=== PATIENT | female | born 1940 | race Caucasian/White ===

== ENCOUNTER 2018-10-31 12:56 | Day surgery (SDC) | payer OTHER ==
[2018-10-31] MEDS ORDERED: NA CHLORIDE 0.9% 500 ML ONE (13:18)
[2018-10-31] MEDS ORDERED: CYCLOPENTOLATE 1% OPTH 2 ML ONE (13:18)
[2018-10-31] MEDS ORDERED: LIDOCAINE 2% MPF 5 ML VIAL ONE ×2 (13:18→13:50)
[2018-10-31] MEDS ORDERED: BUPIVACAINE 0.25% PF 30 ML VIAL ONE (13:18)
[2018-10-31] MEDS ORDERED: PHENYLEPHRINE 10% OPTH 5ML ONE (13:18)
[2018-10-31 13:24] VITALS: O2SAT 97
[2018-10-31] MEDS ORDERED: CYCLOPENTOLATE 1% OPTH 2 ML OPTH ONE ×2 (13:25→13:30)
[2018-10-31] MEDS ORDERED: PHENYLEPHRINE 10% OPTH 5ML OPTH ONE ×2 (13:25→13:30)
[2018-10-31] MEDS ORDERED: NS 0.9% VIAL 10 ML ONE (13:34)
[2018-10-31] MEDS ORDERED: PROPOFOL 200 MG/20 ML VIAL IV ONE (13:49)
[2018-10-31] MEDS: BALANCED SALT IRRIG PLAIN 500 ML BTL IRR ONE ×2 (13:49→14:20)
[2018-10-31] MEDS: MOXIFLOXACIN HCL 10 DROPS/ML **OR USE OPTH ONE ×2 (13:50→14:20)
[2018-10-31] MEDS: DUOVISC 1 KIT OPTH ONE ×2 (13:50→14:20)
[2018-10-31] MEDS: EPINEPHRINE/PF 1 MG/ML AMP ONE ×4 (13:50→14:20)
[2018-10-31] MEDS: TETRACAINE HCL 0.5% 2ML OPTH ONE ×2 (13:53→14:13)
[2018-10-31] MEDS ORDERED: EPINEPHRINE/PF 1 MG/ML AMP ONE (14:23)
[2018-10-31] MEDS ORDERED: BSS OPTHALMIC SOL 15 ML BOT OPTH ONE (14:33)
--- NOTE | 2018-10-31 15:04 | P.BOP ---
Preoperative diagnosis: Nuclear sclerotic cataract OD Postoperative diagnosis: Same Primary procedure: Phacoemulsification with IOL OD Estimated blood loss: None Anesthesia: Local (Subtenon's infusion with anesthesia for cataract surgery) Complications: None Implants: SN60WF +20.0 Transferred to: Other (Day surgery) Condition: Good
[2018-10-31 15:12] VITALS: BP 166/41; TEMP 98.3
--- NOTE | 2018-11-01 02:38 | OP ---
Date of Procedure: 10/31/2018 Surgeon: Aletha Shaw MD Anesthesiologist: Kimmie Flores C.R.N.A. and Edward Rivera M.D. Preoperative Diagnosis: Nuclear slerotic cataract and Miosis, right eye. Operation Performed: Phacoemulsification with intraocular lens implant right eye complex with the use of iris retractors. Anesthesia: Per cataract surgery. Complications: None. Description Of The Procedure: In day surgery, the patient was prepped with Betadine and draped. A lid speculum was placed in the right eye. A conjunctival incision was made in the inferior nasal quadrant with Jose scissors. A 1:1 mixture of 2% Xylocaine and 0.25% bupivacaine was placed around the globe. Approximately 5 mL were used. A [place] balloon was placed on the eye for approximately 5 minutes. The patient was brought into the operative room. The patient was prepped and draped in the usual sterile fashion for ophthalmic surgery. A lid speculum was placed in the eye. Paracenteses were made superiorly and inferiorly in the limbal cornea. Viscoat was placed in the anterior chamber. A crescent blade was used to create a tunnel incision in the temporal cornea and a keratome was used to enter the anterior chamber. Five additional paracentesis sites were created with one at the wound, one 180 degrees from the wound, and three in the superior and inferior quadrants; through these, 5 iris retractors were placed. Provisc was placed in the eye and 360 degree capsulotomy was performed. The lens was hydrodissected with balanced salt solution and moved freely. The lens was removed in a stop and chop fashion. 29.05 CDE was required. Irrigation and aspiration were used to remove residual cortex. Provisc was placed in the eye. A SN60WF +20.0 diopter lens was placed in the capsular bag without complications. The iris retractors were removed. Irrigation and aspiration were used to remove residual viscoelastic. The paracentesis sites were hydrated with balanced salt solution and the wound and paracentesis sites were inspected and found to be watertight. Intracameral Vigamox 0.07 cc was injected at the end of the procedure. The eye was irrigated with balanced salt solution. The eye was patched with a soft cotton patch and Mims metal shield. The patient was returned to day surgery in good condition. Comments: A 1:5000 epinephrine was placed in the eye prior to Viscoat. The iris did not dilate adequately for capsulotomy and iris retractors were used. Discharge Instructions: Ms. Martin is discharged to home in good condition and is to follow up with Dr. Shaw in the morning. STEFAN/YUMIKO Voice ID: [id number] Report ID: [id number] MTDD
== END 2018-10-31 15:32 | disposition home or self-care (01) ==
LOC: OR 12:56
PROVIDERS: ATTEND Ophthalmology Retina Specialist
PROC: 08RJ3JZ Replacement of Right Lens with Synthetic Substitute, Percutaneous Approach (ICD-10-PCS; principal; 2018-10-31 12:15)
DX: H25.11 Age-related nuclear cataract, right eye (principal); H57.03 Miosis; I10 Essential (primary) hypertension; E78.5 Hyperlipidemia, unspecified; Z79.82 Long term (current) use of aspirin; Z79.899 Other long term (current) drug therapy; Z87.891 Personal history of nicotine dependence; Z87.09 Personal history of other diseases of the respiratory system
CPT/HCPCS: 66982; J0171 ×2; J2704; V2630

== ENCOUNTER 2019-04-13 21:16 | Observation (INO) | payer OTHER ==
[2019-04-14 00:21] LABS: Absolute Lymphocytes (CBC) 1.2 K/uL (0.7-4.9); Absolute Monocytes 0.7 K/uL (0.1-1.3); Absolute Neutrophil 10.3 K/uL (1.8-8.0); Basophils % 0.6 % (0-1.3); Eosinophils % 0.1 % (0-4.4); Lymphocytes % 9.9 % (15.3-44.8); MPV 10.4 fL (7.6-11.3); Monocytes % 5.4 % (3.3-12.3); RBC Red Blood Cell Count 4.28 M/uL (3.86-4.86)
[2019-04-14 00:27] LABS: Magnesium 2.5 mg/dL (1.8-2.4); Potassium 3.5 mmol/L (3.5-5.1)
--- NOTE | 2019-04-14 01:21 | EDPHYS ---
Physician Documentation [facility] Name: Lila Martin Age: 79 yrs Sex: Female : 1940 Arrival Date: 04/13/2019 Time: 21:23 Bed 4 Private MD: ED Physician Ar Valle HPI: 04/14 01:20 This 79 yrs old Female presents to ER via EMS with complaints of Fall Injury. gs 01:20 Details of fall: The patient fell from an upright position, while standing. Onset: The gs symptoms/episode began/occurred acutely. Associated injuries: The patient sustained injury to the head, contusion, left elbow, decreased range of motion, deformity, obvious fracture. Severity of symptoms: At their worst the symptoms were severe, in the emergency department the symptoms are unchanged. The patient has not experienced similar symptoms in the past. Historical: - Allergies: 04/13 21:41 Codeine; fc 21:41 Guaifenesin; fc - Home Meds: 21:41 Aspir-81 81 mg Oral TbEC 1 tab once daily [Active]; Zantac 150 mg Oral tab 1 tab once fc daily [Active]; lisinopril 5 mg Oral tab 1 tab twice a day [Active]; pravastatin 40 mg Oral tab 1 tab nightly [Active]; Singulair 10 mg Oral tab 1 tab once daily [Active]; citalopram 20 mg tab 1 tab once daily [Active]; - PMHx: 21:41 Depression; Hypertension; Hyperlipidemia; Anemia; GI Bleed; GERD; osteoarthritis; High fc Cholesterol; COPD; Sleep Apnea; - PSHx: 21:41 L hip surgery; fc - Immunization history: Last tetanus immunization: - up to date. - Social history:: Smoking status: Patient uses tobacco products, smokes one pack cigarettes per day. Patient/guardian denies using alcohol, street drugs. - Ebola Screening: : Patient negative for fever greater than or equal to 101.5 degrees Fahrenheit, and additional compatible Ebola Virus Disease symptoms Patient denies exposure to infectious person Patient denies travel to an Ebola-affected area in the 21 days before illness onset. ROS: 04/14 01:20 All other systems are negative. gs Exam: 01:20 Head/Face: Normocephalic, atraumatic. Eyes: Pupils equal round and reactive to light, gs extra-ocular motions intact. Lids and lashes normal. Conjunctiva and sclera are non-icteric and not injected. Cornea within normal limits. Periorbital areas with no swelling, redness, or edema. ENT: Nares patent. No nasal discharge, no septal abnormalities noted. Tympanic membranes are normal and external auditory canals are clear. Oropharynx with no redness, swelling, or masses, exudates, or evidence of obstruction, uvula midline. Mucous membranes moist. Chest/axilla: Normal chest wall appearance and motion. Nontender with no deformity. No lesions are appreciated. Cardiovascular: Regular rate and rhythm with a normal S1 and S2. No gallops, murmurs, or rubs. Normal PMI, no JVD. No pulse deficits. Respiratory: Lungs have equal breath sounds bilaterally, clear to auscultation and percussion. No rales, rhonchi or wheezes noted. No increased work of breathing, no retractions or nasal flaring. Abdomen/GI: Soft, non-tender, with normal bowel sounds. No distension or tympany. No guarding or rebound. No evidence of tenderness throughout. Skin: Warm, dry with normal turgor. Normal color with no rashes, no lesions, and no evidence of cellulitis. Neuro: Awake and alert, GCS 15, oriented to person, place, time, and situation. Cranial nerves II-XII grossly intact. Motor strength 5/5 in all extremities. Sensory grossly intact. Cerebellar exam normal. Normal gait. 01:20 Constitutional: The patient appears alert, awake. 01:20 Neck: C-spine: vertebral tenderness, that is mild. 01:20 Back: vertebral tenderness, is appreciated at T1, T5, T6 and T7. 01:20 Musculoskeletal/extremity: Pulses: are normal with no appreciated deficits, Sensation intact. Joints: the left elbow displays deformity, effusion, limited range of motion, painful range of motion, swelling, tenderness. Vital Signs: 04/13 21:15 BP 156 / 109; Pulse 78; Resp 20; Temp 98.0(O); Pulse Ox 94% on R/A; Weight 52.16 kg fc (R); Height 5 ft. 3 in. (160.02 cm) (R); Pain 1/10; 22:45 BP 163 / 92; Pulse 85; Resp 20; Pulse Ox 100% on 2 lpm NC; Pain 0/10; ao 04/14 00:00 BP 119 / 72; Pulse 89; Resp 20; Pulse Ox 96% ; ao 04/13 21:15 Body Mass Index 20.37 (52.16 kg, 160.02 cm) fc Kyle Coma Score: 04/13 21:15 Eye Response: spontaneous(4). Verbal Response: oriented(5). Motor Response: obeys fc commands(6). Total: 15. Trauma Score (Adult): 21:15 Eye Response: spontaneous(1); Verbal Response: oriented(1); Motor Response: obeys fc commands(2); Systolic BP: > 89 mm Hg(4); Respiratory Rate: 10 to 29 per min(4); [place] Score: 15; Trauma Score: 12 MDM: 21:31 Patient medically screened. 04/14 01:20 Differential diagnosis: closed head injury, contusion, fracture. Data reviewed: vital gs signs, nurses notes, lab test result(s), EKG, radiologic studies. Counseling: I had a detailed discussion with the patient and/or guardian regarding: the historical points, exam findings, and any diagnostic results supporting the discharge/admit diagnosis. Response to treatment: the patient's symptoms have markedly improved after treatment. ED course: intermittent lbbb no chest pain. 04/13 23:25 Order name: CBC with Automated Diff; Complete Time: 01:03 [facility] 04/13 23:25 Order name: CBC with Diff 04/13 23:25 Order name: Basic Metabolic Panel 04/13 23:25 Order name: Magnesium 04/14 00:26 Order name: Troponin (emerg Dept Use Only) 04/14 01:31 Order name: Troponin I [facility] 04/13 21:31 Order name: CT Head C Spine 04/13 21:31 Order name: CT Chest Wo Con 04/13 21:34 Order name: Elbow Left 2 View [facility]IL 04/13 21:36 Order name: Pelvis XRAY 04/14 01:31 Order name: Troponin I [facility] 04/14 01:32 Order name: Echo with Doppler [facility] 04/13 23:13 Order name: Splint - Elbow - Posterior; Complete Time: 01:50 04/14 01:32 Order name: Social Service Consult [facility] 05/24 01:32 Order name: Heart Healthy [facility] 04/14 01:32 Order name: EKG Electrocardiogram EDMS Administered Medications: No medications were administered Disposition: 04/14/19 01:20 Hospitalization ordered by Austin Finley for Observation. Preliminary diagnosis are Displaced fracture of olecranon process with intraarticular extension of left ulna, Atrioventricular and left bundle-branch block - new intermittent. - Bed requested for Telemetry/MedSurg (observation). - Status is Observation. ao - Condition is Stable. - Problem is new. - Symptoms have improved. UTI on Admission? No Signatures: Dispatcher [employer] EDIL Kimberli Rivera, RN RN Tigist Torres RN RN ed1 Wander Mcbride RN RN Ar Escobar MD MD gs Corrections: (The following items were deleted from the chart) 04/13 21:34 21:32 Elbow Left 3 View+RAD.RAD.BRZ ordered. EDIL EDIL 21:42 21:32 Pelvis Wo Cont+CT.RAD.BRZ ordered. EDIL EDIL 04/14 01:40 01:20 Hospitalization Ordered by Austin Finley MD for Observation. Preliminary ed1 diagnosis is Displaced fracture of olecranon process with intraarticular extension of left ulna; Atrioventricular and left bundle-branch block - new intermittent. Bed requested for Telemetry/MedSurg (observation). Status is Observation. Condition is Stable. Problem is new. Symptoms have improved. UTI on Admission? No. gs 02:25 01:40 04/14/2019 01:20 Hospitalization Ordered by Austin Finley MD for Observation. ao Preliminary diagnosis is Displaced fracture of olecranon process with intraarticular extension of left ulna; Atrioventricular and left bundle-branch block - new intermittent. Bed requested for Telemetry/MedSurg (observation). Status is Observation. Condition is Stable. Problem is new. Symptoms have improved. UTI on Admission? No. ed1
--- NOTE | 2019-04-14 01:21 | ER ---
Nurse's Notes [facility] Name: Lila Martin Age: 79 yrs Sex: Female : 1940 Arrival Date: 04/13/2019 Time: 21:23 Bed 4 Private MD: Diagnosis: Displaced fracture of olecranon process with intraarticular extension of left ulna;Atrioventricular and left bundle-branch block-new intermittent Presentation: 04/13 21:15 Presenting complaint: EMS states: that pt was standing in bathroom with one foot in the fc sink cleaning it and fell backwards. Positive LOC. Pt having swelling and pain to left elbow, knot to back of head and has vomited x5 since EMS sweet pickle maker. Care prior to arrival: Medication(s) given: Phenergan, 12.5 mg, zofran 4 mg, IV initiated. 20 GA, in the right wrist. Mechanism of Injury: Fall from standing position. Trauma event details: Injury occurred in the [facility], Injury occurred: at home. Injury occurred: April 13, 2019. 21:15 Acuity: BRIDGETT 2 fc 21:15 Method Of Arrival: EMS: [facility] 21:15 Transition of care: patient was not received from another setting of care. Onset of symptoms was April 13, 2019. Risk Assessment: Do you want to hurt yourself or someone else? Patient reports no desire to harm self or others. Initial Sepsis Screen: Does the patient meet any 2 criteria? No. Patient's initial sepsis screen is negative. Does the patient have a suspected source of infection? No. Patient's initial sepsis screen is negative. Trauma Activation: Alert Physician: ED Physician; Name: Tori; Notified At: 21:14; Arrived At: 21:14 Physician: General Surgeon; Name: ; Notified At: 21:14; Arrived At: Physician: Radiology; Name: Eileen Sullivan Dillion, victoria; Notified At: 21:14; Arrived At: 21:15 Physician: Respiratory; Name: ; Notified At: 21:14; Arrived At: Physician: Lab; Name: ; Notified At: 21:14; Arrived At: Historical: - Allergies: 21:41 Codeine; fc 21:41 Guaifenesin; fc - Home Meds: 21:41 Aspir-81 81 mg Oral TbEC 1 tab once daily [Active]; Zantac 150 mg Oral tab 1 tab once fc daily [Active]; lisinopril 5 mg Oral tab 1 tab twice a day [Active]; pravastatin 40 mg Oral tab 1 tab nightly [Active]; Singulair 10 mg Oral tab 1 tab once daily [Active]; citalopram 20 mg tab 1 tab once daily [Active]; - PMHx: 21:41 Depression; Hypertension; Hyperlipidemia; Anemia; GI Bleed; GERD; osteoarthritis; High fc Cholesterol; COPD; Sleep Apnea; - PSHx: 21:41 L hip surgery; fc - Immunization history: Last tetanus immunization: - up to date. - Social history:: Smoking status: Patient uses tobacco products, smokes one pack cigarettes per day. Patient/guardian denies using alcohol, street drugs. - Ebola Screening: : Patient negative for fever greater than or equal to 101.5 degrees Fahrenheit, and additional compatible Ebola Virus Disease symptoms Patient denies exposure to infectious person Patient denies travel to an Ebola-affected area in the 21 days before illness onset. Screenin:15 Abuse screen: Denies threats or abuse. Tuberculosis screening: No symptoms or risk fc factors identified. 21:15 Nutritional screening: No deficits noted. Fall Risk Fall in past 12 months (25 points). fc Secondary diagnosis (15 points) impaired mobility, IV access (20 points). Ambulatory Aid- None/Bed Rest/Nurse Assist (0 pts). Gait- Weak (10 pts.). Mental Status- Overestimates/Forgets Limitations (15 pts.). Total Guzmán Fall Scale indicates High Risk Score (45 or more points). Fall prevention measures have been instituted. Side Rails Up X 2 Placed Close to Nursing Station Frequent Obs/Assessments Occuring Family Present and informed to notify staff if the need to leave the bedside As available patient and family educated on Fall Prevention Program and Strategies. Primary Survey: 21:15 NO uncontrolled hemorrhage observed. A: The patient is alert. Airway: patent, Oral ao cavity: clear. Breathing/Chest: Respiratory pattern: regular, Respiratory effort: spontaneous, unlabored, Breath sounds: clear, Chest inspection: symmetrical rise and fall of the chest. Circulation: Cardiac rhythm: sinus rhythm Pulses: palpable right radial artery, right posterior tibial artery, right dorsalis pedis artery, left radial artery, left posterior tibial artery and left dorsalis pedis artery. Skin color: pink, Skin temperature: cold. Disability Alert. Exposure/Environment: All clothing and personal items were removed. Clothing may be used as evidence. Items were removed and preserved. There is no evidence of uncontrolled external bleeding. Obvious injury(ies) are noted at this time: left arm reports pain. 21:45 Reassessment Breathing/Chest Respiratory pattern Regular Respiratory effort Spontaneous ao Unlabored Breath sounds Clear Diminished Chest inspection Symmetrical Circulation Heart rhythm Sinus rhythm Heart tones Present Pulses Palpable Color Marceline Temperature Warm Disability Alert. Assessment: 21:15 General: Appears in no apparent distress. uncomfortable, well groomed, well developed, ao well nourished, Behavior is flat, listless. Pain: Complains of pain in left arm Pain currently is 1 out of 10 on a pain scale. Neuro: Level of Consciousness is awake, alert, obeys commands, Oriented to person, place, time, Moves all extremities. Full function Speech is normal, Facial symmetry appears normal. Cardiovascular: Capillary refill < 3 seconds Patient's skin is warm and dry. Respiratory: Airway is patent Respiratory effort is even, unlabored, Respiratory pattern is regular, symmetrical. GI: Abdomen is round obese, Bowel sounds present X 4 quads. : No signs and/or symptoms were reported regarding the genitourinary system. EENT: No signs and/or symptoms were reported regarding the EENT system. Derm: Skin is intact, Skin is pink, warm \T\ dry. normal, Skin temperature is warm. Musculoskeletal: Circulation, motion, and sensation intact. Range of motion: intact in all extremities. Injury Description: Fall from standing position. Family report LOC. Received patient with on boar and with a neck collar. 22:44 Reassessment: Patient appears in no apparent distress at this time. No changes from ao previously documented assessment. Patient and/or family updated on plan of care and expected duration. Pain level reassessed. Per Dr Valle patient is clear to get her c-collar off. C-Collar was removed.. 04/14 00:01 Reassessment: Patient appears in no apparent distress at this time. Patient and/or ao family updated on plan of care and expected duration. Pain level reassessed. Monitoring hearth rhythm. Dr Valle notified of unknown hearth rhythm. 02:18 Reassessment: Patient appears in no apparent distress at this time. Patient and/or ao family updated on plan of care and expected duration. Pain level reassessed. Report called. patient to be taking to room 412. Vital Signs: 04/13 21:15 BP 156 / 109; Pulse 78; Resp 20; Temp 98.0(O); Pulse Ox 94% on R/A; Weight 52.16 kg fc (R); Height 5 ft. 3 in. (160.02 cm) (R); Pain 1/10; 22:45 BP 163 / 92; Pulse 85; Resp 20; Pulse Ox 100% on 2 lpm NC; Pain 0/10; ao 04/14 00:00 BP 119 / 72; Pulse 89; Resp 20; Pulse Ox 96% ; ao 04/13 21:15 Body Mass Index 20.37 (52.16 kg, 160.02 cm) fc Kyle Coma Score: 04/13 21:15 Eye Response: spontaneous(4). Verbal Response: oriented(5). Motor Response: obeys fc commands(6). Total: 15. Trauma Score (Adult): 21:15 Eye Response: spontaneous(1); Verbal Response: oriented(1); Motor Response: obeys fc commands(2); Systolic BP: > 89 mm Hg(4); Respiratory Rate: 10 to 29 per min(4); [place] Score: 15; Trauma Score: 12 ED Course: 21:15 Patient has correct armband on for positive identification. Placed in gown. Bed in low fc position. Call light in reach. Side rails up X2. 21:15 Arm band placed on Patient placed in an exam room, on a stretcher. fc 21:15 Warm blanket given. mw2 21:15 Thermoregulation: warm blanket given to patient. fc 21:15 No provider procedures requiring assistance completed. Maintain EMS IV. Dressing fc intact. Good blood return noted. Site clean \T\ dry. Gauge \T\ site: 20 gauge to right wrist. 21:23 Patient arrived in ED. fc 21:24 Ar Valle MD is Attending Physician. gs 21:28 Wander Mcbride RN is Primary Nurse. ao 21:29 Triage completed. fc 21:37 Elbow Left 2 View In Process Unspecified. EDMS 21:37 Pelvis XRAY In Process Unspecified. EDMS 21:45 Patient maintains SpO2 saturation greater than 95% on room air. ao 22:20 CT Head C Spine In Process Unspecified. EDMS 22:20 CT Chest Wo Con In Process Unspecified. EDMS 04/14 00:37 Orthoglass splint: posterior long arm splint applied to the left arm. Sling applied to oe left arm. 01:17 Austin Finley MD is Hospitalizing Provider. gs 02:22 IV discontinued, intact, bleeding controlled, No redness/swelling at site. Pressure ao dressing applied. Administered Medications: No medications were administered Intake: 02:23 PO: 40ml (Water); Total: 40ml. ao Outcome: 01:20 Decision to Hospitalize by Provider. gs 02:21 Admitted to Tele accompanied by [facility], room 412, with chart. ao 02:21 Condition: stable 02:21 Instructed on the need for admit. 02:23 Medical clearPatient's length of stay extended due to ao 02:25 Patient left the ED. ao Signatures: Dispatcher [employer] EDWY Kimberli Rivera, RN RN Wander Mcbride RN RN ao Bryant Mazariegos Gregory, MD MD Rohini Curtis mw2
[2019-04-14] MEDS ORDERED: ONDANSETRON 4 MG/2 ML VIAL IV PRN (01:24)
[2019-04-14] MEDS ORDERED: ACETAMINOPHEN 500 MG TAB PO PRN (01:24)
[2019-04-14 02:32] VITALS: O2SAT 96
[2019-04-14 02:40] LABS: Troponin (Emerg Dept Use Only) 0.02 ng/mL (0.0-0.045)
[2019-04-14 04:14] VITALS: BMI 19.8
[2019-04-14 04:36] LABS: Urine Appearance CLEAR; Urine Bilirubin NEGATIVE (NEG); Urine Blood TRACE (NEG); Urine Color YELLOW; Urine Glucose NEGATIVE (NEG); Urine Protein TRACE (NEG)
[2019-04-14 04:44] LABS: Urine Microscopic Reflex ORDER UMIC
[2019-04-14 04:48] LABS: Urine Bacteria <20 /HPF (<20); Urine Culture Reflex Order REFLEXED
--- NOTE | 2019-04-14 07:25 | EKG ---
Test Date: 2019-04-13 Test Time: 22:22:33 Life Enrichment Specialist: MIA MEASUREMENT RESULTS: Intervals: Rate: 77 GA: 170 QRSD: 152 QT: 448 QTc: 506 [place]: P: 77 GA: 170 QRS: 50 T: 211 INTERPRETIVE STATEMENTS: Normal sinus rhythm Left bundle branch block Abnormal ECG Compared to ECG 04/13/2019 21:32:17 Left bundle-branch block now present Atrial premature complex(es) no longer present Myocardial infarct finding no longer present Electronically Signed On 04-14-19 07:25:13 CDT by Patel Woodard
--- NOTE | 2019-04-14 07:25 | EKG ---
Test Date: 2019-04-13 Test Time: 21:32:17 Sash Repairer: BRENNA MEASUREMENT RESULTS: Intervals: Rate: 70 [place]: 172 QRSD: 82 QT: 462 QTc: 498 [place]: P: 78 [place]: 172 QRS: 17 T: 63 INTERPRETIVE STATEMENTS: Sinus rhythm with premature atrial complexes Septal infarct, age undetermined Abnormal ECG Compared to ECG 12/30/2016 13:04:19 Atrial premature complex(es) now present Myocardial infarct finding now present Left ventricular hypertrophy no longer present Electronically Signed On 04-14-19 07:25:15 CDT by Patel Woodard
--- NOTE | 2019-04-14 07:54 | RAD REPORT ---
EXAM DESCRIPTION: RAD - Elbow Left 2 View - 04/13/2019 9:36 pm CLINICAL HISTORY: Fall, elbow pain COMPARISON: None. FINDINGS: Underlying osteopenic changes are present. Transverse fracture is present through the olec ranon of the ulna. There is approximately 2 cm distraction and several small fracture fragments along the main fracture plane. No pathologic component. Distal humerus and proximal radius appear intact. Prominent contusion or edema changes in the posterior soft tissues. IMPRESSION: Proximal left ulna fracture as detailed.
--- NOTE | 2019-04-14 07:55 | RAD REPORT ---
EXAM DESCRIPTION: RAD - Pelvis - 04/13/2019 9:37 pm CLINICAL HISTORY: Fall, pelvic pain COMPARISON: None. TECHNIQUE: AP imaging of the pelvis was obtained. FINDINGS: Bones are osteopenic. Hardware is in place from prior left hip fracture repair. Lower lumbar degenerative change and scoliotic curvature noted only partially visualized. Dense arter ial tree calcifications are present. No fracture of the bony pelvis seen. Motion and overlying bowel gas limits sacral ala assessment. No fracture or acute finding at either hip joint. IMPRESSION: Osteopenic and degenerative changes are present. Osteopenia limits detail particularly o f the sacral ala. No fracture or acute bone process identifiable.
[2019-04-14 08:17] VITALS: BP 126/87; TEMP 97
--- NOTE | 2019-04-14 08:27 | P.HP ---
Certification for Inpatient Patient admitted to: Inpatient With expected LOS: >2 Midnights Patient will require the following post-hospital care: None Practitioner: I am a practitioner with admitting privileges, knowledge of patient current condition, hospital course, and medical plan of care. Services: Services provided to patient in accordance with Admission requirements found in Title 42 Section 412.3 of the Code of Federal Regulations Patient History Date of Service: 04/13/19 Reason for admission: Shortness of breath and chest pain/ status post fall with elbow fracture History of Present Illness: Patient is an 79-year-old female who presents to the hospital after falling. She apparently was washing her feet and the sink and fell backwards. She landed on her left elbow and suffered a displaced fracture. It is planned in the emergency room. Incidentally she was having abnormal rhythms. She would go from a normal sinus rhythm to a left bundle-branch block per ER physician. Patient felt a little lightheaded and short of breath as well. She smokes a pack a day and and has been doing it for almost 60 years. She has a history of COPD; however, she does not use any long-acting beta agonist or steroid inhalers. She does get around with a cane fairly well. Her and her live together by themselves. Patient's daughter was a nurse here at our hospital for quite a while. Patient's daughter and their son-in-law, who is a local insurance defense attorney, help with her day-to-day care as well. Patient may need home health arrangements at the time of discharge but will get Orthopedic and cardiology evaluation for further workup at this time. CT of the head, neck, and chest did not reveal any significant abnormalities. Allergies codeine Allergy (Verified 04/14/19 02:56) Rash guaifenesin [From Robitussin] Allergy (Verified 04/14/19 02:56) Itching/Hives/Rash Cough Syrup Allergy (Uncoded 10/26/18 10:13) Unknown Home Medications: Aspirin [Aspirin EC 81 MG] 81 mg PO DAILY 04/14/19 Citalopram [Celexa] 20 mg PO DAILY 04/14/19 Montelukast [Singulair] 10 mg PO DAILY 04/14/19 Pravastatin Sodium 40 mg PO BEDTIME 04/14/19 Ranitidine [Zantac] 150 mg PO DAILY 04/14/19 - Past Medical/Surgical History Has patient received pneumonia vaccine in the past: Yes Diabetic: No -: htn -: acid reflux -: copd -: scoliosis -: depression -: dementia -: hysterectomy -: cholecystectomy -: cataract sx- 1 year ago left eye -: -: left hip surgery - Family History Father Medical History: Hypertension, Lung disease, Cancer Notes: high cholesterol Mother Medical History: Hypertension, Lung disease, Cancer, Other (see notes) Notes: stomach/lung cancer; high cholesterol - Social History Smoking Status: Current every day smoker Alcohol use: No CD- Drugs: No Caffeine use: Yes Place of Residence: Home Review of Systems 10-point ROS is otherwise unremarkable Physical Examination - Vital Signs Temperature: 97.0 F Blood Pressure: 126/87 Pulse: 80 Respirations: 18 Pulse Ox (%): 100 - Studies Laboratory Data (last 24 hrs) 04/13/19 23:45: Sodium 141, Potassium 3.5, BUN 19 H, Creatinine 0.73, Glucose 114 H, Magnesium 2.5 H 04/13/19 23:45: WBC 12.3 H, Hgb 14.0, Hct 42.0, Plt Count 224 Assessment & Plan - Advance Directives Does patient have a Living Will: No Does patient have a Durable POA for Healthcare: No
--- NOTE | 2019-04-14 08:41 | P.HP ---
Patient History Reason for admission: Shortness of breath and chest pain/ status post fall with elbow fracture History of Present Illness: Patient is an 79-year-old female who presents to the hospital after falling. She apparently was washing her feet and the sink and fell backwards. She landed on her left elbow and suffered a displaced fracture. It is planned in the emergency room. Incidentally she was having abnormal rhythms. She would go from a normal sinus rhythm to a left bundle-branch block per ER physician. Patient felt a little lightheaded and short of breath as well. She smokes a pack a day and and has been doing it for almost 60 years. She has a history of COPD; however, she does not use any long-acting beta agonist or steroid inhalers. She does get around with a cane fairly well. Her and her live together by themselves. Patient's daughter was a nurse here at our hospital for quite a while. Patient's daughter and their son-in-law, who is a local university archivist, help with her day-to-day care as well. Patient may need home health arrangements at the time of discharge but will get Orthopedic and cardiology evaluation for further workup at this time. CT of the head, neck, and chest did not reveal any significant abnormalities. Allergies codeine Allergy (Verified 04/14/19 02:56) Rash guaifenesin [From Robitussin] Allergy (Verified 04/14/19 02:56) Itching/Hives/Rash Cough Syrup Allergy (Uncoded 10/26/18 10:13) Unknown Home Medications: Aspirin [Aspirin EC 81 MG] 81 mg PO DAILY 04/14/19 Citalopram [Celexa] 20 mg PO DAILY 04/14/19 Montelukast [Singulair] 10 mg PO DAILY 04/14/19 Pravastatin Sodium 40 mg PO BEDTIME 04/14/19 Ranitidine [Zantac] 150 mg PO DAILY 04/14/19 - Past Medical/Surgical History Has patient received pneumonia vaccine in the past: Yes Diabetic: No -: htn -: acid reflux -: copd -: scoliosis -: depression -: dementia -: hysterectomy -: cholecystectomy -: cataract sx- 1 year ago left eye -: -: left hip surgery - Family History Father Medical History: Hypertension, Lung disease, Cancer Notes: high cholesterol Mother Medical History: Hypertension, Lung disease, Cancer, Other (see notes) Notes: stomach/lung cancer; high cholesterol - Social History Smoking Status: Current every day smoker Alcohol use: No CD- Drugs: No Caffeine use: Yes Place of Residence: Home Physical Examination - Vital Signs Temperature: 97.0 F Blood Pressure: 126/87 Pulse: 80 Respirations: 18 Pulse Ox (%): 100 - Physical Exam General: Alert, In no apparent distress, Oriented x3 HEENT: Atraumatic, Normocephalic, PERRLA Neck: Supple, 2+ carotid pulse no bruit, JVD not distended, No Thyromegaly Respiratory: Diminished, Expiratory wheezes Cardiovascular: Regular rate/rhythm, Normal S1 S2, Systolic murmur Gastrointestinal: Soft and benign, Non-distended, No tenderness, No masses, No rebound, No guarding Musculoskeletal: No clubbing, No swelling Integumentary: No rashes, No breakdown, No tenderness/swelling Neurological: Normal speech, Normal tone, Sensation intact, Cranial nerves 3-12 intact, Abnormal gait, Abnormal strength Lymphatics: No axilla or inguinal lymphadenopathy - Studies Laboratory Data (last 24 hrs) 04/13/19 23:45: Sodium 141, Potassium 3.5, BUN 19 H, Creatinine 0.73, Glucose 114 H, Magnesium 2.5 H 04/13/19 23:45: WBC 12.3 H, Hgb 14.0, Hct 42.0, Plt Count 224 Assessment & Plan - Problems (Diagnosis) (1) Left elbow fracture Current Visit: Yes Status: Acute (2) Arrhythmia Onset Date: 10/02/15 Current Visit: No Status: Acute (3) COPD (chronic obstructive pulmonary disease) Onset Date: 10/15/15 Current Visit: No Status: Acute (4) Depressive disorder Onset Date: 09/29/16 Current Visit: No Status: Acute (5) Hyperlipidemia Onset Date: 09/29/16 Current Visit: No Status: Acute (6) Hypertension Onset Date: 10/15/15 Current Visit: No Status: Acute (7) Weakness generalized Onset Date: 10/02/15 Current Visit: No Status: Acute (8) Tobacco abuse Current Visit: No Status: Chronic - Plan Plan: 1. Orthopedic consultation 2. Cardiology consultation 3. Monitor on telemetry 4. Echocardiogram 5. Serial troponin and EKG in a.m. 6. Monitor electrolytes 7. Patient has been smoking for quite a while and may need to refrain going forward 8. patient will need inpatient admission because of recent elbow fracture which may need to be repaired. It is displaced and without repairing get this may lead to her becoming more inactive and at her age may increase her risk of morbidity and mortality. We will await orthopedic evaluation. Patient is still having quite a bit of pain at this time as well. Patient is also having arrhythmias. She has been smoking for quite a while and her risk of cardiac disease is significant. She is more short of breath at baseline than normal. She could be having atypical symptoms. Will get repeat echo and troponins as well as echocardiogram. Patient requires numerous consultations and may need additional interventions prior to discharging so will keep her inpatient at this time. Discharge Plan: Home Plan to discharge in: Greater than 2 days - Advance Directives Does patient have a Living Will: No Does patient have a Durable POA for Healthcare: No - Code Status/Comfort Care Code Status Assessed: Yes Code Status: Full Code Critical Care: No Time Spent Managing PTS Care (In Minutes): 50
[2019-04-14] MEDS ORDERED: CITALOPRAM 10 MG TABLET PO SCH (09:00)
[2019-04-14] MEDS ORDERED: MONTELUKAST 10 MG TAB PO SCH (09:00)
[2019-04-14] MEDS ORDERED: ENOXAPARIN 40 MG/0.4 ML SQ SCH (09:00)
--- NOTE | 2019-04-14 10:15 | P.SSS ---
Patient History Date of Service: 04/14/19 Reason for admission: Shortness of breath and chest pain/ status post fall with elbow fracture History of Present Illness: Patient is an 79-year-old female who presents to the hospital after falling. She apparently was washing her feet and the sink and fell backwards. She landed on her left elbow and suffered a displaced fracture. It is planned in the emergency room. Incidentally she was having abnormal rhythms. She would go from a normal sinus rhythm to a left bundle-branch block per ER physician. Patient felt a little lightheaded and short of breath as well. She smokes a pack a day and and has been doing it for almost 60 years. She has a history of COPD; however, she does not use any long-acting beta agonist or steroid inhalers. She does get around with a cane fairly well. Her and her live together by themselves. Patient's daughter was a nurse here at our hospital for quite a while. Patient's daughter and their son-in-law, who is a local trust and estates attorney, help with her day-to-day care as well. Patient may need home health arrangements at the time of discharge but will get Orthopedic and cardiology evaluation for further workup at this time. CT of the head, neck, and chest did not reveal any significant abnormalities. Allergies codeine Allergy (Verified 04/14/19 02:56) Rash guaifenesin [From Robitussin] Allergy (Verified 04/14/19 02:56) Itching/Hives/Rash Cough Syrup Allergy (Uncoded 10/26/18 10:13) Unknown Home Medications: Aspirin [Aspirin EC 81 MG] 81 mg PO DAILY 04/14/19 Citalopram [Celexa*] 20 mg PO DAILY 04/14/19 Montelukast [Singulair*] 10 mg PO DAILY 04/14/19 Pravastatin Sodium 40 mg PO BEDTIME 04/14/19 Ranitidine [Zantac*] 150 mg PO DAILY 04/14/19 traMADol HCL [Ultram*] 50 mg PO Q6H PRN #20 tab 04/14/19 - Past Medical/Surgical History Has patient received pneumonia vaccine in the past: Yes Diabetic: No -: htn -: acid reflux -: copd -: scoliosis -: depression -: dementia -: hysterectomy -: cholecystectomy -: cataract sx- 1 year ago left eye -: -: left hip surgery - Family History Father -: Hypertension, Lung disease, Cancer Notes: high cholesterol Mother -: Hypertension, Lung disease, Cancer, Other (see notes) Notes: stomach/lung cancer; high cholesterol - Social History Smoking Status: Current every day smoker Alcohol use: No CD- Drugs: No Caffeine use: Yes Place of Residence: Home Review of Systems 10-point ROS is otherwise unremarkable Physical Examination - Vital Signs Temperature: 97.0 F Blood Pressure: 126/87 Pulse: 80 Respirations: 18 Pulse Ox (%): 100 - Physical Exam General: Alert, In no apparent distress HEENT: Atraumatic, PERRLA, Mucous membr. moist/pink, EOMI, Sclerae nonicteric Neck: Supple, 2+ carotid pulse no bruit, No LAD, Without JVD or thyroid abnormality Respiratory: Clear to auscultation bilaterally, Normal air movement Cardiovascular: Regular rate/rhythm, Normal S1 S2 Gastrointestinal: Normal bowel sounds, No tenderness Musculoskeletal: Other (Left Elbow in Sling now ) Integumentary: No rashes Neurological: Normal speech, Normal tone Lymphatics: No axilla or inguinal lymphadenopathy - Studies Laboratory Data (last 24 hrs) 04/13/19 23:45: Sodium 141, Potassium 3.5, BUN 19 H, Creatinine 0.73, Glucose 114 H, Magnesium 2.5 H 04/13/19 23:45: WBC 12.3 H, Hgb 14.0, Hct 42.0, Plt Count 224 - Diagnosis (Problem(s)) (1) Left elbow fracture Current Visit: Yes Status: Acute Qualifiers: Encounter type: initial encounter Fracture type: closed Qualified Code(s) : S42.402A - Unspecified fracture of lower end of left humerus, initial encounter for closed fracture (2) Arrhythmia Onset Date: 10/02/15 Current Visit: No Status: Acute Qualifiers: Arrhythmia type: other cardiac arrhythmia Qualified Code(s): I49.8 - Other specified cardiac arrhythmias (3) COPD (chronic obstructive pulmonary disease) Onset Date: 10/15/15 Current Visit: No Status: Chronic Qualifiers: COPD type: chronic bronchitis Chronic bronchitis type: simple Qualified Code(s): J41.0 - Simple chronic bronchitis (4) Dyslipidemia Onset Date: 10/15/15 Current Visit: No Status: Chronic (5) GERD (gastroesophageal reflux disease) Onset Date: 09/29/16 Current Visit: No Status: Chronic Qualifiers: Esophagitis presence: without esophagitis Qualified Code(s): K21.9 - Gastro -esophageal reflux disease without esophagitis (6) Hyperlipidemia Onset Date: 09/29/16 Current Visit: No Status: Chronic Qualifiers: Hyperlipidemia type: mixed hyperlipidemia Qualified Code(s): E78.2 - Mixed hyperlipidemia (7) Hypertension Onset Date: 10/15/15 Current Visit: No Status: Chronic Qualifiers: Hypertension type: essential hypertension Qualified Code(s): I10 - Essential (primary) hypertension Treatment Summary: Pt remained stable while in the hospital Pt was seen by Orthopedics who reccs Surgery in 1 week. Pt cleared for surgery by Cards here. ECHO done and pt DC home today to f.u with Ortho for outpt surgery. - Disposition Disposition: ROUTINE DISCHARGE Condition: FAIR Patient Discharge Instructions: Please f.u with PCP and Ortho in 1 week post discharge. Please f.u with Cardiology in 1 to 2 days post discharge. New medication. Tramadol 50mg q6h PRN for pain. Your ECHO and EKG are WNL. Diet: Regular Activity: Ad meliton
--- NOTE | 2019-04-14 10:40 | RAD REPORT ---
EXAM DESCRIPTION: CT - Head C Spine Mpr Wo Con - 04/13/2019 10:19 pm CLINICAL HISTORY: 79 years Female SMASH INJURY COMPARISON: None TECHNIQUE: Images were obtained in axial, sagittal, and coronal planes. This exam was performed according to our departmental dose-optimization program which includes use of Automated Exposure Control, adjustment of the mA and/or kV according to patient size and/or use of i terative reconstruction technique. FINDINGS: CT brain: Ventricular system is moderately enlarged. Mild prominence of the cortical sulci . Mild cerebral volume loss. No abnormal areas of increased or decreased attenuation are seen involvi ng the brain parenchyma. No extra-axial fluid collections. No evidence for skull fracture. Symmetric aeration mastoid air cells bilaterally. Unremarkable paranasal sinuses. CT cervical spine: Height of the vertebral bodies is intact. Satisfactory alignment articular facets. Intact odontoid and predental space. Prevertebral soft tissues appear normal. Intact ring C1. Posteri or elements intact all levels. Intact occipital condyles. No abnormality lung apices bilaterally. No focal disc protrusion seen. Mild anterior osteophyte formation. IMPRESSION: No acute intracranial abnormality. No evidence for hemorrhage, mass lesion, or large acu te infarction. No acute fracture or subluxation involving the cervical spine line. Electronically signed by: Kamla Baeza MD 04/13/2019 10:29 PM CDT Due to temporary technical issues with the PACS/Fluency reporting system, reports are being signed by the in house radiologist as a courtesy to ensure prompt reporting. The interpreting radiologist is f ully responsible for the content of the report.
--- NOTE | 2019-04-14 10:41 | RAD REPORT ---
EXAM DESCRIPTION: CT - Thorax Wo Dave - 04/13/2019 10:19 pm CLINICAL HISTORY: PAIN COMPARISON: None. TECHNIQUE: CT CHEST WITHOUT IV CONTRAST on 04/13/2019 9:31 PM CDT This exam was performed according to our departmental dose-optimization program, which includes autom ated exposure control, adjustment of the mA and/or kV according to patient size and/or use of iterati ve reconstruction technique. FINDINGS: The heart is mildly enlarged. There is no pericardial effusion. Intrathoracic lymph nodes are not enlarged. Thoracic aorta is moderately calcified without aneurysm. The midascending thoracic aorta is borderline in size at 4 cm. There is no pleural effusion, pleural thickening or pneumothorax. Central airways are patent. Lungs a re clear with no consolidation, mass or interstitial lung disease. There is a moderate hiatal hernia. There is levoscoliosis of the lower thoracic spine. There is an old, impacted fracture of the right humeral neck. IMPRESSION: Hiatal hernia. No definite pneumonia. Electronically signed by: Marc Johnson MD 04/13/2019 10:29 PM CDT Due to temporary technical issues with the PACS/Fluency reporting system, reports are being signed by the in house radiologist as a courtesy to ensure prompt reporting. The interpreting radiologist is f ully responsible for the content of the report.
--- NOTE | 2019-04-14 17:18 | ECHO ---
HEIGHT: 5 ft 3 in WEIGHT: 112 lb 2 oz DATE OF STUDY: 04/14/[address]: Austin Finley MD 2-DIMENSIONAL: YES M.MODE: YES DOPPLER: YES COLOR FLOW: YES TDS: YES PORTABLE: DEFINITY: BUBBLE STUDY: DIAGNOSIS: ARRHYTHMIA CARDIAC HISTORY: CATHERIZATION: NO SURGERY: NO PROSTHETIC VALVE: NO PACEMAKER: NO MEASUREMENTS (cm) DIASTOLIC (NORMALS) SYSTOLIC (NORMALS) IVSd 1.3 (0.6-1.2) LA Diam 3.8 (1.9-4.0) LVEF 58% LVIDd 4.0 (3.5-5.7) LVIDs 2.8 (2.0-3.5) %FS 30% LVPWd 1.5 (0.6-1.2) Ao Diam 3.3 (2.0-3.7) 2 DIMENSIONAL ASSESSMENT: RIGHT ATRIUM: NORMAL LEFT ATRIUM: NORMAL RIGHT VENTRICLE: NORMAL LEFT VENTRICLE: NORMAL TRICUSPID VALVE: NORMAL MITRAL VALVE: NORMAL PULMONIC VALVE: NORMAL AORTIC VALVE: SCLEROSIS PERICARDIAL EFFUSION: NONE AORTIC ROOT: NORMAL LEFT VENTRICULAR WALL MOTION: NORMAL DOPPLER/COLOR FLOW: MILD TRICUSPID REGURGITATION. COMMENTS: TECHNICALLY DIFFICULT STUDY. NORMAL LEFT VENTRICULAR EJECTION FRACTION AND SIZE. AORTIC SCLEROSIS. MILD PULMONARY HYPERTENSION. RIGHT VENTRICULAR SYSTOLIC PRESSURE 43 mmHg. TECHNOLOGIST: ROSAMARIA VELÁSQUEZ
--- NOTE | 2019-04-14 18:35 | CON ---
Date of Consultation: 04/14/2019 History Of Present Illness: This is my first time seeing this patient to my knowledge. She is an 79 -year-old female, who apparently was admitted about 1:30 in the morning, this morning, after a fall. Diagnosis included arrhythmia as well as an ulna fracture. I am consulted to see her. On further r eview of her history, she does have a history of low bone density. She ambulates with a cane. She w as apparently trying to wash her foot and fell over backwards in the bathroom injuring her left upper extremity. Physical Examination: She denies any other pain other than the pain in her elbow. She is neurovascularly intact to her katz d. Diagnostic Data: Review of the x-rays demonstrated a comminuted intra-articular fracture of the olec ranon. She is currently in a well-padded posterior splint. Assessment: This is an 79-year-old female with apparently isolated left olecranon fracture. I think that she could be discharged with regard to Orthopedics, and we will have her follow up in my office probably early Wednesday for possible operative intervention. Her diagnosis and treatment plan were d iscussed with her and her family. They state they understand things as presented. /YUMIKO Voice ID: [id number] Report ID: [id number]
[2019-04-14] MEDS ORDERED: ATORVASTATIN 10 MG TAB PO SCH (21:00)
== END 2019-04-14 12:18 | disposition home or self-care (01) ==
LOC: ER 21:16 → INTOOBSV 04-14 01:25 → ERHOLD 04-14 01:25 → 4TH 04-14 02:16
PROVIDERS: ADMIT Hospitalist; ATTEND Family Medicine
DX: I49.8 Other specified cardiac arrhythmias (principal); I44.7 Left bundle-branch block, unspecified; I07.1 Rheumatic tricuspid insufficiency; I27.20 Pulmonary hypertension, unspecified; I70.0 Atherosclerosis of aorta; S52.032A Displaced fracture of olecranon process with intraarticular extension of left ulna, initial encounter for closed fracture; W19.XXXA Unspecified fall, initial encounter; Y92.009 Unspecified place in unspecified non-institutional (private) residence as the place of occurrence of the external cause; I10 Essential (primary) hypertension; J44.9 Chronic obstructive pulmonary disease, unspecified; E78.5 Hyperlipidemia, unspecified; D64.9 Anemia, unspecified; M19.90 Unspecified osteoarthritis, unspecified site; M85.9 Disorder of bone density and structure, unspecified; K44.9 Diaphragmatic hernia without obstruction or gangrene; K21.9 Gastro-esophageal reflux disease without esophagitis; G47.30 Sleep apnea, unspecified; F03.90 Unspecified dementia, unspecified severity, without behavioral disturbance, psychotic disturbance, mood disturbance, and anxiety; F32.9 Major depressive disorder, single episode, unspecified; F17.210 Nicotine dependence, cigarettes, uncomplicated; Z79.82 Long term (current) use of aspirin; Z79.899 Other long term (current) drug therapy
CPT/HCPCS: 93005 ×2; 93306; 87088; 85025; 87086; 80048; 36415; 83735; 84484 ×2; 70450; 71250; 72125; 72170; 73070; 97163; 99285; J1650; 81003; 81015; G0378

== ENCOUNTER 2020-01-06 12:00 | Emergency (ER) | payer OTHER ==
--- OUTSIDE RECORDS SUMMARY | 2020-01-06 12:02 | XMS REPORT ---
:1940 [facility] Address [address] [place] [address] Dr. Fiore [address] [place] [id number] Care Team Providers Name Role Phone Unavailable Unavailable Unavailable Problems This patient has no known problems. Allergies, Adverse Reactions, Alerts This patient has no known allergies or adverse reactions. Medications This patient has no known medications.
[2020-01-06] MEDS ORDERED: HYDROCODONE/APAP 7.5/325 MG TAB ONE (12:57)
--- NOTE | 2020-01-06 13:15 | ER ---
Nurse's Notes [facility] Name: Lila Martin Age: 79 yrs Sex: Female : 1940 Arrival Date: 01/06/2020 Time: 12:02 Bed 4 Private MD: Rolando Calvo T Diagnosis: Displaced fracture of coronoid process of left ulna Presentation: 01/06 12:15 Presenting complaint: Patient states: tripped on walker 2 hours ago. C/o L forearm ss pain. Care prior to arrival: None. Mechanism of Injury: Fall from standing position. Trauma event details: Injury occurred in the [facility], Injury occurred: at home. Injury occurred: January 06, 2020. 12:15 Acuity: BRIDGETT 4 ss 12:15 Method Of Arrival: Ambulatory ss 12:17 Transition of care: patient was not received from another setting of care. Onset of ss symptoms was January 06, 2020. Risk Assessment: Do you want to hurt yourself or someone else? Patient reports no desire to harm self or others. Initial Sepsis Screen: Does the patient meet any 2 criteria? No. Patient's initial sepsis screen is negative. Does the patient have a suspected source of infection? No. Patient's initial sepsis screen is negative. Historical: - Allergies: 12:18 Codeine; ss 12:18 GUAIFENESIN; ss - PMHx: 12:18 Anemia; COPD; Depression; GERD; GI Bleed; High Cholesterol; Hyperlipidemia; ss Hypertension; osteoarthritis; Sleep Apnea; - PSHx: 12:18 L hip surgery; L forearm; ss - Immunization history:: Adult Immunizations up to date. - Coronavirus screen:: The patient has NOT traveled to [place] in the past 14 days. Proceed with normal triage process as indicated. - Social history:: Smoking status: Patient denies any tobacco usage or history of. - Family history:: not pertinent. - Ebola Screening: : Patient denies exposure to infectious person Patient denies travel to an Ebola-affected area in the 21 days before illness onset. Screenin:15 Abuse screen: Denies threats or abuse. Denies injuries from another. Tuberculosis ss screening: Never had TB. 12:50 Nutritional screening: No deficits noted. Fall Risk None identified. jl7 Assessment: 12:50 General: Appears in no apparent distress. uncomfortable, Behavior is calm, cooperative, jl7 appropriate for age. Pain: Complains of pain in left arm. Neuro: Level of Consciousness is awake, alert, obeys commands, Oriented to person, place, time, situation. Cardiovascular: Patient's skin is warm and dry. Respiratory: Airway is patent Respiratory effort is even, unlabored, Respiratory pattern is regular, symmetrical. Derm: Skin is pink, warm \T\ dry. Musculoskeletal: Swelling present in left arm. Vital Signs: 12:15 BP 203 / 113; Pulse 82; Resp 17; Temp 97.2(TE); Pulse Ox 95% on R/A; Weight 53.07 kg; ss Height 5 ft. 5 in. (165.10 cm); Pain 9/10; 12:58 BP 176 / 98; Pulse 68; Resp 18; Pulse Ox 95% on R/A; Pain 9/10; em 12:15 Body Mass Index 19.47 (53.07 kg, 165.10 cm) ss Kyle Coma Score: 12:15 Eye Response: spontaneous(4). Verbal Response: oriented(5). Motor Response: obeys ss commands(6). Total: 15. Trauma Score (Adult): 12:15 Eye Response: spontaneous(1); Verbal Response: oriented(1); Motor Response: obeys ss commands(2); Systolic BP: > 89 mm Hg(4); Respiratory Rate: 10 to 29 per min(4); [place] Score: 15; Trauma Score: 12 ED Course: 12:02 Patient arrived in ED. mr 12:02 Rolando Calvo MD is Private Physician. mr 12:07 Robert Iniguez MD is Attending Physician. gilma 12:15 Patient has correct armband on for positive identification. Bed in low position. Call ss light in reach. Side rails up X 1. 12:15 Patient maintains SpO2 saturation greater than 95% on room air. ss 12:16 Triage completed. ss 12:18 Arm band placed on right wrist. ss 12:22 Lauro Sarmiento, DANIKA is Primary Nurse. jl7 13:03 Rolando Calvo MD is Referral Physician. gilma 13:03 Trey Garcia MD is Referral Physician. gilma 13:15 Orthoglass splint: posterior long arm splint applied to the left arm. Sling applied to jl7 left arm. 13:25 No provider procedures requiring assistance completed. Patient did not have IV access jl7 during this emergency room visit. Administered Medications: 12:56 Drug: [place] (7.5 mg-325 mg) 1 tabs Route: PO; em 13:30 Follow up: Response: No adverse reaction; Pain is unchanged, physician notified jl7 Outcome: 13:04 Discharge ordered by . gilma 13:25 Discharged to home ambulatory, with family. neal 13:25 Condition: stable 13:25 Discharge instructions given to patient, family, Instructed on discharge instructions, follow up and referral plans. medication usage, Demonstrated understanding of instructions, follow-up care, medications, Prescriptions given X 1. 13:31 Patient left the ED. jl7 Signatures: Robert Iniguez MD MD cha Rivera, Mary mr Munoz, Edgar, Yoly Steve RN, Lauro Teague RN, RN RN jl7
--- NOTE | 2020-01-06 13:16 | EDPHYS ---
Physician Documentation [facility] Name: Lila Martin Age: 79 yrs Sex: Female : 1940 Arrival Date: 01/06/2020 Time: 12:02 Bed 4 Private MD: Rolando Calvo T ED Physician Robert Iniguez HPI: 01/06 12:26 This 79 yrs old Female presents to ER via Ambulatory with complaints of Fall gilma Injury, Arm Injury. 12:26 Details of fall: The patient fell from an upright position, while walking. Onset: The gilma symptoms/episode began/occurred just prior to arrival. Associated injuries: The patient sustained left antecubital area and left elbow, decreased range of motion, painful injury, swelling. Severity of symptoms: At their worst the symptoms were mild, moderate, in the emergency department the symptoms are unchanged. The patient has experienced a previous episode, many years ago. Historical: - Allergies: 12:18 Codeine; ss 12:18 GUAIFENESIN; ss - PMHx: 12:18 Anemia; COPD; Depression; GERD; GI Bleed; High Cholesterol; Hyperlipidemia; ss Hypertension; osteoarthritis; Sleep Apnea; - PSHx: 12:18 L hip surgery; L forearm; ss - Immunization history:: Adult Immunizations up to date. - Coronavirus screen:: The patient has NOT traveled to [place] in the past 14 days. Proceed with normal triage process as indicated. - Social history:: Smoking status: Patient denies any tobacco usage or history of. - Family history:: not pertinent. - Ebola Screening: : Patient denies exposure to infectious person Patient denies travel to an Ebola-affected area in the 21 days before illness onset. ROS: 12:26 Constitutional: Negative for fever, chills, and weight loss, Eyes: Negative for injury, gilma pain, redness, and discharge, ENT: Negative for injury, pain, and discharge, Neck: Negative for injury, pain, and swelling, Cardiovascular: Negative for chest pain, palpitations, and edema, Respiratory: Negative for shortness of breath, cough, wheezing, and pleuritic chest pain, Abdomen/GI: Negative for abdominal pain, nausea, vomiting, diarrhea, and constipation, Back: Negative for injury and pain, : Negative for injury, bleeding, discharge, and swelling, Skin: Negative for injury, rash, and discoloration, Neuro: Negative for headache, weakness, numbness, tingling, and seizure, Psych: Negative for depression, anxiety, suicide ideation, homicidal ideation, and hallucinations, Allergy/Immunology: Negative for hives, rash, and allergies, Endocrine: Negative for neck swelling, polydipsia, polyuria, polyphagia, and marked weight changes, Hematologic/Lymphatic: Negative for swollen nodes, abnormal bleeding, and unusual bruising. 12:26 MS/extremity: Positive for injury or acute deformity, decreased range of motion, of the left elbow. Exam: 12:26 Constitutional: This is a well developed, well nourished patient who is awake, alert, gilma and in no acute distress. Head/Face: Normocephalic, atraumatic. Eyes: Pupils equal round and reactive to light, extra-ocular motions intact. Lids and lashes normal. Conjunctiva and sclera are non-icteric and not injected. Cornea within normal limits. Periorbital areas with no swelling, redness, or edema. ENT: Nares patent. No nasal discharge, no septal abnormalities noted. Tympanic membranes are normal and external auditory canals are clear. Oropharynx with no redness, swelling, or masses, exudates, or evidence of obstruction, uvula midline. Mucous membranes moist. Neck: Trachea midline, no thyromegaly or masses palpated, and no cervical lymphadenopathy. Supple, full range of motion without nuchal rigidity, or vertebral point tenderness. No Meningismus. Chest/axilla: Normal chest wall appearance and motion. Nontender with no deformity. No lesions are appreciated. Cardiovascular: Regular rate and rhythm with a normal S1 and S2. No gallops, murmurs, or rubs. Normal PMI, no JVD. No pulse deficits. Respiratory: Lungs have equal breath sounds bilaterally, clear to auscultation and percussion. No rales, rhonchi or wheezes noted. No increased work of breathing, no retractions or nasal flaring. Abdomen/GI: Soft, non-tender, with normal bowel sounds. No distension or tympany. No guarding or rebound. No evidence of tenderness throughout. Back: No spinal tenderness. No costovertebral tenderness. Full range of motion. Female : Normal external genitalia. Skin: Warm, dry with normal turgor. Normal color with no rashes, no lesions, and no evidence of cellulitis. Neuro: Awake and alert, GCS 15, oriented to person, place, time, and situation. Cranial nerves II-XII grossly intact. Motor strength 5/5 in all extremities. Sensory grossly intact. Cerebellar exam normal. Normal gait. Psych: Awake, alert, with orientation to person, place and time. Behavior, mood, and affect are within normal limits. 12:26 Musculoskeletal/extremity: ROM: limited active range of motion due to pain, limited passive range of motion due to pain, Circulation is intact in all extremities. Sensation intact. Compartment Syndrome exam of affected extremity: is normal. Joints: All joints are normal except tenderness, DVT Exam: No signs of deep vein thrombosis. no pain, no swelling, no tenderness, negative Homans' sign noted on exam, no appreciated bluish discoloration, no erythema, no increased warmth. Vital Signs: 12:15 BP 203 / 113; Pulse 82; Resp 17; Temp 97.2(TE); Pulse Ox 95% on R/A; Weight 53.07 kg; ss Height 5 ft. 5 in. (165.10 cm); Pain 9/10; 12:58 BP 176 / 98; Pulse 68; Resp 18; Pulse Ox 95% on R/A; Pain 9/10; em 12:15 Body Mass Index 19.47 (53.07 kg, 165.10 cm) ss Kyle Coma Score: 12:15 Eye Response: spontaneous(4). Verbal Response: oriented(5). Motor Response: obeys ss commands(6). Total: 15. Trauma Score (Adult): 12:15 Eye Response: spontaneous(1); Verbal Response: oriented(1); Motor Response: obeys ss commands(2); Systolic BP: > 89 mm Hg(4); Respiratory Rate: 10 to 29 per min(4); [place] Score: 15; Trauma Score: 12 MDM: 12:07 Patient medically screened. [facility] 12:28 Data reviewed: vital signs, nurses notes, radiologic studies. [facility] 01/06 12:26 Order name: Elbow Left 3 View XRAY [facility] 01/06 12:26 Order name: Chest Single View XRAY [facility] 01/06 12:26 Order name: Ice pack; Complete Time: 13:30 [facility] 01/06 13:01 Order name: Splint - Elbow - Posterior; Complete Time: 13:30 [facility] 01/06 13:01 Order name: Stas; Complete Time: 13:30 [facility] Administered Medications: 12:56 Drug: [place] (7.5 mg-325 mg) 1 tabs Route: PO; em 13:30 Follow up: Response: No adverse reaction; Pain is unchanged, physician notified jl7 Disposition: 01/06/20 13:04 Discharged to Home. Impression: Displaced fracture of coronoid process of left ulna. - Condition is Stable. - Prescriptions for Tramadol 50 mg Oral Tablet - take 1 tablet by ORAL route every 8 hours as needed; 26 tablet. - Medication Reconciliation Form, Thank You Letter, Antibiotic Education, Prescription Opioid Use form. - Follow up: Rolando Calvo MD; When: 5 - 6 days; Reason: Recheck today's complaints, Continuance of care, Re-evaluation by your physician. Follow up: Trey Garcia MD; When: 1 - 2 days; Reason: Recheck today's complaints, Continuance of care, Re-evaluation by your physician. - Problem is new. - Symptoms have improved. Signatures: Dispatcher [employer] Robert Aguilar MD MD cha Munoz, Edgar, RN RN em Yoly Russo RN RN Lauro Sarmiento RN RN jl7 Corrections: (The following items were deleted from the chart) 13:31 13:04 01/06/2020 13:04 Discharged to Home. Impression: Displaced fracture of coronoid jl7 process of left ulna. Condition is Stable. Forms are Medication Reconciliation Form, Thank You Letter, Antibiotic Education, Prescription Opioid Use. Follow up: Rolando Calvo; When: 5 - 6 days; Reason: Recheck today's complaints, Continuance of care, Re-evaluation by your physician. Follow up: Trey Garcia; When: 1 - 2 days; Reason: Recheck today's complaints, Continuance of care, Re-evaluation by your physician. Problem is new. Symptoms have improved. [facility]
--- NOTE | 2020-01-06 13:46 | RAD REPORT ---
EXAM DESCRIPTION: RAD - Elbow Left 3 View - 01/06/2020 12:42 pm CLINICAL HISTORY: Trip and fall, elbow pain COMPARISON: Left elbow pre-surgical images March 2019 FINDINGS: Transverse fracture of the proximal shaft of the ulna present. The fracture plane is in pr oximity to the two distal bone screws of the fracture fixation plate. The hardware has not fractured. No pathologic component. A distal humerus fracture is not confirmed. There are multiple skin fold ar tifacts creating lucencies over the distal humerus. No gross proximal radius fracture deformity seen. There are degenerative spurs along the radial head that could potentially mask a small transverse ra dial head fracture. No involvement of the articular surface of the radius suspected. There is no dislocation or periosteal reaction noted. No elevated posterior fat pad. No foreign bod y. IMPRESSION: Fracture of the proximal shaft ulna at the distal aspect of the old fracture fixation huggins rdware. The plate and bone screws are intact. No distal humerus fracture confirmed. No radial head fracture confirmed. The marginal spurring at the radial head could potentially mask a minimal fracture. This would not likely alter medical management.
--- NOTE | 2020-01-06 13:47 | RAD REPORT ---
EXAM DESCRIPTION: RAD - Chest Single View - 01/06/2020 12:42 pm CLINICAL HISTORY: PAINtrip and fall, arm pain COMPARISON: Chest Single View dated 12/24/2016; Thorax Wo Con dated 04/13/2019 TECHNIQUE: AP portable chest image was obtained 01/06/2020 12:42 pm . FINDINGS: No pulmonary contusion or acute lung parenchymal process. Fibrotic lung pattern matches co mparison. Moderate-size hiatal hernia is present in the low midline chest. Prominent degenerative and scoliotic changes are present in the thoracic spine. Heart and vasculature are normal. No measurable pleural effusion and no pneumothorax. No acute aorti c finding. Bones are osteopenic. An acute bone process is not seen. Proximal humerus and right shoulder assessme nt is limited. IMPRESSION: As detailed above, no acute cardiopulmonary finding or acute chest finding seen.
[2020-01-06 14:00] VITALS: TEMP 97.2; O2SAT 95
[2020-01-06 14:02] VITALS: BP 176/98
== END 2020-01-06 13:31 | disposition home or self-care (01) ==
LOC: ER 12:00
PROC: 2W39X1Z Immobilization of Left Upper Extremity using Splint (ICD-10-PCS; principal; 2020-01-06)
DX: S52.042A Displaced fracture of coronoid process of left ulna, initial encounter for closed fracture (principal); W01.0XXA Fall on same level from slipping, tripping and stumbling without subsequent striking against object, initial encounter; Y93.9 Activity, unspecified; Y92.9 Unspecified place or not applicable; Z88.6 Allergy status to analgesic agent
CPT/HCPCS: 71045; 99284

== ENCOUNTER 2020-04-27 01:52 | Observation (INO) | payer OTHER ==
--- OUTSIDE RECORDS SUMMARY | 2020-04-27 01:54 | XMS REPORT | Continuity of Care Document ---
:1940 Author Organization [facility] t Address [address] [place] [address] Care Team Providers Name Role Phone Javon Garcia MD Attending Clinician Doctor Unassigned, Name Attending Clinician Unavailable José, Ladan Main Attending Clinician Unavailable Javon Garcia MD Admitting Clinician Problems This patient has no known problems. Allergies, Adverse Reactions, Alerts This patient has no known allergies or adverse reactions. Medications This patient has no known medications. Procedures This patient has no known procedures. Encounters Start End Encounter Admission Attending Care Care Encounter Source Date/Time Date/Time Type Type Clinicians Facility Department ID 2020-01-10 2020-01-10 Merged with [facility] [id number] 09:06:00 13:50:00 Encounter Trey Machado [id number] Deb [id number] Surgical [id number] [place] 071 2020-01-10 2020-01-10 Orders Doctor LETHA [id number] 00:00:00 00:00:00 Only Unassigned, TIGRE [id number] [place] [facility] [id number] 2020-01-09 2020-01-09 [employer] Pasting Supervisor Sumeet Kumar [facility] [id number] 10:21:59 10:36:59 Visit Lab Aj Machado [id number] [place] [id number] Professio [id number] [facility] [address] Results This patient has no known results.
[2020-04-27] MEDS ORDERED: TRAMADOL HCL 50 MG TAB ONE (02:17)
[2020-04-27 03:56] LABS: Urine Blood NEGATIVE (NEG); Urine Glucose NEGATIVE (NEG); Urine Protein NEGATIVE (NEG); Urine Specific Gravity 1.015 (1.005-1.030); Urine pH 6.5 (5.0-7.0)
[2020-04-27 06:17] LABS: Absolute Lymphocytes (CBC) 1.5 K/uL (0.7-4.9); Basophils % 0.7 % (0-1.3); Hematocrit 26.6 % (36.0-45.0); Lymphocytes % 11.6 % (15.3-44.8); MPV 9.2 fL (7.6-11.3); RBC Red Blood Cell Count 3.01 M/uL (3.86-4.86)
--- NOTE | 2020-04-27 06:18 | EDPHYS ---
Physician Documentation [facility] Name: Lila Martin Age: 80 yrs Sex: Female : 1940 Arrival Date: 04/27/2020 Time: 01:54 Bed 6 Private MD: ED Physician Mychal Bashir HPI: 04/27 03:31 This 80 yrs old Female presents to ER via EMS with complaints of Fall Injury. pkl 03:31 Details of fall: The patient fell from an upright position, while standing. Onset: The pkl symptoms/episode began/occurred just prior to arrival. Associated injuries: The patient sustained injury to the head, contusion, left groin, contusion, painful injury. Historical: - Allergies: 01:55 Codeine; rr5 01:55 GUAIFENESIN; rr5 - Home Meds: 01:55 -81 81 mg Oral TbEC 1 tab once daily [Active]; citalopram 20 mg tab 1 tab once rr5 daily [Active]; lisinopril 5 mg Oral tab 1 tab twice a day [Active]; pravastatin 40 mg Oral tab 1 tab nightly [Active]; Singulair 10 mg Oral tab 1 tab once daily [Active]; Zantac 150 mg Oral tab 1 tab once daily [Active]; - PMHx: 01:55 Anemia; COPD; Depression; GERD; GI Bleed; High Cholesterol; Hyperlipidemia; rr5 Hypertension; osteoarthritis; Sleep Apnea; - Immunization history:: Adult Immunizations up to date. - Social history:: Smoking status: Patient reports the use of cigarette tobacco products, smokes one pack cigarettes per day. Patient/guardian denies using alcohol, street drugs. - Immunization history: Last tetanus immunization: unknown. ROS: 03:31 Eyes: Negative for injury, pain, redness, and discharge, ENT: Negative for injury, pkl pain, and discharge, Neck: Negative for injury, pain, and swelling, Cardiovascular: Negative for chest pain, palpitations, and edema, Respiratory: Negative for shortness of breath, cough, wheezing, and pleuritic chest pain. 03:31 Abdomen/GI: Positive for pain left groin. 03:31 Back: Negative for acute changes. 03:31 : Negative for urinary symptoms. 03:31 MS/extremity: Negative for acute changes. 03:31 Skin: Negative for rash. 03:31 Neuro: Negative for altered mental status, loss of consciousness. Exam: 03:35 Head/Face: Normocephalic, atraumatic. Eyes: Pupils equal round and reactive to light, pkl extra-ocular motions intact. Lids and lashes normal. Conjunctiva and sclera are non-icteric and not injected. Cornea within normal limits. Periorbital areas with no swelling, redness, or edema. ENT: Nares patent. No nasal discharge, no septal abnormalities noted. Tympanic membranes are normal and external auditory canals are clear. Oropharynx with no redness, swelling, or masses, exudates, or evidence of obstruction, uvula midline. Mucous membranes moist. Neck: Trachea midline, no thyromegaly or masses palpated, and no cervical lymphadenopathy. Supple, full range of motion without nuchal rigidity, or vertebral point tenderness. No Meningismus. Chest/axilla: Normal chest wall appearance and motion. Nontender with no deformity. No lesions are appreciated. Cardiovascular: Regular rate and rhythm with a normal S1 and S2. No gallops, murmurs, or rubs. Normal PMI, no JVD. No pulse deficits. Respiratory: Lungs have equal breath sounds bilaterally, clear to auscultation and percussion. No rales, rhonchi or wheezes noted. No increased work of breathing, no retractions or nasal flaring. 03:35 Abdomen/GI: Bowel sounds: normal, Palpation: abdomen is soft and non-tender, in the tender left groin. 03:35 Back: Exam negative for acute changes. 03:35 : Exam negative for acute changes. 03:35 Musculoskeletal/extremity: Exam is negative for acute changes. 03:35 Skin: Exam negative for rash. 03:35 Neuro: Orientation: is normal, Mentation: is normal, Cranial nerves: grossly normal, Motor: is normal. Vital Signs: 01:55 BP 186 / 85; Pulse 75; Resp 23; Temp 98.4; Pulse Ox 96% ; Weight 55.79 kg; Height 5 ft. rr5 4 in. (162.56 cm); Pain 5/10; 02:12 BP 132 / 92; Pulse 79; Resp 24; Pulse Ox 94% on R/A; rr5 02:59 BP 126 / 70; Pulse 68; Resp 18; Pulse Ox 96% on R/A; mg2 04:00 BP 130 / 77; Pulse 73; Resp 19; Pulse Ox 95% ; rr5 05:00 BP 115 / 70; Pulse 79; Resp 20; Pulse Ox 94% ; rr5 06:00 BP 110 / 69; Pulse 65; Resp 16; Pulse Ox 94% ; rr5 08:17 BP 108 / 72; Pulse 67; Resp 18; Pulse Ox 98% on R/A; ph 10:46 BP 159 / 77; Pulse 77; Resp 18; Temp 97.9; Pulse Ox 96% on R/A; ph 01:55 Body Mass Index 21.11 (55.79 kg, 162.56 cm) rr5 [place] Coma Score: 02:00 Eye Response: spontaneous(4). Verbal Response: oriented(5). Motor Response: obeys rr5 commands(6). Total: 15. 05:00 Eye Response: spontaneous(4). Verbal Response: oriented(5). Motor Response: obeys rr5 commands(6). Total: 15. 06:00 Eye Response: spontaneous(4). Verbal Response: oriented(5). Motor Response: obeys rr5 commands(6). Total: 15. 08:17 Eye Response: spontaneous(4). Verbal Response: oriented(5). Motor Response: obeys ph commands(6). Total: 15. 10:46 Eye Response: spontaneous(4). Verbal Response: oriented(5). Motor Response: obeys ph commands(6). Total: 15. Trauma Score (Adult): 02:00 Eye Response: spontaneous(1); Verbal Response: oriented(1); Motor Response: obeys rr5 commands(2); Systolic BP: > 89 mm Hg(4); Respiratory Rate: 10 to 29 per min(4); [place] Score: 15; Trauma Score: 12 04:00 Eye Response: spontaneous(1); Verbal Response: oriented(1); Motor Response: obeys rr5 commands(2); Systolic BP: > 89 mm Hg(4); Respiratory Rate: 10 to 29 per min(4); [place] Score: 15; Trauma Score: 12 05:00 Eye Response: spontaneous(1); Verbal Response: oriented(1); Motor Response: obeys rr5 commands(2); Systolic BP: > 89 mm Hg(4); Respiratory Rate: 10 to 29 per min(4); [place] Score: 15; Trauma Score: 12 06:00 Eye Response: spontaneous(1); Verbal Response: oriented(1); Motor Response: obeys rr5 commands(2); Systolic BP: > 89 mm Hg(4); Respiratory Rate: 10 to 29 per min(4); [place] Score: 15; Trauma Score: 12 08:17 Eye Response: spontaneous(1); Verbal Response: oriented(1); Motor Response: obeys ph commands(2); Systolic BP: > 89 mm Hg(4); Respiratory Rate: 10 to 29 per min(4); Kyle Score: 15; Trauma Score: 12 10:46 Eye Response: spontaneous(1); Verbal Response: oriented(1); Motor Response: obeys ph commands(2); Systolic BP: > 89 mm Hg(4); Respiratory Rate: 10 to 29 per min(4); [place] Score: 15; Trauma Score: 12 MDM: 02:00 Patient medically screened. pk 06:11 Data reviewed: vital signs, nurses notes, lab test result(s), EKG, radiologic studies, pkl CT scan, plain films. 04/27 03:46 Order name: Urine Dipstick--Ancillary (enter results); Complete Time: 05:46 tt3 04/27 05:48 Order name: Basic Metabolic Panel; Complete Time: 07:21 pkl 04/27 05:48 Order name: CBC with Diff; Complete Time: 07:21 pkl 04/27 05:48 Order name: LFT's; Complete Time: 07:21 pkl 04/27 05:48 Order name: Magnesium; Complete Time: 07:21 pkl 04/27 05:48 Order name: NT PRO-BNP; Complete Time: 07:21 pkl 04/27 02:05 Order name: Hip Left 2 View XRAY pkl 04/27 02:07 Order name: CT Head Brain wo Cont pkl 04/27 03:37 Order name: CT Pelvis wo Cont pkl 04/27 05:48 Order name: PT-INR; Complete Time: 07:21 pkl 04/27 05:48 Order name: Troponin (emerg Dept Use Only); Complete Time: 07:21 pkl 04/27 06:30 Order name: Urine Dipstick--Ancillary (enter results) tt3 04/27 06:31 Order name: Urine Dipstick-Ancillary; Complete Time: 07:21 EDMS 04/27 07:11 Order name: Comprehensive Metabolic Panel EDCA 04/27 03:45 Order name: Straight Cath - Urine; Complete Time: 03:45 rr5 04/27 05:48 Order name: XRAY Chest (1 view) pkl 04/27 05:48 Order name: EKG; Complete Time: 05:49 pkl 04/27 05:48 Order name: Cardiac monitoring; Complete Time: 06:07 pkl 04/27 05:48 Order name: EKG - Nurse/Tech; Complete Time: 06:19 pkl 04/27 05:48 Order name: IV Saline Lock; Complete Time: 06:19 pkl 04/27 05:48 Order name: Labs collected and sent; Complete Time: 06:19 pkl 04/27 05:48 Order name: O2 Per Protocol; Complete Time: 06:20 pkl 04/27 05:52 Order name: Femur Left XRAY pk 04/27 07:11 Order name: CONS Physician Consult EDCA 04/27 07:12 Order name: Physical Therapy Consult EDCA 04/27 07:12 Order name: NPO EDCA 04/27 08:48 Order name: RAD EDCA 04/27 08:50 Order name: RAD EDCA 04/27 05:48 Order name: O2 Sat Monitoring; Complete Time: 06:20 pkl 04/27 06:59 Order name: Carcamo; Complete Time: 06:59 rr5 Administered Medications: 02:11 Drug: UltRAM 50 mg {Note: rass 0.} Route: PO; rr5 03:15 Follow up: Response: No adverse reaction; RASS: Alert and Calm (0) rr5 06:19 Drug: NS 0.9% 1000 ml Route: IV; Rate: 125 ml/hr; Site: right antecubital; mg2 11:12 Follow up: IV Status: Infusion continued upon admission em Disposition: 04/27/20 06:18 Hospitalization ordered by Austin Finley for Inpatient Admission. Preliminary diagnosis is Fractures left superior and inferior pubic rami. Fracture greater tuberosity left femur. - Bed requested for Telemetry/MedSurg (Inpatient). - Status is Inpatient Admission. ph - Condition is Stable. - Problem is new. - Symptoms have improved. Signatures: Dispatcher [employer] Mychal Benitez MD MD pkl Cecy Keen RN RN Daja Hall Michele, RN RN [facility] Sathish Sullivan RN RN rr5 Chris Balbuena RN em Corrections: (The following items were deleted from the chart) 10:43 06:18 Hospitalization Ordered by Austin Finley MD for Inpatient Admission. Preliminary eb diagnosis is Fractures left superior and inferior pubic rami. Fracture greater tuberosity left femur. Bed requested for Telemetry/MedSurg (Inpatient). Status is Inpatient Admission. Condition is Stable. Problem is new. Symptoms have improved. pk 11:39 10:43 04/27/2020 06:18 Hospitalization Ordered by Austin Finley MD for Inpatient Admission. Preliminary diagnosis is Fractures left superior and inferior pubic rami. Fracture greater tuberosity left femur. Bed requested for Telemetry/MedSurg (Inpatient). Status is Inpatient Admission. Condition is Stable. Problem is new. Symptoms have improved. eb
--- NOTE | 2020-04-27 06:18 | ER ---
Nurse's Notes [facility] Name: Lila Martin Age: 80 yrs Sex: Female : 1940 Arrival Date: 04/27/2020 Time: 01:54 Bed 6 Private MD: Diagnosis: Fractures left superior and inferior pubic rami. Fracture greater tuberosity left femur Presentation: 04/27 01:55 Chief complaint: EMS states: patient fell down while on the way to her bathroom. rr5 complaining of left groin pain radiating to left hip and back. seen a flash white light hit her back of the head. denies Loss of consciousness. 01:55 Coronavirus screen: Proceed with normal triage. Ebola Screen: Patient negative for rr5 fever greater than or equal to 101.5 degrees Fahrenheit, and additional compatible Ebola Virus Disease symptoms Patient denies exposure to infectious person. Patient denies travel to an Ebola-affected area in the 21 days before illness onset. Initial Sepsis Screen: Does the patient meet any 2 criteria? No. Patient's initial sepsis screen is negative. Does the patient have a suspected source of infection? No. Patient's initial sepsis screen is negative. Risk Assessment: Do you want to hurt yourself or someone else? Patient reports no desire to harm self or others. Onset of symptoms was April 27, 2020. 01:55 Method Of Arrival: EMS: [facility] rr5 01:55 Acuity: BRIDGETT 2 rr5 01:58 Care prior to arrival: None. Mechanism of Injury: Fall from standing position. Trauma rr5 event details: Injury occurred in the [facility], Injury occurred: at home. Injury occurred: April 27, 2020. Trauma Activation: Alert Physician: ED Physician; Name: dr frazier; Notified At: 01:58; Arrived At: 01:59 Physician: General Surgeon; Name: ; Notified At: 01:58; Arrived At: Physician: Radiology; Name: luis enrique; Notified At: 01:58; Arrived At: 01:59 Physician: Respiratory; Name: ; Notified At: 01:58; Arrived At: Physician: Lab; Name: ; Notified At: 01:58; Arrived At: Historical: - Allergies: 01:55 Codeine; rr5 01:55 GUAIFENESIN; rr5 - Home Meds: 01:55 Aspir-81 81 mg Oral TbEC 1 tab once daily [Active]; citalopram 20 mg tab 1 tab once rr5 daily [Active]; lisinopril 5 mg Oral tab 1 tab twice a day [Active]; pravastatin 40 mg Oral tab 1 tab nightly [Active]; Singulair 10 mg Oral tab 1 tab once daily [Active]; Zantac 150 mg Oral tab 1 tab once daily [Active]; - PMHx: 01:55 Anemia; COPD; Depression; GERD; GI Bleed; High Cholesterol; Hyperlipidemia; rr5 Hypertension; osteoarthritis; Sleep Apnea; - Immunization history:: Adult Immunizations up to date. - Social history:: Smoking status: Patient reports the use of cigarette tobacco products, smokes one pack cigarettes per day. Patient/guardian denies using alcohol, street drugs. - Immunization history: Last tetanus immunization: unknown. Screenin:02 Abuse screen: Denies threats or abuse. Denies injuries from another. Nutritional rr5 screening: No deficits noted. Tuberculosis screening: No symptoms or risk factors identified. Fall risk At risk due to injury, age, Intervention for positive screen: ED Physician notified, instructed to call for assist when getting up, side rails up. Exposure risk/Travel Screening: None identified. 02:59 Fall Risk Fall in past 12 months (25 points). Gait- Weak (10 pts.). mg2 Primary Survey: 02:00 NO uncontrolled hemorrhage observed. A: The patient is alert. Airway: patent, Oral rr5 cavity: clear, gag reflex present, Trachea midline. Breathing/Chest: Respiratory pattern: regular, Respiratory effort: spontaneous, unlabored, Breath sounds: clear, bilaterally. Chest inspection: symmetrical rise and fall of the chest. Circulation: Pulses: palpable right radial artery, right dorsalis pedis artery, left radial artery and left dorsalis pedis artery. Skin color: pink, Skin temperature: warm, dry. Disability Alert. Exposure/Environment: There is no evidence of uncontrolled external bleeding. A warming method has been applied: A warm blanket has been provided to the patient. 02:59 Reassessment Airway Airway Patent Breathing/Chest Respiratory pattern Regular mg2 Respiratory effort Spontaneous Unlabored Circulation Color [place] Disability Alert. Secondary Survey: 02:02 HEENT: Head Other complaining of pain back of the head. Gastrointestinal: Abdomen is rr5 flat. : No signs and/or symptoms were reported regarding the genitourinary system. Musculoskeletal: Capillary refill < 3 seconds, Reports pain in groin and left leg. Assessment: 02:00 General: Appears in no apparent distress. uncomfortable, Behavior is calm, cooperative, rr5 appropriate for age. 02:00 Pain: Complains of pain in groin Pain radiates to back and left leg Pain currently is 5 rr5 out of 10 on a pain scale. Quality of pain is described as aching, Pain began suddenly, Is intermittent. Neuro: Level of Consciousness is awake, alert, obeys commands, Oriented to person, place, time, situation, Reports dizziness. EENT: No signs and/or symptoms were reported regarding the EENT system. Cardiovascular: Capillary refill < 3 seconds Patient's skin is warm and dry. Respiratory: Airway is patent Respiratory effort is even, unlabored, Respiratory pattern is regular, symmetrical. GI: No signs and/or symptoms were reported involving the gastrointestinal system. : No signs and/or symptoms were reported regarding the genitourinary system. Derm: Skin is fragile, is thin, Skin temperature is warm. Musculoskeletal: Circulation, motion, and sensation intact. Capillary refill < 3 seconds, Reports pain in pelvis and left leg. 02:58 Reassessment: patient back from CT scan. mg2 03:46 Reassessment: Patient appears in no apparent distress at this time. Patient is alert, rr5 oriented x 3, equal unlabored respirations, skin warm/dry/pink. reassess by ED provider with order made and carried out. spoke to family member and updated for the plan of care. Patient states symptoms have improved. 05:10 Reassessment: Patient appears in no apparent distress at this time. Patient is alert, rr5 oriented x 3, equal unlabored respirations, skin warm/dry/pink. resting eyes closed breathing spontaneously at room air. awaiting for CT result. 06:00 Reassessment: Patient appears in no apparent distress at this time. Patient is alert, rr5 oriented x 3, equal unlabored respirations, skin warm/dry/pink. reassess by ED provider advised for admission and agreed for the plan of care. 06:14 Reassessment: hospitalist at bedside assessing the patient. rr5 06:33 Reassessment: Mr. John Martin, son was informed about the plan for the patient. mg2 08:17 Reassessment: Patient appears in no apparent distress at this time. Patient and/or ph family updated on plan of care and expected duration. Pain level reassessed. Patient is alert, oriented x 3, equal unlabored respirations, skin warm/dry/pink. Pt resting quietly, awaiting room assignment, VSS. 09:45 Reassessment: Patient appears in no apparent distress at this time. Patient and/or em family updated on plan of care and expected duration. Pain level reassessed. Patient is alert, oriented x 3, equal unlabored respirations, skin warm/dry/pink. Vital Signs: 01:55 BP 186 / 85; Pulse 75; Resp 23; Temp 98.4; Pulse Ox 96% ; Weight 55.79 kg; Height 5 ft. rr5 4 in. (162.56 cm); Pain 5/10; 02:12 BP 132 / 92; Pulse 79; Resp 24; Pulse Ox 94% on R/A; rr5 02:59 BP 126 / 70; Pulse 68; Resp 18; Pulse Ox 96% on R/A; mg2 04:00 BP 130 / 77; Pulse 73; Resp 19; Pulse Ox 95% ; rr5 05:00 BP 115 / 70; Pulse 79; Resp 20; Pulse Ox 94% ; rr5 06:00 BP 110 / 69; Pulse 65; Resp 16; Pulse Ox 94% ; rr5 08:17 BP 108 / 72; Pulse 67; Resp 18; Pulse Ox 98% on R/A; ph 10:46 BP 159 / 77; Pulse 77; Resp 18; Temp 97.9; Pulse Ox 96% on R/A; ph 01:55 Body Mass Index 21.11 (55.79 kg, 162.56 cm) rr5 [place] Coma Score: 02:00 Eye Response: spontaneous(4). Verbal Response: oriented(5). Motor Response: obeys rr5 commands(6). Total: 15. 05:00 Eye Response: spontaneous(4). Verbal Response: oriented(5). Motor Response: obeys rr5 commands(6). Total: 15. 06:00 Eye Response: spontaneous(4). Verbal Response: oriented(5). Motor Response: obeys rr5 commands(6). Total: 15. 08:17 Eye Response: spontaneous(4). Verbal Response: oriented(5). Motor Response: obeys ph commands(6). Total: 15. 10:46 Eye Response: spontaneous(4). Verbal Response: oriented(5). Motor Response: obeys ph commands(6). Total: 15. Trauma Score (Adult): 02:00 Eye Response: spontaneous(1); Verbal Response: oriented(1); Motor Response: obeys rr5 commands(2); Systolic BP: > 89 mm Hg(4); Respiratory Rate: 10 to 29 per min(4); [place] Score: 15; Trauma Score: 12 04:00 Eye Response: spontaneous(1); Verbal Response: oriented(1); Motor Response: obeys rr5 commands(2); Systolic BP: > 89 mm Hg(4); Respiratory Rate: 10 to 29 per min(4); [place] Score: 15; Trauma Score: 12 05:00 Eye Response: spontaneous(1); Verbal Response: oriented(1); Motor Response: obeys rr5 commands(2); Systolic BP: > 89 mm Hg(4); Respiratory Rate: 10 to 29 per min(4); [place] Score: 15; Trauma Score: 12 06:00 Eye Response: spontaneous(1); Verbal Response: oriented(1); Motor Response: obeys rr5 commands(2); Systolic BP: > 89 mm Hg(4); Respiratory Rate: 10 to 29 per min(4); [place] Score: 15; Trauma Score: 12 08:17 Eye Response: spontaneous(1); Verbal Response: oriented(1); Motor Response: obeys ph commands(2); Systolic BP: > 89 mm Hg(4); Respiratory Rate: 10 to 29 per min(4); [place] Score: 15; Trauma Score: 12 10:46 Eye Response: spontaneous(1); Verbal Response: oriented(1); Motor Response: obeys ph commands(2); Systolic BP: > 89 mm Hg(4); Respiratory Rate: 10 to 29 per min(4); [place] Score: 15; Trauma Score: 12 ED Course: 01:54 Patient arrived in ED. mg2 01:56 Sathish Sullivan, RN is Primary Nurse. rr5 01:59 Triage completed. rr5 02:00 Mychal Frazier MD is Attending Physician. pkl 02:00 Arm band placed on right wrist. rr5 02:00 Pulse ox on. NIBP on. rr5 02:00 Patient maintains SpO2 saturation greater than 95% on room air. Thermoregulation: warm rr5 blanket given to patient. 02:02 Patient has correct armband on for positive identification. Placed in gown. Bed in low rr5 position. Call light in reach. Side rails up X2. 02:18 Door closed. Warm blanket given. rr5 02:49 Hip Left 2 View XRAY In Process Unspecified. EDMS 02:59 CT Head Brain wo Cont In Process Unspecified. EDMS 03:00 No provider procedures requiring assistance completed. mg2 03:35 Urine collected: straight cath specimen, clear, Amount Returned: 350mL. rr5 05:03 CT Pelvis wo Cont In Process Unspecified. EDMS 05:50 Inserted saline lock: 20 gauge in right antecubital area, using aseptic technique. mg2 Blood collected. 06:14 Austin Finley MD is Hospitalizing Provider. pkl 06:15 Carcamo cath inserted, using sterile technique, [address], balloon inflated, urine mg2 specimen collected. 06:20 Patient admitted, IV remains in place. mg2 Administered Medications: 02:11 Drug: UltRAM 50 mg {Note: rass 0.} Route: PO; rr5 03:15 Follow up: Response: No adverse reaction; RASS: Alert and Calm (0) rr5 06:19 Drug: NS 0.9% 1000 ml Route: IV; Rate: 125 ml/hr; Site: right antecubital; mg2 11:12 Follow up: IV Status: Infusion continued upon admission em Intake: 02:59 PO: 0ml; Total: 0ml. mg2 Output: 06:29 Urine: 500ml ([place]); Total: 500ml. mg2 Outcome: 06:18 Decision to Hospitalize by Provider. pkl 11:11 Admitted to Med/surg accompanied by heidi, via stretcher, room 228, with chart, Report em called to DANIKA Simpson 11:11 Condition: good 11:11 Instructed on the need for admit, Demonstrated understanding of instructions. 11:11 Patient's length of stay in the Emergency Department was greater than 2 hours. no room em assignments Patient's length of stay extended due to 11:39 Patient left the ED. ph Signatures: Dispatcher [employer] EDMS Mychal Frazier MD MD pkl Munoz, Edgar, RN RN em Cecy Keen RN RN ph Melecio Santiago RN RN mg2 Sathish Sullivan RN RN rr5 Corrections: (The following items were deleted from the chart) 03:00 02:59 Pulse 68bpm; Resp 18bpm; Pulse Ox 96% RA; mg2 mg2 06:20 03:00 Patient did not have IV access during this emergency room visit. mg2 mg2
[2020-04-27] MEDS ORDERED: NA CHLORIDE 0.9% 1,000 ML ONE (06:24)
[2020-04-27 06:35] LABS: Protime INR 0.97
[2020-04-27 06:41] LABS: Urine Blood TRACE (NEG); Urine Glucose NEGATIVE (NEG); Urine Protein NEGATIVE (NEG)
[2020-04-27 06:46] LABS: BUN Blood Urea Nitrogen 20 mg/dL (7-18); Bicarbonate 27 mmol/L (21-32); Glucose Level 101 mg/dL (74-106); Potassium 3.6 mmol/L (3.5-5.1); Sodium Level 138 mmol/L (136-145)
[2020-04-27 06:47] LABS: ALT/SGPT 22 U/L (12-78); AST/SGOT 14 U/L (15-37); Albumin 3.3 g/dL (3.4-5.0); Alkaline Phosphatase 57 U/L (45-117); Bilirubin Direct < 0.1 mg/dL (0-0.2); Bilirubin Total 0.3 mg/dL (0.2-1.0); Magnesium 2.5 mg/dL (1.8-2.4); NT PRO-BNP 724 pg/mL (<450); Protein, Total 6.1 g/dL (6.4-8.2); Troponin (Emerg Dept Use Only) 0.07 ng/mL (0.0-0.045)
[2020-04-27] MEDS ORDERED: ONDANSETRON 4 MG/2 ML VIAL IV PRN (07:06)
[2020-04-27] MEDS ORDERED: ACETAMINOPHEN 500 MG TAB PO PRN (07:06)
[2020-04-27] MEDS ORDERED: NA CHLORIDE 0.9% 1,000 ML IV SCH (08:00)
--- NOTE | 2020-04-27 08:47 | RAD REPORT ---
EXAM DESCRIPTION: RAD - Chest Single View - 04/27/2020 7:51 am CLINICAL HISTORY: fall, chest pain COMPARISON: Portable January 06, 2020 TECHNIQUE: AP portable chest image was obtained 04/27/2020 7:51 am . FINDINGS: Chronic interstitial lung pattern matches comparison. Hazy opacification in the lower righ t lung field is believed to be skin fold artifact. No failure or volume overload. Heart size is upper normal. No acute vascular engorgement. No pulmonary contusion, pneumothorax or pleural fluid seen. No acute bone deformity seen. Old proxim al humerus fracture on the right. Rib detail is limited. No acute aortic findings suspected. IMPRESSION: No pulmonary contusion, pneumothorax or acute lung parenchymal process. No acute bone deformity seen. Rib detail is limited.
--- NOTE | 2020-04-27 08:49 | RAD REPORT ---
EXAM DESCRIPTION: RAD - Femur Left - 04/27/2020 7:51 am CLINICAL HISTORY: fall COMPARISON: Left femur September 2015 FINDINGS: Left pelvic superior and inferior pubic rami fractures have been separately detailed. Hard lemons is in place from prior proximal left femur fracture repair. Hardware remains in good positioning . No acute fracture of the femur identifiable. No joint effusion the knee. Bones are osteopenic. No a ir or foreign body in the soft tissues. IMPRESSION: No left femur fracture identified. Pelvic fractures are separately detailed.
[2020-04-27] MEDS ORDERED: CEFAZOLIN/SWI 1gm 1 GM/10 ML SYR IVP SCH (12:00)
[2020-04-27] MEDS: THIAMINE HCL 100 MG TABLET PO SCH (12:22)
[2020-04-27] MEDS: TRAMADOL HCL 50 MG TAB PO PRN ×2 (12:22→19:57)
[2020-04-27] MEDS: MONTELUKAST 10 MG TAB PO SCH (12:23)
[2020-04-27] MEDS: CITALOPRAM 10 MG TABLET PO SCH (12:23)
[2020-04-27 12:25] LABS: Hematocrit 25.5 % (36.0-45.0)
[2020-04-27] MEDS: FAMOTIDINE 20 MG TAB PO SCH ×2 (12:26→19:56)
[2020-04-27] MEDS: CEFAZOLIN/SWI 1gm 1 GM/10 ML SYR IVP SCH ×3 (12:58→23:37)
[2020-04-27 13:07] LABS: Ferritin 8.1 ng/mL (8-388)
[2020-04-27 13:32] VITALS: BMI 21.1
[2020-04-27] MEDS: NA CHLORIDE 0.9% 1,000 ML IV SCH ×2 (13:32→19:56)
[2020-04-27] MEDS ORDERED: ALBUTEROL INHALER 60 PUFF/8 GM IH PRN (13:36)
--- NOTE | 2020-04-27 13:42 | P.HP ---
Certification for Inpatient Patient admitted to: Inpatient With expected LOS: >2 Midnights Patient will require the following post-hospital care: Rehabilitation Practitioner: I am a practitioner with admitting privileges, knowledge of patient current condition, hospital course, and medical plan of care. Services: Services provided to patient in accordance with Admission requirements found in Title 42 Section 412.3 of the Code of Federal Regulations Patient History Date of Service: 04/27/20 Primary Care Provider: Dr. Calvo; Cardiology-Dr. Woodard Reason for admission: Fall History of Present Illness: 80-year-old female with history of hypertension, hyperlipidemia, COPD, chronic anemia, tobacco abuse and alcohol use. Patient reports that she got up to the bathroom around 1:00 a.m.. She apparently tripped on some then and fell to the ground. She had pain to multiple joints. This included her left hip. She denied any chest pain, shortness of breath, presyncope or syncope. Patient called EMS for further evaluation. EMS took the patient to the hospital for further evaluation. In the ER patient was evaluated. White count 13, hemoglobin 8.5. Sodium 138, potassium 3.6, BUN of 20, creatinine 0.72 with a GFR 78. Glucose 101. Troponin 0.07. BNP 724. Further lab showed small amount of extraperitoneal blood along the left pelvic side wall am bladder. No mass effect noted on the bladder. Comminuted displaced fracture of the left superior pubic ramus noted. Comminuted fracture of the left inferior pubic ramus without displacement. Suspected acute fracture of the greater tuberosity of the left femur noted open reduction internal fixation of the proximal left femur identified. Patient was admitted for further evaluation and pain control. When I saw the patient ER, pain appeared stable. She denies any significant chest pain or shortness of breath. Allergies codeine Allergy (Verified 04/14/19 02:56) Rash guaifenesin [From Robitussin] Allergy (Verified 04/14/19 02:56) Itching/Hives/Rash Cough Syrup Allergy (Uncoded 10/26/18 10:13) Unknown Home medications list reviewed: Yes Home Medications: Aspirin [Aspirin EC 81 MG] 81 mg PO DAILY 04/14/19 Citalopram [Celexa*] 20 mg PO DAILY 04/14/19 Montelukast [Singulair*] 10 mg PO DAILY 04/14/19 Pravastatin Sodium 40 mg PO BEDTIME 04/14/19 Ranitidine [Zantac*] 150 mg PO DAILY 04/14/19 traMADol HCL [Ultram*] 50 mg PO Q6H PRN #20 tab 04/14/19 - Past Medical/Surgical History Has patient received pneumonia vaccine in the past: Yes Diabetic: No -: Hypertension -: COPD -: GERD -: Hyperlipidemia -: Scoliosis -: Depression -: Dementia -: Tobacco abuse -: Alcohol use -: Chronic anemia -: Hysterectomy -: Cholecystectomy -: Cataracts surgery -: -: Left open reduction internal fixation of the left femur Psychosocial/ Personal History: Patient lives at home. - Family History Father -: Hypertension, Lung disease, Cancer Notes: high cholesterol Mother -: Hypertension, Lung disease, Cancer, Other (see notes) Notes: stomach/lung cancer; high cholesterol - Social History Smoking Status: Current every day smoker Counseled patient to stop smoking for: less than 10 minutes Smoking therapy provided: Yes Patient receptive to therapy: Yes Alcohol use: No CD- Drugs: No Caffeine use: Yes Place of Residence: Home Review of Systems General: Weakness, As per HPI Eyes: Unremarkable ENT: Unremarkable Respiratory: Unremarkable Cardiovascular: Unremarkable Gastrointestinal: Unremarkable Genitourinary: Unremarkable Musculoskeletal: Back Pain, Leg Pain, As per HPI Integumentary: Unremarkable Neurological: Unremarkable Lymphatics: Unremarkable Physical Examination - Vital Signs Temperature: 97.9 F Blood Pressure: 159/77 Pulse: 77 Respirations: 18 Pulse Ox (%): 96 - Physical Exam General: Alert, In no apparent distress, Oriented x3, Cooperative, Other (Patient appears pale) HEENT: Atraumatic, Normocephalic, Other (Dry mucous membranes) Neck: Supple Respiratory: Clear to auscultation bilaterally, Normal air movement Cardiovascular: Normal pulses, Regular rate/rhythm Gastrointestinal: Normal bowel sounds, Soft and benign, Non-distended, No tenderness, No masses, No rebound, No guarding Musculoskeletal: No warmth, Tenderness (Tender to the left hip region and pelvis) Integumentary: No warmth, No cyanosis Neurological: Normal speech, Normal strength at 5/5 x4 extr, Normal tone, Normal affect - Studies Laboratory Data (last 24 hrs) 04/27/20 05:55: PT 11.4, INR 0.97 04/27/20 05:55: WBC 13.3 H, Hgb 8.5 L, Hct 26.6 L, Plt Count 243 04/27/20 05:55: Sodium 138, Potassium 3.6, BUN 20 H, Creatinine 0.72, Glucose 101, Magnesium 2.5 H, Total Bilirubin 0.3, AST 14 L, ALT 22, Alkaline Phosphatase 57 Assessment and Plan - Plan Impression: Mechanical fall with noted comminuted displaced fracture of the left superior pubic ramus/comminuted fracture of the left inferior pubic ramus without displacement/acute fracture of the greater tuberosity of the left femur with not ed prior open reduction internal fixation of the proximal left femur Anemia of chronic disease with iron and B12 deficiency Hypertension Hyperlipidemia GERD Depression with anxiety Dementia Plan: Mechanical fall with noted comminuted displaced fracture of the left superior pubic ramus/comminuted fracture of the left inferior pubic ramus without displacement/acute fracture of the greater tuberosity of the left femur with noted prior open reduction internal fixation of the proximal left femur: Patient admitted for further evaluation and treatment. Case discussed at length with orthopedics. Fractures are nonsurgical. Will need to have physical therapy occupational therapy evaluate patient. Orthopedics recommends weight- bearing as tolerated to the lower extremities. Will have physical therapy evaluate and assess for possible inpatient rehab versus skilled placement. Advanced directives and advanced care planning address with patient. Patient is do not resuscitate. Patient agrees with possible inpatient rehab. Will need to reassess after physical therapy evaluation to determine if patient will meet requirements. Other considerations include skilled placement versus home with home health. Will discuss further with family. Will provide DVT prophylaxis. Will provide medication for pain. Will discuss further with social work. Antici sanchez discharge in the next 48-72 hr. Anemia of chronic disease with iron and B12 deficiency: Will monitor hemoglobin. Will provide IV iron and B12 supplementation. If hemoglobin below 7.5 will consider transfusion. Hypertension: Will need to obtain and restart home medication. Hyperlipidemia: Will need to obtain and restart home medication. GERD: Will need to obtain and verify home medication. Will provide medication Depression with anxiety: Obtain and restart home medication Dementia: Obtain a restart home medication Tobacco abuse: Patient may require nicotine patch. Will address cessation education Alcohol use: Will address cessation education Discharge Plan: Other (Inpatient rehab) Plan to discharge in: Greater than 2 days - Advance Directives Does patient have a Living Will: No Does patient have a Durable POA for Healthcare: No - Code Status/Comfort Care Code Status Assessed: Yes (Patient is do not resuscitate) Time Spent Managing Pts Care (In Minutes): 55 (This includes advanced care jacquelin nning/advanced directives)
[2020-04-27] MEDS ORDERED: CYANOCOBALAMIN 1000MCG/ML INJ IM ONE (14:00)
[2020-04-27] MEDS: SOD FERRIC GLUC COMPLX/SUCROSE 125 MG in NA CHLORIDE 0.9% 100 ML IV SCH (15:27)
[2020-04-27] MEDS ORDERED: POTASSIUM CL SA 10 MEQ TAB PO ONE (18:00)
[2020-04-27] MEDS: ENOXAPARIN 30 MG/0.3 ML SQ SCH (18:13)
[2020-04-27] MEDS: HYDRALAZINE HCL 20 MG/ML VIAL IV PRN (18:14)
[2020-04-27 19:07] LABS: Hematocrit 25.3 % (36.0-45.0)
--- NOTE | 2020-04-27 20:26 | RAD REPORT ---
EXAM DESCRIPTION: CT - Head Brain Wo Cont - 04/27/2020 5:11 am CLINICAL HISTORY: Fall TECHNIQUE: Contiguous axial CT images obtained through the brain without IV contrast. Coronal and sa gittal reformatted images were provided. This exam was performed according to our departmental dose-optimization program, which includes autom ated exposure control, adjustment of the mA and/or kV according to patient size and/or use of iterati ve reconstruction technique. COMPARISON: 04/13/2019 FINDINGS: Brain: Mild cerebral atrophy and mild to moderate bilateral periventricular and subcortica l white matter low-attenuation most compatible with chronic microvascular angiopathy without signific ant interval change. Interval development of right cerebellar encephalomalacia compatible with remote insult. No focal mass effect. Bond-white matter differentiation is within normal limits. No hemorrha ge. Ventricles: No ventriculomegaly or midline shift. Extra-axial spaces: No extra-axial collection or hemorrhage. Paranasal sinuses and mastoid air cells: Well-aerated Vessels: There is atherosclerotic disease of the internal carotid arteries bilaterally. Bones: Unremarkable Soft tissues: Unremarkable IMPRESSION: 1. No acute intracranial or extra-axial abnormality. 2. Other findings as above. Electronically signed by: Markus Tate MD 04/27/2020 2:55 AM CDT Due to temporary technical issues with the PACS/Fluency reporting system, reports are being signed by the in house radiologist without review as a courtesy to ensure prompt reporting. The interpreting r adiologist is fully responsible for the content of the report.
--- NOTE | 2020-04-27 20:28 | RAD REPORT ---
EXAM DESCRIPTION: CT - Pelvis Wo Cont - 04/27/2020 6:21 am CLINICAL HISTORY: The patient is 80 years old and is Female; fall TECHNIQUE: Axial computed tomography images of the pelvis without intravenous contrast. Sagittal a nd coronal reformatted images were created and reviewed. This CT exam was performed using one or mo re of the following dose reduction techniques: automated exposure control, adjustment of the mA and /or kV according to patient size, and/or use of iterative reconstruction technique. COMPARISON: X-ray left hip April 27, 2020. FINDINGS: Bones/joints: Displaced fracture left superior pubic ramus. Comminuted fracture of the left inferior pubic ramus, not significantly displaced. Suspect acute fracture, greater tuberosity of the left femur. Previous ORIF proximal left fe mur. Degenerative changes in the bilateral hips. No fracture of the proximal right femur. Scoliosis with degenerative changes in the visualized lower lumbar spine. No dislocation. Soft tissues: Deep soft tissue swelling and edema adjacent to the femur on the last few inferior im ages of the proximal left thigh.. Vasculature: Aortoiliac atherosclerotic calcification. Stomach and bowel: No dilated bowel loops. Colonic diverticulosis. Appendix: The visualized appendix is normal. No pericecal inflammation to suggest acute appendic itis. Bladder: Small amount of extraperitoneal blood along the left pelvic sidewall/bladder. No signifi cant mass effect on the bladder. No stones. Reproductive: The uterus is small or absent. No adnexal mass. IMPRESSION: 1. Small amount of extraperitoneal blood along the left pelvic sidewall/bladder. No significant mas s effect on the bladder. 2. Comminuted, displaced fracture left superior pubic ramus. 3. Comminuted fracture of the left inferior pubic ramus, not significantly displaced. 4. Suspect acute fracture, greater tuberosity of the left femur. Previous ORIF proximal left femur. 5. Deep soft tissue edema and swelling adjacent to the femur on the last few inferior images of the proximal left thigh. Suggest dedicated x-rays of the left femur. Electronically signed by: Valery Torres MD 04/27/2020 5:26 AM CDT Due to temporary technical issues with the PACS/Fluency reporting system, reports are being signed by the in house radiologist without review as a courtesy to ensure prompt reporting. The interpreting r adiologist is fully responsible for the content of the report.
--- NOTE | 2020-04-27 20:29 | RAD REPORT ---
EXAM DESCRIPTION: RAD - Hip Left 2 View - 04/27/2020 2:50 am CLINICAL HISTORY: The patient is 80 years old and is Female; fall;Pain TECHNIQUE: Two or three views of the left hip with pelvis when performed. COMPARISON: No relevant prior studies available. FINDINGS: BONES/JOINTS: Fracture of the left inferior and superior pubic ramus is present. The fem oral head is well located. Post surgical change of the proximal left femur is present. No dislocati on. SOFT TISSUES: Unremarkable. VASCULATURE: Atherosclerosis of the vasculature is present. IMPRESSION: Left superior and inferior pubic rami fractures Electronically signed by: Karie Leon MD 04/27/2020 5:14 AM CDT Due to temporary technical issues with the PACS/Fluency reporting system, reports are being signed by the in house radiologist without review as a courtesy to ensure prompt reporting. The interpreting r adiologist is fully responsible for the content of the report.
[2020-04-27] MEDS ORDERED: ATORVASTATIN 10 MG TAB PO SCH (21:00)
[2020-04-27] MEDS ORDERED: HOME MED 1 EA UNK (Pravastatin Sodium [Pravastatin Sodium] 40 MG) PO SCH (21:00)
[2020-04-27] MEDS ORDERED: DULERA 100/5 (MOMETASONE/FORMOTEROL) INHALER IH SCH (21:00)
[2020-04-28] MEDS: HYDRALAZINE HCL 20 MG/ML VIAL IV PRN ×2 (00:17→11:20)
--- NOTE | 2020-04-28 00:19 | CON ---
Date of Consultation: 04/27/2020 Reason For Consultation: Left hip pain. History Of Present Illness: Lila is an 80-year-old female who presented to the ER today after susta ining a fall early this morning. She was brought to the emergency room and had x-rays which demonstr ated left pubic rami fractures and a left greater trochanter fracture. She denies any other musculos keletal complaints at this time. She was admitted to the floor for pain control, physical therapy, a nd medical management with her history of hypertension, hyperlipidemia, COPD, chronic DVT, and tobacc o use and alcohol use. Review of Systems: As above, otherwise negative. Past Medical History: Includes hypertension, COPD, GERD, hyperlipidemia, depression, dementia. Past Surgical History: Hysterectomy, cholecystectomy, cataract surgery, . Allergies: TO CODEINE, GUAIFENESIN. Home Medications: Per medication reconciliation form. Family History: Really noncontributory. Physical Examination: General: No apparent distress. HEENT: Normocephalic, atraumatic. Neck: Supple. Cardiovascular: Brisk cap refill to all digits. Chest: Nonlabored breathing. Abdomen: Nondistended. Psychiatric: Responsive to exam. Musculoskeletal: Bilateral upper extremities with functional range of motion without pain. No gross deformities. No obvious dislocations. Right lower extremity with functional range of motion withou t pain. No gross deformities. No obvious dislocations. Left lower extremity has tenderness to palp ation over the left lateral aspect of the hip. Some pain with abduction of the hip. No pain with in ternal or external rotation of the hip. X-rays: X-rays of the left hip demonstrate a minimally displaced greater trochanter fracture as well as fracture of the superior and inferior pubic rami. Assessment And Plan: Ms. Martin is an 80-year-old female with left-sided pubic rami fractures and a le ft greater trochanteric femur fracture. We will proceed with closed treatment; no operative interven tion is indicated at this time. She may be weightbearing as tolerated on the bilateral lower extremi ties. Physical Therapy may be consulted to aid with mobilization, and she may follow up with my clin ic in 2 weeks for repeat x-rays of her AP pelvis and her left hip. BRITTANIE/YUMIKO Voice ID: [id number] Report ID: [id number]
[2020-04-28] MEDS: CEFAZOLIN/SWI 1gm 1 GM/10 ML SYR IVP SCH ×3 (05:28→18:00)
[2020-04-28 06:11] LABS: ALT/SGPT 17 U/L (12-78); AST/SGOT 17 U/L (15-37); Albumin 3.3 g/dL (3.4-5.0); Alkaline Phosphatase 61 U/L (45-117); BUN Blood Urea Nitrogen 8 mg/dL (7-18); Bicarbonate 26 mmol/L (21-32); Bilirubin Total 0.5 mg/dL (0.2-1.0); Glucose Level 107 mg/dL (74-106); Phosphorus 2.5 mg/dL (2.5-4.9); Potassium 3.5 mmol/L (3.5-5.1); Protein, Total 6.2 g/dL (6.4-8.2); Sodium Level 136 mmol/L (136-145)
[2020-04-28 06:13] LABS: Absolute Lymphocytes (CBC) 1.6 K/uL (0.7-4.9); Basophils % 0.9 % (0-1.3); Hematocrit 25.5 % (36.0-45.0); Lymphocytes % 17.8 % (15.3-44.8); MPV 9.9 fL (7.6-11.3); RBC Red Blood Cell Count 2.91 M/uL (3.86-4.86)
[2020-04-28 06:25] LABS: Protime INR 1.03
[2020-04-28] MEDS: ENOXAPARIN 30 MG/0.3 ML SQ SCH (08:24)
[2020-04-28] MEDS: CITALOPRAM 10 MG TABLET PO SCH (08:24)
[2020-04-28] MEDS: MONTELUKAST 10 MG TAB PO SCH (08:24)
[2020-04-28] MEDS: THIAMINE HCL 100 MG TABLET PO SCH (08:24)
[2020-04-28] MEDS: FAMOTIDINE 20 MG TAB PO SCH ×2 (08:24→20:39)
[2020-04-28] MEDS: FOLIC ACID 1 MG TABLET PO SCH (08:25)
[2020-04-28] MEDS: CYANOCOBALAMIN 1,000 MCG TAB PO SCH (08:25)
[2020-04-28] MEDS: POTASS/SODIUM PHOSPHATE 1 PKT POWD.PACK PO SCH ×3 (08:25→10:57)
[2020-04-28] MEDS: SOD FERRIC GLUC COMPLX/SUCROSE 125 MG in NA CHLORIDE 0.9% 100 ML IV SCH (08:27)
[2020-04-28] MEDS ORDERED: POTASSIUM CL SA 10 MEQ TAB PO ONE (09:00)
[2020-04-28] MEDS ORDERED: METHYLPREDNISOLONE 40 MG INJ IV ONE (09:16)
--- NOTE | 2020-04-28 11:36 | RAD REPORT ---
EXAM DESCRIPTION: RAD - Chest Single View - 04/28/2020 9:10 am CLINICAL HISTORY: copd Chest pain. COMPARISON: Chest Single View dated 04/27/2020; Chest Single View dated 01/06/2020; Chest Single View d ated 12/24/2016; Chest Single View dated 12/23/2016 FINDINGS: Portable technique limits examination quality. Emphysematous changes are present throughout the lungs. The heart is normal in size. Aortic atheroscl erosis is seen.Prominent dextroscoliosis of the thoracic spine is present. IMPRESSION: Prominent COPD.
--- NOTE | 2020-04-28 12:19 | P.PN ---
Subjective Date of Service: 04/28/20 Primary Care Provider: Dr. Calvo; Cardiology-Dr. Woodard Chief Complaint: Fall Subjective: Other (Mild shortness of breath noted. Pain seems to be controlled.) Physical Examination - Vital Signs Temperature: 97.9 F Blood Pressure: 169/93 Pulse: 94 Respirations: 21 Pulse Ox (%): 96 - Physical Exam General: Alert, In no apparent distress, Oriented x3, Cooperative HEENT: Atraumatic Neck: Supple Respiratory: Expiratory wheezes (Bilateral), Other (Poor inspiration and expiration) Cardiovascular: Normal pulses, Regular rate/rhythm Gastrointestinal: Normal bowel sounds, Soft and benign, Non-distended Integumentary: No erythema, No warmth, No cyanosis Neurological: Normal speech, Normal strength at 5/5 x4 extr, Normal tone, Normal affect - Studies Medications List Reviewed: Yes Assessment & Plan Discharge Plan: Other (Inpatient rehab) Plan to discharge in: 72 Hours Physician Review Additional Text: Impression: Mechanical fall with noted comminuted displaced fracture of the left superior pubic ramus/comminuted fracture of the left inferior pubic ramus without displacement/acute fracture of the greater tuberosity of the left femur with noted prior open reduction internal fixation of the proximal left femur COPD exacerbation Anemia of chronic disease with iron and B12 deficiency Hypertension Hyperlipidemia GERD Depression with anxiety Dementia Plan: Mechanical fall with noted comminuted displaced fracture of the left superior pubic ramus/comminuted fracture of the left inferior pubic ramus without displacement/acute fracture of the greater tuberosity of the left femur with noted prior open reduction internal fixation of the proximal left femur: Pain seems to be well controlled. Case discussed with orthopedics yesterday. Fractures non surgical. Will have physical therapy and occupational therapy evaluate patient. Await recommendations by physical therapy. Possible inpatient rehab referral verses skilled placement. Advanced care planning discussed with patient. Patient would try for inpatient rehab. Will discuss with . Continue DVT prophylaxis. Patient with mild COPD exacerbation. Will start prednisone. Continue medication. Will consult pulmonology to further evaluate. I will turn the service over to the hospitalist team tomorrow. I will go the plan of care with him. COPD exacerbation: Will provide prednisone. Will obtain chest x-ray. Continue COPD medication. Maintain sats above 93%. Will consult pulmonology for further recommendations. Anemia of chronic disease with iron and B12 deficiency: Patient with iron and B12 deficiency. Will start IV iron. Replace B12. Monitor hemoglobin. Hypertension: Continue home medication. Hyperlipidemia: Continue home medication. GERD: Continue medication. Depression with anxiety: Continue medication Dementia: Obtain and restart home medication Tobacco abuse: Patient with significant tobacco history. Will provide nicotine patch. Continue cessation education. Alcohol use: Continue to cessation education Time Spent Managing Pts Care (In Minutes): 55 (Advance care planning address in detail. 30 minutes.)
--- NOTE | 2020-04-28 15:49 | P.CNS ---
Date of Consult: 04/28/20 Primary Care Provider: Dr. Calvo; Cardiology-Dr. Woodard Chief Complaint: COPD History of Present Illness: Patient is 80 years of age admitted with left-sided pubic rami fractures and left greater in trochanteric femur fracture no operative interventions physical therapy has been console did she does have a history of COPD patient is on bronchodilators at home Patient is a poor historian not sure war bronchodilator she is on Allergies codeine Allergy (Verified 04/14/19 02:56) Rash guaifenesin [From Robitussin] Allergy (Verified 04/14/19 02:56) Itching/Hives/Rash Cough Syrup Allergy (Uncoded 10/26/18 10:13) Unknown Home Medications: Citalopram [Celexa*] 20 mg PO BEDTIME 04/27/20 Montelukast [Singulair*] 1 tab PO DAILY 04/27/20 Pravastatin Sodium 1 tab PO BEDTIME 04/27/20 - Past Medical/Surgical History Diabetic: No -: Hypertension -: COPD -: GERD -: Hyperlipidemia -: Scoliosis -: Depression -: Dementia -: Tobacco abuse -: Alcohol use -: Chronic anemia -: Hysterectomy -: Cholecystectomy -: Cataracts surgery -: -: Left open reduction internal fixation of the left femur Psychosocial/ Personal History: Patient lives at home. - Family History Father Medical History: Hypertension, Lung disease, Cancer Notes: high cholesterol Mother Medical History: Hypertension, Lung disease, Cancer, Other (see notes) Notes: stomach/lung cancer; high cholesterol - Social History Smoking Status: Current every day smoker Alcohol use: No CD- Drugs: No Caffeine use: Yes Place of Residence: Home Review of Systems General: Weakness Respiratory: Shortness of Breath Musculoskeletal: Other (Pelvic pain) Physical Examination Temp Pulse Resp BP Pulse Ox 97.9 F 100 H 21 H 140/80 96 04/28/20 12:18 04/28/20 13:00 04/28/20 12:18 04/28/20 13:00 04/28/20 12:18 General: Alert, Oriented x3, Other (Very [id number]) Neck: Supple Respiratory: Friction rub, Inspiratory wheezes Cardiovascular: Normal pulses Gastrointestinal: Normal bowel sounds - Problems (1) COPD (chronic obstructive pulmonary disease) Current Visit: Yes Status: Acute Plan: Patient is 80 years of age with a history of COPD admitted with the fractures of the pubic rami seen by you orthopedics conservative treatment is recommended at this time patient is short of breath not sure of or bronchodilators she takes at home patient is mildly anemic normocytic chest x-ray shows COPD changes room- air sat is 94% apparently she has BiPAP for a noninvasive ventilator at home Qualifiers: COPD type: unspecified COPD Qualified Code(s): J44.9 - Chronic obstructive pulmonary disease, unspecified
[2020-04-28] MEDS ORDERED: METHYLPREDNISOLONE 40 MG INJ IV SCH (17:00)
[2020-04-28] MEDS ORDERED: CEFAZOLIN/SWI 1gm 1 GM/10 ML SYR IVP ONE (18:15)
[2020-04-28] MEDS: ARFORMOTEROL TARTRATE 15 MCG/2 ML VIAL.NEB NEB SCH (20:05)
[2020-04-28] MEDS: IPRATROPIUM BROM 0.5MG/2.5ML NEB PRN (20:05)
[2020-04-28] MEDS: predniSONE 10 MG TAB PO SCH (20:38)
[2020-04-28] MEDS: ATORVASTATIN 10 MG TAB PO SCH (20:38)
[2020-04-28] MEDS ORDERED: HOME MED 1 EA UNK (Pravastatin Sodium [Pravastatin Sodium] 1 TAB) PO SCH (21:00)
[2020-04-28] MEDS: TRAMADOL HCL 50 MG TAB PO PRN (23:30)
[2020-04-29 05:40] LABS: BUN Blood Urea Nitrogen 8 mg/dL (7-18); Bicarbonate 26 mmol/L (21-32); Glucose Level 111 mg/dL (74-106); Phosphorus 2.9 mg/dL (2.5-4.9); Potassium 3.5 mmol/L (3.5-5.1); Sodium Level 135 mmol/L (136-145)
[2020-04-29] MEDS: ENOXAPARIN 40 MG/0.4 ML SQ SCH (08:21)
[2020-04-29] MEDS: THIAMINE HCL 100 MG TABLET PO SCH (08:22)
[2020-04-29] MEDS: MONTELUKAST 10 MG TAB PO SCH (08:22)
[2020-04-29] MEDS: FOLIC ACID 1 MG TABLET PO SCH (08:22)
[2020-04-29] MEDS: CITALOPRAM 10 MG TABLET PO SCH (08:23)
[2020-04-29] MEDS: CYANOCOBALAMIN 1,000 MCG TAB PO SCH (08:23)
[2020-04-29] MEDS: NICOTINE 21 MG/PAT TD SCH (08:23)
[2020-04-29] MEDS: predniSONE 10 MG TAB PO SCH ×2 (08:23→20:42)
[2020-04-29] MEDS: ARFORMOTEROL TARTRATE 15 MCG/2 ML VIAL.NEB NEB SCH ×2 (08:27→20:15)
[2020-04-29] MEDS: FAMOTIDINE 20 MG TAB PO SCH ×2 (09:00→20:42)
[2020-04-29] MEDS ORDERED: POTASSIUM CL SA 10 MEQ TAB PO ONE (09:00)
[2020-04-29] MEDS: SOD FERRIC GLUC COMPLX/SUCROSE 125 MG in NA CHLORIDE 0.9% 100 ML IV SCH (09:32)
--- NOTE | 2020-04-29 11:58 | P.PN ---
Subjective Date of Service: 04/29/20 Primary Care Provider: Dr. Calvo; Cardiology-Dr. Woodard Chief Complaint: COPD Subjective: No new changes, No C/O voiced (awaiting SNF placement) Physical Examination - Vital Signs Temperature: 98.3 F Blood Pressure: 150/69 Pulse: 92 Respirations: 18 Pulse Ox (%): 95 - Physical Exam General: Alert, In no apparent distress, Oriented x3 HEENT: Atraumatic, Normocephalic, PERRLA Respiratory: Clear to auscultation bilaterally, Normal air movement Cardiovascular: Normal pulses, Regular rate/rhythm, Normal S1 S2 Gastrointestinal: Normal bowel sounds, Soft and benign, Non-distended Neurological: Normal speech, Normal strength at 5/5 x4 extr, Normal tone External genitalia: No edema, No lesions - Studies Laboratory Last Values WBC 13.3 K/uL (4.3-10.9) H 04/27/20 05:55 RBC 3.01 M/uL (3.86-4.86) L 04/27/20 05:55 Hgb 8.5 g/dL (12.0-15.0) L 04/27/20 05:55 Hct 26.6 % (36.0-45.0) L 04/27/20 05:55 MCV 88.3 fL (80-100) D 04/27/20 05:55 MCH 28.2 pg (27.0-35.0) D 04/27/20 05:55 MCHC 32.0 g/dL (32.0-36.0) 04/27/20 05:55 RDW 14.5 % (12.1-15.2) 04/27/20 05:55 Plt Count 243 K/uL (152-406) 04/27/20 05:55 MPV 9.2 fL (7.6-11.3) 04/27/20 05:55 Neutrophils % 80.3 % (41.7-73.7) H 04/27/20 05:55 Lymphocytes % 11.6 % (15.3-44.8) L 04/27/20 05:55 Monocytes % 7.1 % (3.3-12.3) 04/27/20 05:55 Eosinophils % 0.3 % (0-4.4) 04/27/20 05:55 Basophils % 0.7 % (0-1.3) 04/27/20 05:55 Absolute Neutrophils 10.7 K/uL (1.8-8.0) H 04/27/20 05:55 Absolute Lymphocytes 1.5 K/uL (0.7-4.9) 04/27/20 05:55 Absolute Monocytes 0.9 K/uL (0.1-1.3) 04/27/20 05:55 Absolute Eosinophils 0.0 K/uL (0-0.5) 04/27/20 05:55 Absolute Basophils 0.1 K/uL (0-0.5) 04/27/20 05:55 PT 11.4 SECONDS (9.5-12.5) 04/27/20 05:55 INR 0.97 04/27/20 05:55 Sodium 138 mmol/L (136-145) 04/27/20 05:55 Potassium 3.6 mmol/L (3.5-5.1) 04/27/20 05:55 Chloride 103 mmol/L (98-107) 04/27/20 05:55 Carbon Dioxide 27 mmol/L (21-32) 04/27/20 05:55 BUN 20 mg/dL (7-18) H 04/27/20 05:55 Creatinine 0.72 mg/dL (0.55-1.3) 04/27/20 05:55 Estimated GFR 78 mL/min (=/>90) L 04/27/20 05:55 Glucose 101 mg/dL (74-106) 04/27/20 05:55 Calcium 8.3 mg/dL (8.5-10.1) L 04/27/20 05:55 Magnesium 2.5 mg/dL (1.8-2.4) H 04/27/20 05:55 Total Bilirubin 0.3 mg/dL (0.2-1.0) 04/27/20 05:55 Direct Bilirubin < 0.1 mg/dL (0-0.2) 04/27/20 05:55 AST 14 U/L (15-37) L 04/27/20 05:55 ALT 22 U/L (12-78) 04/27/20 05:55 Alkaline Phosphatase 57 U/L (45-117) 04/27/20 05:55 Rapid Troponin I 0.07 ng/mL (0.0-0.045) H 04/27/20 05:55 NT-Pro-B Natriuret Pep 724 pg/mL (<450) H 04/27/20 05:55 Serum Total Protein 6.1 g/dL (6.4-8.2) L 04/27/20 05:55 Albumin 3.3 g/dL (3.4-5.0) L 04/27/20 05:55 Globulin 2.8 g/dL (2.3-3.5) 04/27/20 05:55 Albumin/Globulin Ratio 1.2 (1.1-1.8) 04/27/20 05:55 Urine pH 6.0 (5.0-7.0) 04/27/20 06:30 Ur Specific [place] 1.020 (1.005-1.030) 04/27/20 06:30 Glucose (UA)(Auto) Negative (NEG) 04/27/20 06:30 Urine Ketones Negative (NEG) 04/27/20 06:30 Urine Blood Trace (NEG) H 04/27/20 06:30 Urine Nitrite Negative (NEG) 04/27/20 06:30 Ur Leukocyte Esterase Negative (NEG) 04/27/20 06:30 Urine Total Protein Negative (NEG) 04/27/20 06:30 Medications List Reviewed: Yes Assessment And Plan Physician Review: Patient Assessed, Agree with Above Assessment and Plan Physician Review Additional Text: Impression: Mechanical fall with noted comminuted displaced fracture of the left superior pubic ramus/comminuted fracture of the left inferior pubic ramus without displacement/acute fracture of the greater tuberosity of the left femur with noted prior open reduction internal fixation of the proximal left femur COPD exacerbation Anemia of chronic disease with iron and B12 deficiency Hypertension Hyperlipidemia GERD Depression with anxiety Dementia Plan: Mechanical fall with noted comminuted displaced fracture of the left superior pubic ramus/comminuted fracture of the left inferior pubic ramus without displacement/acute fracture of the greater tuberosity of the left femur with noted prior open reduction internal fixation of the proximal left femur: - pain controlled -Non Surgical management per orthopedics yesterday. -c/w PT/OT -follow plan for SNF COPD exacerbation: continue low dose prednisone with tapering s/p seen by pulmonary Anemia of chronic disease with iron and B12 deficiency: c/w B12 replacement , on IV iron doses now Hypertension: Continue home medication. Hyperlipidemia: Continue home medication. GERD: Continue medication. Depression with anxiety: Continue medication Dementia: stable , c/w home medication Tobacco abuse: c/w nicotine patch. Alcohol use: Continue to cessation education
[2020-04-29] MEDS ORDERED: POTASSIUM 25 MEQ EFFERV TAB PO ONE (12:00)
[2020-04-29] MEDS: ENSURE ENLIVE 237 ML CAN PO SCH (20:42)
[2020-04-29] MEDS: ATORVASTATIN 10 MG TAB PO SCH (20:42)
[2020-04-30] MEDS: HYDRALAZINE HCL 20 MG/ML VIAL IV PRN (04:34)
[2020-04-30] MEDS: TRAMADOL HCL 50 MG TAB PO PRN ×2 (04:42→23:40)
[2020-04-30 04:51] LABS: BUN Blood Urea Nitrogen 12 mg/dL (7-18); Bicarbonate 27 mmol/L (21-32); Glucose Level 113 mg/dL (74-106); Sodium Level 134 mmol/L (136-145)
[2020-04-30] MEDS: HYDROMORPHONE HCL 0.5 MG/0.5 ML INJ IV PRN (05:48)
[2020-04-30] MEDS: ARFORMOTEROL TARTRATE 15 MCG/2 ML VIAL.NEB NEB SCH ×2 (08:10→19:40)
[2020-04-30] MEDS: NICOTINE 21 MG/PAT TD SCH (08:28)
[2020-04-30] MEDS: MONTELUKAST 10 MG TAB PO SCH (08:29)
[2020-04-30] MEDS: CITALOPRAM 10 MG TABLET PO SCH (08:29)
[2020-04-30] MEDS: predniSONE 10 MG TAB PO SCH ×2 (08:29→20:15)
[2020-04-30] MEDS: FOLIC ACID 1 MG TABLET PO SCH (08:29)
[2020-04-30] MEDS: THIAMINE HCL 100 MG TABLET PO SCH (08:29)
[2020-04-30] MEDS: CYANOCOBALAMIN 1,000 MCG TAB PO SCH (08:29)
[2020-04-30] MEDS: SOD FERRIC GLUC COMPLX/SUCROSE 125 MG in NA CHLORIDE 0.9% 100 ML IV SCH (08:30)
[2020-04-30] MEDS: ENOXAPARIN 40 MG/0.4 ML SQ SCH (08:30)
[2020-04-30] MEDS: ENSURE ENLIVE 237 ML CAN PO SCH ×2 (08:30→20:16)
[2020-04-30] MEDS: FAMOTIDINE 20 MG TAB PO SCH (09:29)
--- NOTE | 2020-04-30 11:11 | P.HP ---
Patient History Reason for admission: COPD Allergies codeine Allergy (Verified 04/14/19 02:56) Rash guaifenesin [From Robitussin] Allergy (Verified 04/14/19 02:56) Itching/Hives/Rash Cough Syrup Allergy (Uncoded 10/26/18 10:13) Unknown Home Medications: Citalopram [Celexa*] 20 mg PO BEDTIME 04/27/20 Montelukast [Singulair*] 1 tab PO DAILY 04/27/20 Pravastatin Sodium 1 tab PO BEDTIME 04/27/20 - Past Medical/Surgical History Has patient received pneumonia vaccine in the past: Yes Diabetic: No -: Hypertension -: COPD -: GERD -: Hyperlipidemia -: Scoliosis -: Depression -: Dementia -: Tobacco abuse -: Alcohol use -: Chronic anemia -: Hysterectomy -: Cholecystectomy -: Cataracts surgery -: -: Left open reduction internal fixation of the left femur Psychosocial/ Personal History: Patient lives at home. - Family History Father Medical History: Hypertension, Lung disease, Cancer Notes: high cholesterol Mother Medical History: Hypertension, Lung disease, Cancer, Other (see notes) Notes: stomach/lung cancer; high cholesterol - Social History Alcohol use: No CD- Drugs: No Caffeine use: Yes Place of Residence: Home Physical Examination - Vital Signs Temperature: 98.1 F Blood Pressure: 120/63 Pulse: 82 Respirations: 18 Pulse Ox (%): 95 Assessment & Plan - Advance Directives Does patient have a Living Will: No Does patient have a Durable POA for Healthcare: No Physician Review: Patient Assessed, Agree with Above Assessment and Plan
--- NOTE | 2020-04-30 18:46 | PN ---
Date of Progress Note: 04/30/2020 History Of Present Illness: Patient was seen and examined. Chart reviewed and case discussed with Nicki Fulton and Dr. Martinez. Patient overall is doing well. States she has worked with physical therapy. St ill complaining of some pain. Code Status: Do not resuscitate. Medications: List reviewed. Physical Examination: Vital Signs: Temperature 98.1, heart rate 82, blood pressure 120/63, respirations 18, O2 95% on room air. General: Awake, alert, oriented x3. Elderly female, in some mild distress due to pain. CV: S1, S2. Regular rate and rhythm. Peripheral pulses present. RESPIRATORY: Moving air well bilaterally. No wheezing or stridor. Gastrointestinal: Abdomen is sof t, nontender, nondistended. Positive bowel sounds. Extremities: No clubbing, cyanosis, or edema. Neurologic: Nonfocal. Laboratory Data: Sodium 134, potassium 4, chloride 99, CO2 of 27, BUN 12, creatinine 0.52, glucose 1 13, calcium 9. WBC pending. Assessment And Plan: An 80-year-old female with. 1.Mechanical fall. 2.Left superior pubic ramus community fracture of the left inferior pubic ramus without displacement . Acute fracture of the greater tuberosity of the left femur. We noted prior open reduction interna l fixation of the proximal left femur and fracture of the left superior pubic ramus, comminuted displ aced. Orthopedics recommended nonsurgical management. We will continue with pain control. Continue with physical therapy and occupational therapy. Plan is for rehab placement. 3.Acute chronic obstructive pulmonary disease exacerbation, improving. Continue with low-dose predni sone and taper. Appreciate Pulmonology input. Continue nebulizers. 4.Anemia of chronic disease with iron deficiency and B12 deficiency. We will continue to monitor H and H, transfuse as needed. 5.Essential hypertension stable. 6.Mixed hyperlipidemia, We will continue home medications. 7.Gastroesophageal reflux disease without esophagitis. 8.Depression with anxiety, stable. 9.Dementia, likely Alzheimer's type without behavioral disturbance, stable. 10.Nicotine dependence with cigarette smoking. Continue with nicotine patch. Plan: Continue with deep venous thrombosis prophylaxis and discharge to rehab once accepted. SA/MODL Voice ID: [id number] Report ID: [id number]
[2020-04-30] MEDS: ATORVASTATIN 10 MG TAB PO SCH (20:15)
[2020-05-01] MEDS: HYDRALAZINE HCL 20 MG/ML VIAL IV PRN (05:13)
[2020-05-01] MEDS: TRAMADOL HCL 50 MG TAB PO PRN (05:51)
[2020-05-01] MEDS: PANTOPRAZOLE 40MG TABLET PO SCH (05:52)
[2020-05-01 05:55] LABS: Basophils % 0.2 % (0-1.3); Hematocrit 24.3 % (36.0-45.0); Lymphocytes % 12.7 % (15.3-44.8); MPV 9.2 fL (7.6-11.3); RBC Red Blood Cell Count 2.75 M/uL (3.86-4.86)
[2020-05-01] MEDS: ARFORMOTEROL TARTRATE 15 MCG/2 ML VIAL.NEB NEB SCH ×2 (07:53→20:10)
[2020-05-01] MEDS: CYANOCOBALAMIN 1,000 MCG TAB PO SCH (09:00)
[2020-05-01] MEDS: ENSURE ENLIVE 237 ML CAN PO SCH ×2 (09:00→20:31)
[2020-05-01] MEDS: FOLIC ACID 1 MG TABLET PO SCH (09:17)
[2020-05-01] MEDS: NICOTINE 21 MG/PAT TD SCH (09:17)
[2020-05-01] MEDS: predniSONE 10 MG TAB PO SCH (09:17)
[2020-05-01] MEDS: MONTELUKAST 10 MG TAB PO SCH (09:18)
[2020-05-01] MEDS: CITALOPRAM 10 MG TABLET PO SCH (09:18)
[2020-05-01] MEDS: SOD FERRIC GLUC COMPLX/SUCROSE 125 MG in NA CHLORIDE 0.9% 100 ML IV SCH (09:19)
[2020-05-01] MEDS: THIAMINE HCL 100 MG TABLET PO SCH (09:19)
[2020-05-01] MEDS: ENOXAPARIN 40 MG/0.4 ML SQ SCH (09:19)
[2020-05-01] MEDS: HYDROMORPHONE HCL 0.5 MG/0.5 ML INJ IV PRN (10:21)
[2020-05-01 18:43] LABS: Urine Appearance CLEAR; Urine Bilirubin NEGATIVE (NEG); Urine Blood 2+ (NEG); Urine Color YELLOW; Urine Glucose NEGATIVE (NEG); Urine Protein NEGATIVE (NEG); Urine Specific Gravity 1.015 (1.005-1.030); Urine pH 6.5 (5.0-7.0)
--- NOTE | 2020-05-01 19:50 | PN ---
Date of Progress Note: 05/01/2020 Subjective: Patient seen and examined. Chart reviewed and case discussed with RN. Patient did have some confusion earlier today after receiving Dilaudid. Medications: List reviewed. Physical Examination: Vital Signs: Temperature 97.8, heart rate 77, blood pressure 114/63, respirations 19, O2 sat 96% on room air. General: Awake, alert, oriented x3. Elderly female, appears to be in some mild distress, complainin g of some pain. CV: S1, S2. Regular rate and rhythm. Peripheral pulses present. Respiratory: Moving air well bilaterally. No wheezing or stridor. Gastrointestinal: Abdomen is soft, nontender, nondistended. Positive bowel sounds. Extremities: No clubbing, cyanosis, or edema. Neurologic: Nonfocal. Laboratory Data: WBC 8.3, H and H 8 and 24.3, platelets 207, neutrophils 76%. Assessment And Plan: 80-year-old female with 1.Mechanical fall. 2.Left superior pubic ramus community fracture, left anterior pubic ramus without displacement. Acu te fracture of the greater tuberosity of the left femur with prior open reduction and internal fixati on and fracture of the left superior pubic ramus comminuted, displaced. Orthopedic recommends nonsur gical management. Continue with pain control. Patient is on Dilaudid. Continue with physical thera py and occupational therapy. Patient was denied by insurance for rehab. We will do [id number]. 3.Acute chronic obstructive pulmonary disease exacerbation, improving. Continue with nebulizer marina tments. Wean off steroids. 4.Essential hypertension, stable. 5.Anemia of chronic disease with iron deficiency and B12 deficiency. Patient is receiving IV iron. Hemoglobin is stable. 6.Abnormal urine, appears grossly dark colored. We will check UA for a possible hematuria. 7.Acute metabolic encephalopathy, likely related to pain medications, steroids, combination thereof or even sundowning. Patient has been in the hospital for 4 days now. We will continue with tapering off pain medications, steroids, frequently orientation. 8.Mixed hyperlipidemia, continue home medications. 9.Gastroesophageal reflux disease without esophagitis, stable. 10.Depression with anxiety, stable. 11.Dementia Alzheimer's type without behavioral disturbance. 12.Nicotine dependence with cigarette smoking. Continue with nicotine patch as needed. Patient is on 21 mg transdermal patch. 13.Deep venous thrombosis prophylaxis with Lovenox. PLAN: We will call to schedule [id number] with [employer]. We will discuss with Case Management regard ing discharge planning. SANTIAGO Voice ID: [id number] Report ID: [id number]
[2020-05-01 20:08] LABS: Urine Bacteria >50 /HPF (<20); Urine Culture Reflex Order REFLEXED
[2020-05-01] MEDS: IPRATROPIUM BROM 0.5MG/2.5ML NEB PRN (20:10)
[2020-05-01] MEDS: ATORVASTATIN 10 MG TAB PO SCH (20:27)
[2020-05-02] MEDS: HYDRALAZINE HCL 20 MG/ML VIAL IV PRN ×2 (01:29→16:01)
[2020-05-02] MEDS: TRAMADOL HCL 50 MG TAB PO PRN ×2 (02:48→11:48)
[2020-05-02] MEDS ORDERED: MORPHINE 2 MG/ML SYR IV ONE (04:45)
[2020-05-02] MEDS: PANTOPRAZOLE 40MG TABLET PO SCH (05:35)
[2020-05-02] MEDS: IPRATROPIUM BROM 0.5MG/2.5ML NEB PRN (07:40)
[2020-05-02] MEDS: ARFORMOTEROL TARTRATE 15 MCG/2 ML VIAL.NEB NEB SCH (07:40)
[2020-05-02] MEDS: SOD FERRIC GLUC COMPLX/SUCROSE 125 MG in NA CHLORIDE 0.9% 100 ML IV SCH (08:00)
[2020-05-02] MEDS: CYANOCOBALAMIN 1,000 MCG TAB PO SCH (08:03)
[2020-05-02] MEDS: NICOTINE 21 MG/PAT TD SCH (08:03)
[2020-05-02] MEDS: FOLIC ACID 1 MG TABLET PO SCH (08:03)
[2020-05-02] MEDS: ENOXAPARIN 40 MG/0.4 ML SQ SCH (08:03)
[2020-05-02] MEDS: THIAMINE HCL 100 MG TABLET PO SCH (08:03)
[2020-05-02] MEDS: MONTELUKAST 10 MG TAB PO SCH (08:03)
[2020-05-02] MEDS: CITALOPRAM 10 MG TABLET PO SCH (08:03)
[2020-05-02] MEDS: ENSURE ENLIVE 237 ML CAN PO SCH (08:04)
[2020-05-02 08:10] VITALS: O2SAT 95
[2020-05-02] MEDS ORDERED: predniSONE 10 MG TAB PO SCH (09:00)
[2020-05-02] MEDS ORDERED: CEFTRIAXONE/SWI 1gm 1 GM/10 ML SYR IV SCH (11:45)
--- NOTE | 2020-05-02 15:30 | PN ---
Date of Progress Note: 05/02/2020 Subjective: Patient seen and examined. Chart reviewed and case discussed with RN. Patient denied b y insurance for rehab. Peer to peer is pending at this time. Otherwise, no acute events overnight. Still complaining of some pain, not as confused as yesterday. Medications: List reviewed. Physical Examination: Vital Signs: Temperature 98.4, heart rate 83, blood pressure 93/52, respirations 18, O2 95% on room air. General: Awake, alert, oriented x3. Elderly female, in some mild distress due to pain. CV: S1, S2. Regular rate and rhythm. Peripheral pulses present. Respiratory: Moving air well bilaterally. No wheezing or stridor. No use of accessory muscles. Gastrointestinal: Abdomen is soft, nontender, nondistended. Positive bowel sounds. Extremities: No clubbing, cyanosis, or edema. Neurologic: Nonfocal. Musculoskeletal: Pain with hip range of motion. Laboratory Data: UA from yesterday shows positive nitrite, 2+ leukocyte esterase, 5 to 10 rbc's, 5 t o 10 wbc's, 2+ blood. Urine culture preliminarily growing out 4+ gram-negative rods. Assessment And Plan: An 80-year-old female with: 1.Status post mechanical fall. Continue PT. 2.Left superior pubic ramus comminuted fracture, left anterior pubic ramus fracture without displace ment, acute fracture of greater tuberosity of the left femur with prior open reduction and internal f ixation. Continue with pain control. Orthopedic Surgery recommends nonsurgical management. Continu e PT/OT. 3.Acute chronic obstructive pulmonary disease exacerbation, improving. Continue nebulizers. Wean o ff steroids. 4.Acute cystitis with hematuria. We will start on Rocephin. Urine culture growing out gram-negativ e rods. We will check CBC in a.m. 5.Microscopic hematuria, likely due to Lovenox. We will monitor hemoglobin. 6.Essential hypertension. Stable. 7.Anemia of chronic disease with iron deficiency and B12 deficiency. Currently on IV iron infusions . Monitor H and H. 8.Acute metabolic encephalopathy, likely related to urinary tract infection. Should improve with an tibiotics. 9.Mixed hyperlipidemia. Continue home medications. 10.Gastroesophageal reflux disease without esophagitis. Stable. 11.Depression with anxiety. Continue SSRI. Stable. 12.Alzheimer dementia without behavioral disturbance. Stable. 13.Nicotine dependence with cigarette smoking, counseled. We will continue nicotine patch. 14.Deep venous thrombosis prophylaxis, Lovenox. Patient is high risk for deep venous thrombosis due to the fracture and her mainly nonambulatory status. We will continue Lovenox despite microscopic h ematuria. We will continue to monitor. Unfortunately, no Urology is available. May need to discont inue Lovenox if hematuria is worsened. SA/MODL Voice ID: [id number] Report ID: [id number]
[2020-05-02 18:05] VITALS: BP 157/72; TEMP 98.1
--- NOTE | 2020-05-02 19:47 | DS ---
Date of Discharge: 05/02/2020 Consultants: Dr. Yan with Orthopedic Surgery. Admitting Diagnoses: 1.Mechanical fall. 2.Comminuted displaced fracture of the left superior pubic ramus, community fracture of the left inf erior pubic ramus without displacement, acute fracture of the greater tuberosity of the left femur wi th prior open reduction and internal fixation. 3.Anemia of chronic disease with iron deficiency and B12 deficiency. 4.Essential hypertension. 5.Mixed hyperlipidemia. 6.Gastroesophageal reflux disease. 7.Depression with anxiety. 8.Dementia. Discharge Diagnoses: 1.Status post mechanical fall. 2.Left superior pubic ramus comminuted fracture, displaced, left anterior pubic ramus fracture witho ut displacement. 3.Acute fracture of the greater tuberosity of the left femur with prior open reduction and internal fixation. Nonsurgical treatment. 4.Acute chronic obstructive pulmonary disease exacerbation, improving. 5.Essential hypertension, stable. 6.Acute cystitis without hematuria secondary to gram-negative rods, will finish a course of oral ant ibiotics. 7.Anemia of chronic disease with iron deficiency and B12 deficiency. 8.Acute metabolic encephalopathy, improved. 9.Mixed hyperlipidemia, stable. 10.Gastroesophageal reflux disease without esophagitis, stable. 11.Depression with anxiety, stable. 12.Dementia, Alzheimer's type without behavioral disturbance, stable. 13.Nicotine dependence with cigarette smoking, counseled. Hospital Course: Patient is an 80-year-old female with past medical history of hypertension, hyperli pidemia, COPD, chronic anemia, tobacco use, alcohol use, comes in with a fall. Patient found to have superior pubic ramus and inferior pubic ramus fracture along with fracture of the greater tuberosity of the left femur with a prior ORIF. Patient was admitted to the hospital for pain control and furt her evaluation. Dr. Yan with Orthopedics was consulted. He recommended nonsurgical management. Steve conteh's hemoglobin remained stable. She was started on IV iron infusions. White blood cell count im proved. She was found to be somewhat confused and found to have abnormal UA on repeat UA along with some microscopic hematuria and gross hematuria. COVID screen was negative. Urine culture grew out g shirley-negative rods. ID and sensitivity are currently pending. Electrolytes were corrected. She work ed with Physical Therapy and did have some pain which was controlled with medications. Patient was i nitially referred to inpatient rehab, however, was denied by [facility] despite the [id number]. Patient was approved for senior care facility, however family including the and the daughter were against senior care facility placement. They had a bad experience previously. They understand that not all nursing facilities are the same and her experience will likely be different this time ar ound, however, they feel like as the daughter is an RN and have the grandson and granddaughter also l iving with the patient that they prefer her to be at home with home health and PT rather than at a [facility] facility. I feel that she will get more confused and they understand the risks versus benefits. Patient was then sent home with home health. Medications: As per medication reconciliation list. Followup: Follow up with primary care physician in 2-3 days. Follow up with orthopedic surgeon, Dr. Yan in 2 weeks. Return to ER for worsening condition. Patient will also likely need to have Urolo gy appointment if hematuria does not resolve, it is likely due to the Lovenox for DVT prophylaxis. Diet: Heart healthy. The patient counseled to quit drinking and smoking. She will be discharged on nicotine patches and m ultivitamins. Physical Examination: Findings please see progress note dictated on day of discharge. Total time spent discharging patient was 41 minutes. /YUMIKO Voice ID: [id number] Report ID: [id number]
--- NOTE | 2020-05-03 15:44 | P.PN ---
Date of Service: 05/03/20 Urine culture results showing resistance to cefuroxime. Ciprofloxacin called in to pharmacy. Contacted the will obtain the new prescription from the pharmacy and explained to him that patient stop the cefuroxime. voiced understanding. All questions answered
== END 2020-05-02 18:08 | disposition home health service (06) ==
LOC: ER 01:52 → INTOOBSV 07:34 → ERHOLD 07:34 → 2ND 11:12
PROVIDERS: ADMIT Family Medicine; ATTEND Family Medicine
DX: S32.592A Other specified fracture of left pubis, initial encounter for closed fracture (principal); S32.512A Fracture of superior rim of left pubis, initial encounter for closed fracture; S72.092A Other fracture of head and neck of left femur, initial encounter for closed fracture; W01.0XXA Fall on same level from slipping, tripping and stumbling without subsequent striking against object, initial encounter; J44.1 Chronic obstructive pulmonary disease with (acute) exacerbation; D63.1 Anemia in chronic kidney disease; D50.9 Iron deficiency anemia, unspecified; E53.8 Deficiency of other specified B group vitamins; G93.41 Metabolic encephalopathy; N30.01 Acute cystitis with hematuria; B96.89 Other specified bacterial agents as the cause of diseases classified elsewhere; Z16.29 Resistance to other single specified antibiotic; Z16.11 Resistance to penicillins; I10 Essential (primary) hypertension; E78.2 Mixed hyperlipidemia; K21.9 Gastro-esophageal reflux disease without esophagitis; F41.8 Other specified anxiety disorders; G30.9 Alzheimer's disease, unspecified; F02.80 Dementia in other diseases classified elsewhere, unspecified severity, without behavioral disturbance, psychotic disturbance, mood disturbance, and anxiety; G47.30 Sleep apnea, unspecified; M19.90 Unspecified osteoarthritis, unspecified site; F17.210 Nicotine dependence, cigarettes, uncomplicated; Z11.59 Encounter for screening for other viral diseases; Z66 Do not resuscitate; Z79.82 Long term (current) use of aspirin; Z79.899 Other long term (current) drug therapy
CPT/HCPCS: 96361; 93005; 87088; 85025 ×3; 81001; 87086; 80048 ×3; 36415 ×4; 83735 ×2; 84100 ×2; 85610 ×2; 80076; 85730; 87077; 87186; 85018 ×2; 85014 ×2; 81003 ×2; 84484 ×2; 82728; 82607; 83540; 80053; 83880; 84466; 70450; 72192; 71045 ×2; 73502; 73552; 97535; 97110 ×5; 97116 ×13; 97161; 97165; 97530 ×4; 97542 ×2; 94640; 94760 ×5; 94660 ×4; 51702; 96360; 99285; U0002; J0360 ×7; J3420; J1650 ×6; J2270; J2916 ×5; J1170 ×2; J7605 ×8; J0690 ×2; J0696; G0378 ×8; J7030 ×2; J2405; J2920; J7512

== ENCOUNTER 2020-05-14 10:40 | Observation (INO) | payer OTHER ==
[2020-05-14] MEDS ORDERED: NA CHLORIDE 0.9% 250 ML ONE (11:15)
[2020-05-14 11:24] LABS: Absolute Lymphocytes (CBC) 1.4 K/uL (0.7-4.9); Basophils % 1.4 % (0-1.3); Hematocrit 26.3 % (36.0-45.0); Lymphocytes % 18.4 % (15.3-44.8); MPV 8.1 fL (7.6-11.3); RBC Red Blood Cell Count 2.76 M/uL (3.86-4.86)
--- NOTE | 2020-05-14 11:26 | RAD REPORT ---
EXAM DESCRIPTION: RAD - Chest Single View - 05/14/2020 11:18 am CLINICAL HISTORY: CHEST PAIN COMPARISON: Portable April 28, 2020 TECHNIQUE: AP portable chest image was obtained 05/14/2020 11:18 am . FINDINGS: Baseline fibrotic lung pattern again noted. No peripheral mass or consolidation. No diffus e pulmonary edema pattern. Heart and vasculature are normal. No measurable pleural effusion and no pn eumothorax. No acute bony abnormality seen. No acute aortic findings suspected. Artifacts overlie the midportion of the image. IMPRESSION: Chronic interstitial lung disease not substantially different from comparison. No focal consolidation. Chronic disease could mask interstitial edema or infiltrate.
[2020-05-14 11:28] LABS: Protime INR 0.97
[2020-05-14 11:43] LABS: ALT/SGPT 16 U/L (12-78); AST/SGOT 15 U/L (15-37); Albumin 3.2 g/dL (3.4-5.0); Alkaline Phosphatase 149 U/L (45-117); BUN Blood Urea Nitrogen 20 mg/dL (7-18); Bicarbonate 28 mmol/L (21-32); Bilirubin Direct 0.1 mg/dL (0-0.2); Bilirubin Total 0.3 mg/dL (0.2-1.0); Glucose Level 122 mg/dL (74-106); Magnesium 2.3 mg/dL (1.8-2.4); NT PRO-BNP 739 pg/mL (<450); Potassium 3.3 mmol/L (3.5-5.1); Protein, Total 6.5 g/dL (6.4-8.2); Sodium Level 140 mmol/L (136-145); Troponin (Emerg Dept Use Only) < 0.02 ng/mL (0.0-0.045)
[2020-05-14 11:56] LABS: Platelet Estimate ADEQ; Urine White Blood Cell Casts OK
[2020-05-14 11:57] LABS: Anisocytosis 2+; Blood Morphology Comment NOTED (NOT SEEN)
--- NOTE | 2020-05-14 11:58 | EDPHYS ---
Physician Documentation [facility] Name: Lila Martin Age: 80 yrs Sex: Female : 1940 Arrival Date: 05/14/2020 Time: 10:42 Bed 6 Private MD: Rolando Calvo T ED Physician Bubba Newsome HPI: 05/14 11:08 This 80 yrs old Female presents to ER via Wheelchair with complaints of Arm rn Pain, chest pain, dysuria. 11:08 The patient or guardian reports chest pain that is located primarily in the substernal rn area. Onset: this morning. The pain radiates to the left arm. The chest pain is described as aching. Modifying factors: The symptoms are alleviated by nothing. the symptoms are aggravated by nothing. Severity of pain: At its worst the pain was mild in the emergency department the pain has resolved. It is unknown whether or not the patient has had similar symptoms in the past. Reports nurse at home today, does rehab, has been doing well, has not complained of anything to , but nurse asked if having chest pain/arm pain/urinary problems, and patient replied yes. Reports had chest pain for 20-30 min, radiates to left arm, feels like "cynthia horse", and now resolved. Reports mild cough but no fever. NO abd pain. + dysuria for 2 days. reports BP at home was 101 systolic. . Historical: - Allergies: 10:53 Codeine; ca1 10:53 GUAIFENESIN; ca1 - Home Meds: 10:53 pravastatin 40 mg Oral tab 1 tab nightly [Active]; omeprazole 20 mg Oral cpDR 1 cap ca1 once daily [Active]; montelukast 10 mg oral tab 1 tab once daily [Active]; Aspir-81 81 mg Oral TbEC 1 tab once daily [Active]; albuterol sulfate inhalation Inhl [Active]; - PMHx: 10:53 Anemia; COPD; Depression; GERD; GI Bleed; High Cholesterol; Hyperlipidemia; ca1 Hypertension; osteoarthritis; Sleep Apnea; - Immunization history:: Adult Immunizations up to date, Pneumococcal vaccine is up to date, Flu vaccine is up to date. - Social history:: Smoking status: Patient reports the use of cigarette tobacco products, smokes one pack cigarettes per day. - Family history:: not pertinent. - Hospitalizations: : No recent hospitalization is reported. ROS: 11:08 Constitutional: Negative for fever, chills, and weight loss, Eyes: Negative for injury, rn pain, redness, and discharge, Neck: Negative for injury, pain, and swelling, Cardiovascular: Negative for palpitations, and edema, Respiratory: Negative for wheezing, and pleuritic chest pain, Abdomen/GI: Negative for abdominal pain, nausea, vomiting, diarrhea, and constipation, MS/Extremity: + left arm pain Skin: Negative for injury, rash, and discoloration, Neuro: Negative for headache,numbness, tingling, and seizure. Exam: 11:03 ECG was reviewed by the Attending Physician. rn 11:08 Constitutional: This is a well developed, well nourished patient who is awake, alert, rn and in no acute distress. Head/Face: Normocephalic, atraumatic. ENT: MMM, no stridor Cardiovascular: Regular rate and rhythm. No pulse deficits. Respiratory: No increased work of breathing, no retractions or nasal flaring. Abdomen/GI: soft, non-tender Skin: Warm, dry MS/ Extremity: Pulses equal, no cyanosis. Neurovascular intact. Full, normal range of motion. Equal circumference. Neuro: Awake and alert, GCS 15, oriented to person, place, time, and situation. Cranial nerves II-XII grossly intact. Motor strength 5/5 in all extremities. Sensory grossly intact. Cerebellar exam normal. Vital Signs: 10:46 BP 122 / 56; Pulse 92; Resp 17 S; Temp 97.6(TE); Pulse Ox 99% on R/A; Weight 49.9 kg ca1 (R); Height 5 ft. 3 in. (160.02 cm) (R); Pain 5/10; 10:46 Body Mass Index 19.49 (49.90 kg, 160.02 cm) ca1 MDM: 10:54 Patient medically screened. rn 11:55 Differential diagnosis: acute myocardial infarction, acute pericarditis, coronary rn artery disease congestive heart failure costochondritis, esophagitis, gastritis, gastroesophageal reflux disease (GERD), pericarditis, pleurisy, pneumothorax, stable angina, unstable angina. 11:56 Data reviewed: vital signs, nurses notes, lab test result(s), EKG, radiologic studies, rn plain films, and as a result, I will admit patient. Test interpretation: by ED physician or midlevel provider: ECG, plain radiologic studies, CXR no acute findings, + chronic interstitial lung disease. Counseling: I had a detailed discussion with the patient and/or guardian regarding: the historical points, exam findings, and any diagnostic results supporting the discharge/admit diagnosis, lab results, radiology results, the need for further work-up and treatment in the hospital. Response to treatment: the patient's condition has returned to base line, and as a result, I will admit patient. Admission orders: after a detailed discussion of the patient's condition and case, the admit orders are written by me. ED course: Pt with new episode of chest pain, lasting atleast 20 min, resolved prior to arrival, + multiple co-morbidities, neg CXR/trop/ecg, will admit to Dr. August for further management and consultation with Dr. Woodard.. 11:58 ED course: No change in hemoglobin from 2.5 weeks ago, no blood in stool/dark stool. . 05/14 11:02 Order name: Basic Metabolic Panel 05/14 11:02 Order name: CBC with Diff rn 05/14 11:02 Order name: LFT's 05/14 11:02 Order name: Magnesium rn 05/14 11:02 Order name: NT PRO-BNP; Complete Time: 11:51 05/14 11:02 Order name: PT-INR; Complete Time: 11:37 05/14 11:02 Order name: Troponin (emerg Dept Use Only); Complete Time: 11:51 05/14 11:02 Order name: Urine Culture rn 05/14 11:02 Order name: Urine Microscopic Only rn 05/14 11:02 Order name: Procalcitonin; Complete Time: 11:59 05/14 11:03 Order name: Basic Metabolic Panel; Complete Time: 11:51 EDKY 05/14 11:04 Order name: CBC with Automated Diff; Complete Time: 11:59 EDKY 05/14 11:04 Order name: Liver (Hepatic) Function; Complete Time: 11:51 EDKY 05/14 11:04 Order name: Magnesium; Complete Time: 11:51 EDKY 05/14 11:02 Order name: XRAY Chest (1 view); Complete Time: 11:30 rn 05/14 11:02 Order name: EKG; Complete Time: 11:05 rn 05/14 11:02 Order name: Cardiac monitoring; Complete Time: 11: rn 05/14 11:02 Order name: EKG - Nurse/Tech; Complete Time: 11: rn 05/14 11:02 Order name: IV Saline Lock; Complete Time: 11: rn 05/14 11:02 Order name: Labs collected and sent; Complete Time: 11: rn 05/14 11:02 Order name: O2 Per Protocol; Complete Time: : rn 05/14 11:02 Order name: O2 Sat Monitoring; Complete Time: 11: rn 05/14 11:02 Order name: Urine Dipstick-Ancillary (obtain specimen); Complete Time: 12:38 rn 05/14 11:57 Order name: CBC Smear Scan; Complete Time: 11:59 EDMS 05/14 12:38 Order name: Urine Dipstick--Ancillary (enter results) em1 05/14 13:29 Order name: Urine Dipstick-Ancillary EDMS EC:03 Rate is 86 beats/min. Rhythm is regular. QRS [place] is Normal. AL interval is normal. QRS rn interval is normal. QT interval is normal. No Q waves. T waves are Normal. No ST changes noted. Clinical impression: NSR w/ Non-specific ST/T Changes. Interpreted by me. Reviewed by me. Administered Medications: 11:18 Drug: NS 0.9% 250 ml Route: IV; Rate: 1 bolus; Site: right antecubital; hb 12:20 Drug: Xopenex 1.25 mg Route: Inhalation; 12:53 Drug: Aspirin 81 mg Route: PO; hb Disposition: 05/14/20 11:58 Hospitalization ordered by Hermelinda August for Observation. Preliminary diagnosis is Chest pain, unspecified. - Bed requested for Telemetry/MedSurg (observation). - Status is Observation. hb - Condition is Stable. - Problem is new. - Symptoms have improved. Signatures: Dispatcher [employer] EDKY Linh Muniz RN RN dw Williams, Irene, RN RN Bubba Newsome MD MD rn Baxter, Heather, RN RN Acob, DANIKA Kirby RN ca1 Corrections: (The following items were deleted from the chart) 12:39 11:58 Hospitalization Ordered by Hermelinda August MD for Observation. Preliminary diagnosis dw is Chest pain, unspecified. Bed requested for Telemetry/MedSurg (observation). Status is Observation. Condition is Stable. Problem is new. Symptoms have improved. rn 13:39 12:39 05/14/2020 11:58 Hospitalization Ordered by Hermelinda August MD for Observation. hb Preliminary diagnosis is Chest pain, unspecified. Bed requested for Telemetry/MedSurg (observation). Status is Observation. Condition is Stable. Problem is new. Symptoms have improved. dw
--- NOTE | 2020-05-14 11:58 | ER ---
Nurse's Notes [facility] Name: Lila Martin Age: 80 yrs Sex: Female : 1940 Arrival Date: 05/14/2020 Time: 10:42 Bed 6 Private MD: Rolando Calvo T Diagnosis: Chest pain, unspecified Presentation: 05/14 10:46 Chief complaint: Spouse and/or significant other states: nurse visited this morning, ca1 and my lost 10 lbs in the last 2 weeks. Her BP was 101 over something. it was low. And she said that her L arm is hurting and she has some chest pains and SOB. It just started this morning. Denies injury to the arm. And yesterday, her bladder was hurting. Coronavirus screen: Proceed with normal triage. Patient denies a cough. Patient reports shortness of breath or difficulty breathing. Patient denies measured and/or subjective temperature greater than 100.4F prior to today's visit. Patient denies travel on a cruise ship or to a country the [facility] currently lists as an affected area. Patient denies contact with known and/or suspected case of COVID-19. Ebola Screen: Patient negative for fever greater than or equal to 101.5 degrees Fahrenheit, and additional compatible Ebola Virus Disease symptoms Patient denies exposure to infectious person. Patient denies travel to an Ebola-affected area in the 21 days before illness onset. No symptoms or risks identified at this time. Initial Sepsis Screen: Does the patient meet any 2 criteria? No. Patient's initial sepsis screen is negative. Does the patient have a suspected source of infection? No. Patient's initial sepsis screen is negative. Risk Assessment: Do you want to hurt yourself or someone else? Patient reports no desire to harm self or others. Onset of symptoms was May 14, 2020. 10:46 Method Of Arrival: Wheelchair ca1 10:46 Acuity: BRIDGETT 3 ca1 Historical: - Allergies: 10:53 Codeine; ca1 10:53 GUAIFENESIN; ca1 - Home Meds: 10:53 pravastatin 40 mg Oral tab 1 tab nightly [Active]; omeprazole 20 mg Oral cpDR 1 cap ca1 once daily [Active]; montelukast 10 mg oral tab 1 tab once daily [Active]; Aspir-81 81 mg Oral TbEC 1 tab once daily [Active]; albuterol sulfate inhalation Inhl [Active]; - PMHx: 10:53 Anemia; COPD; Depression; GERD; GI Bleed; High Cholesterol; Hyperlipidemia; ca1 Hypertension; osteoarthritis; Sleep Apnea; - Immunization history:: Adult Immunizations up to date, Pneumococcal vaccine is up to date, Flu vaccine is up to date. - Social history:: Smoking status: Patient reports the use of cigarette tobacco products, smokes one pack cigarettes per day. - Family history:: not pertinent. - Hospitalizations: : No recent hospitalization is reported. Screenin:01 Abuse screen: Denies threats or abuse. Denies injuries from another. Nutritional hb screening: No deficits noted. Tuberculosis screening: No symptoms or risk factors identified. Fall Risk None identified. Assessment: 11:01 General: Appears in no apparent distress. Behavior is calm, cooperative. Pain: Pain hb currently is 5 out of 10 on a pain scale. 11:01 Neuro: Level of Consciousness is awake, alert, obeys commands, Oriented to person, hb place, Appropriate for age. Cardiovascular: Reports chest pain, Capillary refill < 3 seconds Patient's skin is warm and dry. Respiratory: Airway is patent Respiratory effort is even, unlabored, Respiratory pattern is regular, symmetrical. GI: No signs and/or symptoms were reported involving the gastrointestinal system. : No signs and/or symptoms were reported regarding the genitourinary system. EENT: No signs and/or symptoms were reported regarding the EENT system. Derm: Skin is pink, warm \T\ dry. Musculoskeletal: No signs and/or symptoms reported regarding the musculoskeletal system. 12:00 Reassessment: Patient appears in no apparent distress at this time. No changes from hb previously documented assessment. Patient and/or family updated on plan of care and expected duration. Pain level reassessed. 13:00 Reassessment: Patient appears in no apparent distress at this time. No changes from hb previously documented assessment. Patient and/or family updated on plan of care and expected duration. Pain level reassessed. Vital Signs: 10:46 BP 122 / 56; Pulse 92; Resp 17 S; Temp 97.6(TE); Pulse Ox 99% on R/A; Weight 49.9 kg ca1 (R); Height 5 ft. 3 in. (160.02 cm) (R); Pain 5/10; 10:46 Body Mass Index 19.49 (49.90 kg, 160.02 cm) ca1 ED Course: 10:42 Patient arrived in ED. as 10:42 Rolando Calvo MD is Private Physician. as 10:50 Triage completed. ca1 10:53 Arm band placed on right wrist. ca1 10:54 Bubba Newsome MD is Attending Physician. rn 11:01 Patient has correct armband on for positive identification. Bed in low position. Call hb light in reach. 11:11 Inserted saline lock: 20 gauge in right antecubital area, using aseptic technique. hb ,using aseptic technique. by [place] Blood collected. 11:18 Lyric Thompson, RN is Primary Nurse. hb 11:18 XRAY Chest (1 view) In Process Unspecified. EDMS 11:57 Hermelinda August MD is Hospitalizing Provider. rn 11:59 Patient has correct armband on for positive identification. Placed in gown. Side rails mh5 up X2. Adult w/ patient. Warm blanket given. Pillow given. child monitor on. Pulse ox on. NIBP on. 12:00 Initial lab(s) drawn, by ct, sent to lab. EKG done, by ED staff, reviewed by Bubba Newsome MD. 12:39 Urine collected: straight cath specimen, clear. Inserted saline lock: 20 gauge in right mh5 forearm, using aseptic technique. Blood collected. 12:40 Urine Dipstick--Ancillary (enter results) Sent. 5 12:40 Urine Culture Sent. 5 13:38 No provider procedures requiring assistance completed. Patient admitted, IV remains in hb place. Administered Medications: 11:18 Drug: NS 0.9% 250 ml Route: IV; Rate: 1 bolus; Site: right antecubital; hb 12:20 Drug: Xopenex 1.25 mg Route: Inhalation; iw 12:53 Drug: Aspirin 81 mg Route: PO; hb Outcome: 11:58 Decision to Hospitalize by Provider. rn 13:38 Admitted to Tele accompanied by tech, family with patient, via wheelchair, Report hb called to Sharon GARNICA 13:38 Condition: stable 13:38 Instructed on the need for admit, Demonstrated understanding of instructions. 13:39 Patient left the ED. hb Signatures: Dispatcher [employer] EDMS Hortencia Juarez Irene, RN RN Bubba Seay MD MD rn Baxter, Heather, RN RN Parul Torres [facility] Mirta Gamboa, RN RN ca1
--- OUTSIDE RECORDS SUMMARY | 2020-05-14 12:16 | XMS REPORT | Continuity of Care Document ---
:1940 Author Organization [facility] t Address [address] [place] [address] Care Team Providers Name Role Phone Javon [...] Type Clinicians Facility Department ID 2020-01-10 2020-01-10 [facility] [id number] 09:06:00 13:50:00 Encounter Trey Machado [id number] Deb [id number] Surgical [phone] [place] 071 2020-01-10 2020-01-10 Orders Doctor LETHA [id number] 00:00:00 00:00:00 Only Unassigned, TIGRE [id number] [place] [facility] [phone] [id number] 2020-01-09 2020-01-09 Detail Assembler Sumeet Kumar [facility] [id number] 10:21:59 10:36:59 Visit Lab Aj Machado [id number] [place] [id number] [facility] [phone] [address] Results This patient has no known results.
[2020-05-14] MEDS ORDERED: ASPIRIN 81 MG CHEWABLE TABLET ONE (13:03)
[2020-05-14] MEDS ORDERED: LEVALBUTEROL 1.25 MG/3 ML NEB ONE (13:03)
[2020-05-14 13:06] LABS: Urine Bacteria <20 /HPF (<20); Urine Culture Reflex Order NOT NEEDED; Urine RBC <5 /HPF (NONE SEEN)
[2020-05-14 13:29] LABS: Urine Blood TRACE (NEG); Urine Glucose NEGATIVE (NEG); Urine Protein NEGATIVE (NEG); Urine Specific Gravity 1.015 (1.005-1.030); Urine pH 5.5 (5.0-7.0)
[2020-05-14 13:47] VITALS: BMI 19.5
[2020-05-14] MEDS ORDERED: MORPHINE 2 MG/ML SYR IV PRN (14:19)
[2020-05-14] MEDS ORDERED: NITROGLYCERIN 0.4 MG/TAB SL PRN (14:19)
[2020-05-14] MEDS ORDERED: ACETAMINOPHEN 500 MG TAB PO PRN (14:19)
[2020-05-14] MEDS: CEFTRIAXONE/SWI 1gm 1 GM/10 ML SYR IVP SCH (16:28)
--- NOTE | 2020-05-14 20:38 | HP ---
Date of Admission: 05/14/2020 Code Status: Full. Chief Complaint: Chest pain. History Of Present Illness: Patient is an 80-year-old female with past medical history of dementia, depression and anxiety, hyperlipidemia, anemia, COPD, GERD, continue tobacco use, who was recently ad mitted to the hospital for a fall and was found to have fractures of the femur as well as left superi or and inferior pubic ramus without displacement. Patient did not have any surgery at that time and was managed nonsurgically. She was discharged home with home health as family and the patient refuse d [facility]ci facility placement. She had been denied by inpatient rehab. Patient has been doin g well with her physical therapy, however, was noted by the home health nurse to feel a little bit le thargic. Patient did complain of some urinary burning sensation as well as pain in her left arm hansel g with her neck and chest. Symptoms were constant, moderate, progressively worsening. She denied an y fever, chills, cough. No nausea or vomiting. Patient denies any alleviating factors. Patient cam e into the ER for further evaluation. Her workup revealed potassium of 3.3. Initial cardiac enzyme was negative. EKG was nonspecific. Her vital signs were stable. She was afebrile. The patient ref erred for admission for chest pain. When seen in the ER, she was awake, alert, oriented x3, in some mild distress. Past Medical History: Hypertension, COPD, GERD, hyperlipidemia, scoliosis, depression, anxiety, jenna ntia, chronic anemia. Surgical History: Hysterectomy, cholecystectomy, cataract surgery, , ORIF of the left femur . Allergies: TO CODEINE CAUSES RASH AND GUAIFENESIN ALSO CAUSES ITCHING, HIVES, AND RASH. Medications: As per medication reconciliation list. Social History: Patient smokes daily. Denies any significant alcohol use. She is , lives at home. Has good social support. Family History: Father had hypertension, lung disease, cancer and high cholesterol. Mother had hype rtension, lung disease, stomach and lung cancer as well as high cholesterol. Review of Systems: Ten-point system reviewed, negative except as per HPI. Physical Examination: Vital Signs: Blood pressure 122/56, pulse 92, respirations 17, temperature 97.6, O2 99%. BMI is 19. General: Awake, alert, oriented x3. Elderly female, hard of hearing, in some mild distress due to c hest pain. HEENT: Normocephalic, atraumatic. PERRLA, EOMI. Face is covered with mask. Oropharynx examination is deferred. Conjunctivae anicteric. Neck: Supple. No JVD. Trachea midline. CV: S1, S2. Regular rate and rhythm. Peripheral pulses weak. Respiratory: Moving air well bilaterally. No wheezing or stridor. No use of accessory muscles. Gastrointestinal: Abdomen is soft, nontender, nondistended. Positive bowel sounds. No guarding or rigidity. Extremities: No clubbing, cyanosis, or edema. No calf tenderness. Neuro: Cranial nerves 3 through 12 intact grossly. No focal neurological deficits. Speech is cody l. Strength is symmetric, bilateral upper and lower extremities. Sensation intact to light touch. Skin: No rashes. Normal skin turgor. Patient does have ecchymosis around the left lateral upper ey elid from rubbing this morning. Psych: Mood is okay. Affect is full. Insight and judgment are good. Laboratory Data: WBC 7.3, H and H 8.6 and 26.3, platelets 385, neutrophils 71%. INR 0.97. Sodium 1 40, potassium 3.3, chloride 107, CO2 of 28, BUN 20, creatinine 0.81, glucose 122, calcium 8.8, magnes ium 2.3, AST 15, ALT 16, alkaline phosphatase 149. Troponin less than 0.02. BNP 739. Albumin 3.2. Procalcitonin less than 0.05. WBC is pending at this time. Chest x-ray personally reviewed shows c hronic interstitial changes, not substantially different from comparison, no focal consolidation, chr onic disease with desiree interstitial edema or infiltrate. Assessment And Plan: 80-year-old female with 1.Chest pain, rule out acute coronary syndrome. We will start on chest pain guidelines, beta-blocke r, NKECHI inhibitor, statin, and aspirin. Consult Cardiology. Obtain echocardiogram. 2.Recent fracture of the greater tuberosity of the left femur with prior open reduction and internal fixation and fracture of the left superior pubic ramus and left anterior pubic ramus with the former displaced. We will continue with physical therapy, nonsurgical. Patient to follow up with Dr. Yan as an outpatient. 3.Acute chronic obstructive pulmonary disease, chronic bronchitis. We will continue with albuterol as needed. 4.Essential hypertension, stable. 5.Anemia of chronic disease with iron deficiency and B12 deficiency. We will continue replacement. 6.Mixed hyperlipidemia, continue statin. 7.Gastroesophageal reflux disease without esophagitis, stable. Continue PPI. 8.Depression with anxiety, stable. 9.Dementia, Alzheimer's type without behavioral disturbance, stable. 10.Nicotine dependence with cigarette smoking, counseled. PLAN: Admit patient to Med-Surg, place as observation. Likely discharge in a.m. if acute coronary syndrome is ruled out and cleared by Cardiology. /YUMIKO Voice ID: [id number]
[2020-05-14] MEDS: METOPROLOL TAR 25 MG TAB PO SCH (20:58)
[2020-05-14] MEDS ORDERED: ATORVASTATIN 40 MG TAB PO SCH (21:00)
[2020-05-15 03:43] LABS: Absolute Lymphocytes (CBC) 1.3 K/uL (0.7-4.9); Basophils % 1.6 % (0-1.3); Lymphocytes % 19.1 % (15.3-44.8); MPV 7.9 fL (7.6-11.3); RBC Red Blood Cell Count 2.38 M/uL (3.86-4.86)
[2020-05-15 03:57] LABS: BUN Blood Urea Nitrogen 23 mg/dL (7-18); Bicarbonate 27 mmol/L (21-32); Glucose Level 100 mg/dL (74-106); HDL Cholesterol 62 mg/dL (40-60); LDL Cholesterol, Calculated 59 (<130); Potassium 3.9 mmol/L (3.5-5.1); Sodium Level 141 mmol/L (136-145)
--- NOTE | 2020-05-15 06:14 | CON ---
Date of Consultation: 05/14/[address] August on 05/14/2020. Reason For Consultation: Chest pain and shortness of breath. History Of Present Illness: The patient is an 80-year-old white woman, she is known to me from my pr actice. I have seen her for few years, in fact she had a normal heart catheterization about 3 years ago. She recently underwent cataract surgery by Dr. Shaw. Has done well in general. Has been h aving problems more of a shortness of breath and chest pain. She described it as tightness with and without exertion, had diaphoresis. No nausea, vomiting. Denied PND, orthopnea. Denied pedal edema. Denied palpitations. Denied syncope. Has not had any fever or chills. Past Medical History: Include anemia, COPD, depression, GI bleed, dyslipidemia, hypertension, sleep apnea, osteoarthritis. Allergies: CODEINE AND GUAIFENESIN. Medications: At home include, 1.Pravastatin. 2.Omeprazole. 3.Singulair. 4.Aspirin. 5.Albuterol sulfate inhaler. Review of Systems: Negative. Social History: Negative. Family History: Noncontributory. Physical Examination: General: She weighed 110 pounds, blood pressure is 146/67. She was afebrile. She was in sinus rhyt hm. O2 saturation was 97% on room air. HEENT: Negative. Neck: Supple without any bruit, lymphadenopathy, JVD, or thyromegaly. Chest: Clear to auscultation and percussion. Cardiac: Revealed a regular rhythm and rate. No murmurs, gallops, or rubs. Abdomen: Benign. Extremities: Revealed trace edema. Skin: Dry and intact. Neurologic: Nonfocal. Diagnostic Data: Her creatinine was 0.61. Her hemoglobin was 7.5. Her troponin was negative. Her BNP was 739. Impression And Plan: Chest pain and shortness of breath, certainly could be secondary to coronary ar ludy disease or acute congestive heart failure, probably diastolic. She has had a catheterization 3 years ago that was normal. I would go ahead and do an echocardiogram and a Lexiscan on her to see wh at we are dealing with. She is already on Lipitor, a beta-brandy. She is receiving antibiotics as well. Her anemia is obviously very concerning and could be contributing to all her symptoms. That s hould be worked up. This is new onset. Her other problems including hypertension and dyslipidemia s eem to be stable at this point. I will continue to follow her along. JAYLIN/YUMIKO Voice ID: [id number] Report ID: [id number]
[2020-05-15] MEDS ORDERED: REGADENOSON 0.4 MG/5 ML SYR IV ONE (08:05)
[2020-05-15 08:47] VITALS: O2SAT 96
[2020-05-15] MEDS: CEFTRIAXONE/SWI 1gm 1 GM/10 ML SYR IVP SCH (08:52)
[2020-05-15] MEDS: METOPROLOL TAR 25 MG TAB PO SCH (08:53)
[2020-05-15] MEDS ORDERED: lisinopriL 10 MG TAB PO SCH (09:00)
[2020-05-15] MEDS ORDERED: ASPIRIN EC 81 MG TAB PO SCH (09:00)
[2020-05-15] MEDS ORDERED: ENOXAPARIN 40 MG/0.4 ML SQ SCH (09:00)
--- NOTE | 2020-05-15 12:25 | EKG ---
Test Date: 2020-05-14 Test Time: 11:01:57 Field Agronomist: BARBRA MEASUREMENT RESULTS: Intervals: Rate: 86 MA: 172 QRSD: 94 QT: 394 QTc: 471 [place]: P: 56 MA: 172 QRS: 38 T: 90 INTERPRETIVE STATEMENTS: Sinus rhythm with premature atrial complexes Septal infarct, age undetermined Abnormal ECG Compared to ECG 04/27/2020 06:08:29 Atrial premature complex(es) now present Myocardial infarct finding now present Prolonged QT interval no longer present Electronically Signed On 05-15-20 12:22:31 CDT by Patel Woodard
--- NOTE | 2020-05-15 12:27 | RAD REPORT ---
EXAM DESCRIPTION: NM - Rest Stress Cardiac Imaging - 05/15/2020 12:00 pm CLINICAL HISTORY: CP Chest pain. COMPARISON: No comparisons TECHNIQUE: The patient was administered approximately 10mCi of Tc 99m Sestamibi prior to resting SPE CT imaging of the heart. The patient was then administered approximately 30 mCi of Tc 99m Sestamibi f ollowing exercise or pharmacologic stress. Multiplanar SPECT images were reviewed. FINDINGS: No stress induced ischemic defect is seen to suggest stress induced ischemia. Diminished r adiopharmaceutical accumulation with rest and stress in the inferior wall is probably related to diap hragmatic attenuation artifact. The end diastolic volume is 98 ml, the end systolic volume is 34 ml, and the ejection fraction is 65 %. IMPRESSION: No stress induced ischemia.
--- NOTE | 2020-05-15 12:45 | ECHO ---
HEIGHT: 5 ft 3 in WEIGHT: 110 lb 0.171 oz DATE OF STUDY: 05/15/[address]: Hermelinda August MD 2-DIMENSIONAL: YES M.MODE: YES DOPPLER: YES COLOR FLOW: YES TDS: YES PORTABLE: NO DEFINITY: NO BUBBLE STUDY: NO DIAGNOSIS: CHEST PAIN CARDIAC HISTORY: CATHERIZATION: NO SURGERY: NO PROSTHETIC VALVE: NO PACEMAKER: NO MEASUREMENTS (cm) DIASTOLIC (NORMALS) SYSTOLIC (NORMALS) IVSd (0.6-1.2) LA Diam (1.9-4.0) LVEF NORMAL% LVIDd (3.5-5.7) LVIDs (2.0-3.5) %FS % LVPWd (0.6-1.2) Ao Diam 3.4 (2.0-3.7) 2 DIMENSIONAL ASSESSMENT: RIGHT ATRIUM: NORMAL LEFT ATRIUM: NORMAL RIGHT VENTRICLE: NORMAL LEFT VENTRICLE: NORMAL TRICUSPID VALVE: NORMAL MITRAL VALVE: NORMAL PULMONIC VALVE: NORMAL AORTIC VALVE: SCLEROSIS PERICARDIAL EFFUSION: NONE AORTIC ROOT: NORMAL LEFT VENTRICULAR WALL MOTION: NORMAL. DOPPLER/COLOR FLOW: NORMAL. COMMENTS: AORTIC SCLEROSIS WITH NO STENOSIS. NORMAL LEFT VENTRICULAR EJECTION FRACTION AND SIZE. NO WALL MOTION ABNORMALITY. TECHNICALLY DIFFICULT STUDY. TECHNOLOGIST: LINDA LOPEZ
--- NOTE | 2020-05-15 13:02 | TREADPHA ---
DX: CHEST PAIN Date of Study: 05/15/2020 Ht: 5' 3 " Wt: 110 lb 0.171 oz Consulting Physician: ARSITIDES MEDICATIONS: TYLENOL, ASPIRIN, LIPITOR, LOVENOX, LOPRESSOR, PRINIVIL, NITROSTAT, PROVASTATIN, PRILOSEC, ALBUTEROL HISTORY: 80 YEAR OLD FEMALE WITH HISTORY OF GERD, COPD, GI BLEED, HIGH CHOLESTEROL, HYPERTENSION, SLEEP APNEA, ADMITTED FOR CHEST PAIN PHYSICIAL EXAMINATION: RESTING B.P.: 146/59 RESTING H.R.: 65 RESTING EKG: SINUS RHYTHM, OLD ANTERIOR MYOCARDIAL INFARCTION PROTOCOL: LEXISCAN EXERCISE TIME: 3:30 B.P. AT PEAK STRESS: 93/52 IMPRESSION: LEXISCAN STRESS TEST PERFORMED. CARDIOLITE INJECTED PER PROTOCOL. NO SUPRA VENTRICULAR TACHYCARIDA, NO VENTRICULAR TACHYCARDIA, NO ARRHYTHMIA NOTED. PATIENT DENIED CHEST PAIN. RESPIRATIONS NON LABORED. REPEAT BLOOD PRESSURE 119/65. SEE NUCLEAR MEDICINE REPORT.
[2020-05-15 15:54] LABS: Hematocrit 23.4 % (36.0-45.0)
[2020-05-15 16:57] VITALS: BP 130/68; TEMP 98
[2020-05-15] MEDS ORDERED: ALBUTEROL INHALER 60 PUFF/8 GM IH SCH (21:00)
[2020-05-15] MEDS ORDERED: PANTOPRAZOLE 40MG TABLET PO SCH (21:00)
[2020-05-15] MEDS ORDERED: HOME MED 1 EA UNK (Omeprazole [Omeprazole] 1 TAB) PO SCH (21:00)
[2020-05-15] MEDS ORDERED: DOCUSATE NA 100 MG CAP PO SCH (21:00)
--- NOTE | 2020-05-15 21:36 | PN ---
Date of Progress Note: 05/15/2020 Ms. Martin was admitted yesterday for chest pain, shortness of breath. Today, she is asymptomatic. He r vital signs were stable. She was afebrile. She underwent an echocardiogram, which was normal; Héctor iscan, which was normal. I would continue her present regimen. I think her pain is most likely musc uloskeletal. She can go home whenever it is okay with her primary care physician. I will see her in the office as an outpatient. JAYLIN/YUMIKO Voice ID: [id number] Report ID: [id number]
--- NOTE | 2020-05-16 03:07 | DS ---
Date of Discharge: 05/15/2020 Consultants: Dr. Woodard with Cardiology. Procedure: Cardiac stress test on 05/15/2020 and negative for any stress-induced ischemia. Discharge Diagnoses: 80-year-old female with: 1.Chest pain, acute coronary syndrome ruled out. 2.Hypokalemia, replaced. 3.Recent fracture of the greater tuberosity of the left femur with prior open reduction and internal fixation, left superior pubic ramus displaced fracture, and left anterior pubic ramus nondisplaced f racture with nonsurgical treatment, ambulating well. 4.Chronic obstructive pulmonary disease, chronic bronchitis, stable on albuterol as needed. 5.Essential hypertension, stable. 6.Iron deficiency anemia and B12 deficiency. We will continue with iron supplements. Iron panel fr om 04/27/2020 showed low iron levels. Patient received iron during previous hospitalization. We mando l continue with supplements. We will check. 7.Hyperlipidemia, on statin. 8.Gastroesophageal reflux disease without esophagitis, stable. 9.Depression with anxiety, stable. 10.Dementia, Alzheimer's type without behavioral disturbance, stable. 11.Nicotine dependence with cigarette smoking counseled. Hospital Course: Patient is an 80-year-old female with multiple comorbid conditions including tyler ia, depression, hyperlipidemia, anemia of iron deficiency and B12 deficiency, COPD, GERD, continues t o smoke, comes in with chest pain. Patient's workup revealed a potassium of 3.3. Her cardiac enzyme s were negative. ACS was ruled out. She was admitted for further evaluation. She was seen by cardi ologist, Dr. Woodard, who recommended cardiac stress test which was negative. Echocardiogram was don e, which showed normal ejection fraction, aortic sclerosis with no stenosis. There was no wall motio n abnormality. Patient's chest pain resolved. She did have a hemoglobin dropped from 8.6 to 7.5. H emoccult was ordered, still pending at this time. It should be noted that the patient was recently i n the hospital on 04/27/2020 with fracture of the superior and inferior pubic ramus and the femur, wh ich was managed nonsurgically by Orthopedics. Her hemoglobin around that time was around 8.1 to 8.4. Repeat hemoglobin was ordered and the patient will be continued on supplemental iron. Patient's an emia panel from 04/27/2020 did show low iron. Her other comorbid conditions remained stable. Her UA showed trace leukocyte esterase. However, the urine culture grew out showed no growth. She was sta rted on Rocephin prophylactically. She will not need any oral antibiotics to go home with as the cul tures are negative. Patient's symptoms improved. She was then cleared for discharge and was sent ho ks in a stable condition. Activity: Ambulate with assist. Fall precautions. Diet: Heart healthy. Followup: Follow up with primary care physician in 2 to 3 days. Follow up with retrieval specialist, Dr. Sina senior in 2 weeks. Repeat hemoglobin level in 1 week. Establish care with Hematology. Return to ER for worsening condition. Medications: As per medication reconciliation list. Physical Examination: General: Awake, alert, and oriented x3. Elderly female, not in any acute distress. CV: S1, S2. Respiratory: Moving air well bilaterally. Abdomen: Soft, nontender, nondistended. Positive bowel sounds. Extremities: No clubbing, cyanosis, or edema. Neurologic: Nonfocal. SA/MODL Voice ID: [id number] Report ID: [id number]
[2020-05-16] MEDS ORDERED: MONTELUKAST 10 MG TAB PO SCH (09:00)
== END 2020-05-15 17:33 | disposition home or self-care (01) ==
LOC: ER 10:40 → ERHOLD 12:02 → 2ND 13:14
PROVIDERS: ADMIT Family Medicine; ATTEND Family Medicine
DX: R07.89 Other chest pain (principal); E87.6 Hypokalemia; S72.002A Fracture of unspecified part of neck of left femur, initial encounter for closed fracture; S32.512A Fracture of superior rim of left pubis, initial encounter for closed fracture; S32.592A Other specified fracture of left pubis, initial encounter for closed fracture; J44.9 Chronic obstructive pulmonary disease, unspecified; I10 Essential (primary) hypertension; E78.2 Mixed hyperlipidemia; K21.9 Gastro-esophageal reflux disease without esophagitis; F41.8 Other specified anxiety disorders; G30.9 Alzheimer's disease, unspecified; F02.80 Dementia in other diseases classified elsewhere, unspecified severity, without behavioral disturbance, psychotic disturbance, mood disturbance, and anxiety; R06.02 Shortness of breath; R05 Cough; Z20.828 Contact with and (suspected) exposure to other viral communicable diseases; R30.0 Dysuria; F17.210 Nicotine dependence, cigarettes, uncomplicated; D63.1 Anemia in chronic kidney disease; D50.9 Iron deficiency anemia, unspecified; E53.8 Deficiency of other specified B group vitamins; I35.8 Other nonrheumatic aortic valve disorders; R94.31 Abnormal electrocardiogram [ECG] [EKG]; I49.1 Atrial premature depolarization; G47.00 Insomnia, unspecified; M19.90 Unspecified osteoarthritis, unspecified site; Z79.82 Long term (current) use of aspirin; Z79.899 Other long term (current) drug therapy; W19.XXXA Unspecified fall, initial encounter
CPT/HCPCS: 93005; 93017; 93306; 87088; 85025 ×2; 80048 ×2; 36415 ×2; 83735; 85610; 80061; 80076; 85018; 85014; 84484 ×3; 84145; 83880; 71045; 97116; 97161; 97530; 94760 ×3; 78452; 96374; 99285; U0002; J1650; J2785; J0696 ×2; J7030; A9500; G0378 ×3; 81003; 81015; 87086

== ENCOUNTER 2021-02-06 19:52 | Emergency (ER) | payer OTHER ==
--- OUTSIDE RECORDS SUMMARY | 2021-02-06 19:55 | XMS REPORT | Continuity of Care Document ---
:1940 Author Organization [facility] t Address [address] [place] [address] Care Team Providers Name Role Phone Javon [...] Type Clinicians Facility Department ID 2020-01-10 2020-01-10 [facility] [id number] 09:06:00 13:50:00 Encounter Trey Machado [id number] Deb [id number] Surgical [id number] [place] 071 2020-01-10 2020-01-10 Orders Doctor LETHA [id number] 00:00:00 00:00:00 Only Unassigned, TIGRE [id number] [place] [facility] [id number] 2020-01-09 2020-01-09 [place] [employer] Sumeet Kumar [facility] [id number] 10:21:59 10:36:59 Visit Lab Aj Machado [id number] [place] [id number] [facility] [phone] [facility] [address] Results This patient has no known results.
[2021-02-06 20:40] LABS: Absolute Lymphocytes (CBC) 1.1 K/uL (0.7-4.9); Basophils % 0.9 % (0-1.3); Hematocrit 40.5 % (36.0-45.0); Lymphocytes % 17.2 % (15.3-44.8); MPV 10.8 fL (7.6-11.3); RBC Red Blood Cell Count 4.22 M/uL (3.86-4.86)
--- NOTE | 2021-02-06 20:53 | RAD REPORT ---
EXAM DESCRIPTION: CT - CTHCSPWOC - 02/06/2021 8:23 pm CLINICAL HISTORY: traumafall with head and neck injury COMPARISON: Head C Spine Mpr Wo Con dated 04/13/2019 TECHNIQUE: Axial 5 mm thick images of the head were obtained. Axial 2 mm thick images of the cervic al spine were obtained with sagittal and coronal reconstruction images generated and reviewed. All CT scans are performed using dose optimization technique as appropriate and may include automated exposure control or mA/KV adjustment according to patient size. FINDINGS: No intracranial hemorrhage, mass, edema or acute intracranial finding. No acute cortical b ased infarction, cortical edema or sulcal effacement. The patient has atrophy and chronic ischemic ch anges are not substantially different from comparison. No extra-axial fluid collections. Mastoid air cells and paranasal sinuses are clear. No globe or orbit abnormality seen. Cervical bodies are normal in height. Sclerotic focus in the anterior inferior C4 body is chronic. C6 -7 disc space narrowing present. No other disc space narrowing. No acute fracture change. No patholog ic bone process. Patient has advanced degenerative change at the dens anterior arch C1 level. The inc omplete union of the anterior arch C1 is not an acute finding. There is significant asymmetry created by head tilt. Central canal detail is inherently limited. No paraspinal mass or hematoma. IMPRESSION: Atrophy and chronic ischemic change similar to comparison. No acute intracranial finding . Cervical spine degenerative change similar to 2019. No acute finding.
--- NOTE | 2021-02-06 20:54 | RAD REPORT ---
EXAM DESCRIPTION: RAD - Chest Single View - 02/06/2021 8:42 pm CLINICAL HISTORY: TRAUMA, fall with chest pain COMPARISON: Single-view chest April 2020 TECHNIQUE: AP portable chest image was obtained 02/06/2021 8:42 pm . FINDINGS: Lungs are extensively fibrotic. Skin fold artifacts are present over the right chest. No p ulmonary contusion, failure or acute finding identifiable in the parenchyma. Mediastinum is distorted by rotation. Patient has prominent scoliotic and degenerative change in the spine. Bones diffusely o steopenic limiting ability to detect rib fracture. Heart and vasculature are normal. No measurable pl eural effusion and no pneumothorax. No acute bony abnormality seen. Dense aortic calcifications are p resent. IMPRESSION: No acute cardiopulmonary process. Bones are diffusely osteopenic limiting ability to detect rib fractures.
--- NOTE | 2021-02-06 20:56 | RAD REPORT ---
EXAM DESCRIPTION: RAD - Pelvis - 02/06/2021 8:42 pm CLINICAL HISTORY: TRAUMA, fall with pelvic pain COMPARISON: CT pelvis April 2020 TECHNIQUE: AP imaging of the pelvis was obtained. FINDINGS: Bones are diffusely osteopenic. The osteopenia and dense bowel content significantly limit assessment of the lower lumbar spine, bilateral sacral ala and the left iliac crest. Old superior an d inferior pubic rami fractures are noted. Left fracture fixation hardware in place. No acute proxima l left femur finding. No dislocation or fracture of the proximal right femur. IMPRESSION: Exam is limited due to osteopenia and dense bowel content. No acute fracture identifiable.
--- NOTE | 2021-02-06 20:57 | RAD REPORT ---
EXAM DESCRIPTION: RAD - Tib Fib Right - 02/06/2021 8:42 pm CLINICAL HISTORY: trauma, fall with leg pain COMPARISON: No comparisons FINDINGS: Bones are diffusely osteopenic. No acute fracture changes are identifiable. No pathologic bone process. No knee joint effusion confirmed. No air or foreign body in the soft tissues. There is no dislocation or periosteal reaction noted. No acute or suspicious bony finding. No foreign body or other soft tissue abnormality. IMPRESSION: Negative right tibia & fibula examination.
[2021-02-06 20:58] LABS: BUN Blood Urea Nitrogen 14 mg/dL (7-18); Bicarbonate 30 mmol/L (21-32); Glucose Level 111 mg/dL (74-106); NT PRO-BNP 1060 pg/mL (<450); Sodium Level 139 mmol/L (136-145); Troponin (Emerg Dept Use Only) < 0.02 ng/mL (0.0-0.045)
[2021-02-06 20:59] LABS: Potassium 3.2 mmol/L (3.5-5.1)
[2021-02-06 21:00] LABS: Protime INR 0.97
[2021-02-06] MEDS ORDERED: ACETAMINOPHEN 500 MG TAB ONE (21:23)
[2021-02-06 21:35] LABS: ALT/SGPT 19 U/L (12-78); AST/SGOT 16 U/L (15-37); Albumin 3.3 g/dL (3.4-5.0); Bilirubin Direct < 0.1 mg/dL (0-0.2); Bilirubin Total 0.3 mg/dL (0.2-1.0)
[2021-02-06 21:36] LABS: Alkaline Phosphatase ND U/L (45-117)
[2021-02-06 22:54] LABS: Urine Blood 1+ (NEG); Urine Glucose NEGATIVE (NEG); Urine Protein NEGATIVE (NEG); Urine Specific Gravity 1.015 (1.005-1.030)
--- NOTE | 2021-02-07 00:20 | EDPHYS ---
Physician Documentation [facility] Name: Lila Martin Age: 80 yrs Sex: Female : 1940 Arrival Date: 02/06/2021 Time: 19:58 Bed 2 Private MD: ED Physician Sherman Dennis HPI: 02/06 20:41 This 80 yrs old Female presents to ER via EMS with complaints of Fall Injury. mh7 20:41 Details of fall: The patient fell from an upright position, while standing. Onset: The mh7 symptoms/episode began/occurred just prior to arrival, today. Associated injuries: The patient sustained injury to the head, contusion, pain, injury to the chest, contusion, pain with movement, tenderness, right leg, contusion. Severity of symptoms: At their worst the symptoms were moderate, earlier today, in the emergency department the symptoms have improved, moderately. 02/07 00:12 Patient reports slip and fall after getting out of shower. Denies any LOC. States mh7 generalized fatigue/weakness after fall. Denies any complaints prior to fall including headache, chest pain, abdominal pain, SOB, fever, cough, nausea, vomiting, dizziness, numbness/tingling, or weakness.. Historical: - Allergies: 02/06 20:05 Codeine; rr5 20:05 GUAIFENESIN; rr5 - Home Meds: 20:05 pravastatin oral oral [Active]; Omeprazole Oral [Active]; Meclizine Oral [Active]; rr5 - PMHx: 20:05 Anemia; COPD; Depression; GERD; GI Bleed; High Cholesterol; Hyperlipidemia; rr5 Hypertension; osteoarthritis; Sleep Apnea; hyperbulimia; - Immunization history:: Adult Immunizations up to date. - Social history:: Smoking status: Patient reports the use of cigarette tobacco products, smokes one pack cigarettes per day. - Immunization history: Last tetanus immunization: unknown. ROS: 20:42 Constitutional: Negative for fever, chills, and weight loss, Eyes: Negative for injury, mh7 pain, redness, and discharge, ENT: Negative for injury, pain, and discharge, Respiratory: Negative for shortness of breath, cough, wheezing, and pleuritic chest pain, Abdomen/GI: Negative for abdominal pain, nausea, vomiting, diarrhea, and constipation, Back: Negative for injury and pain, : Negative for injury, bleeding, discharge, and swelling, Psych: Negative for depression, anxiety, suicide ideation, homicidal ideation, and hallucinations, Allergy/Immunology: Negative for hives, rash, and allergies, Endocrine: Negative for neck swelling, polydipsia, polyuria, polyphagia, and marked weight changes, Hematologic/Lymphatic: Negative for swollen nodes, abnormal bleeding, and unusual bruising. Exam: 20:42 Constitutional: This is a well developed, well nourished patient who is awake, alert, mh7 and in no acute distress. Head/Face: Normocephalic, atraumatic. Eyes: Pupils equal round and reactive to light, extra-ocular motions intact. Lids and lashes normal. Conjunctiva and sclera are non-icteric and not injected. Cornea within normal limits. Periorbital areas with no swelling, redness, or edema. ENT: Nares patent. No nasal discharge, no septal abnormalities noted. Tympanic membranes are normal and external auditory canals are clear. Oropharynx with no redness, swelling, or masses, exudates, or evidence of obstruction, uvula midline. Mucous membranes moist. Neck: Trachea midline, no thyromegaly or masses palpated, and no cervical lymphadenopathy. Supple, full range of motion without nuchal rigidity, or vertebral point tenderness. No Meningismus. 20:42 Cardiovascular: Regular rate and rhythm with a normal S1 and S2. No gallops, murmurs, or rubs. Normal PMI, no JVD. No pulse deficits. Respiratory: Lungs have equal breath sounds bilaterally, clear to auscultation and percussion. No rales, rhonchi or wheezes noted. No increased work of breathing, no retractions or nasal flaring. Abdomen/GI: Soft, non-tender, with normal bowel sounds. No distension or tympany. No guarding or rebound. No evidence of tenderness throughout. Back: No spinal tenderness. No costovertebral tenderness. Full range of motion. 20:42 Neuro: Awake and alert, GCS 15, oriented to person, place, time, and situation. Cranial nerves II-XII grossly intact. Motor strength 5/5 in all extremities. Sensory grossly intact. Cerebellar exam normal. Normal gait. Psych: Awake, alert, with orientation to person, place and time. Behavior, mood, and affect are within normal limits. 20:42 Chest/axilla: Inspection: abrasion, that is mild, of the right lateral posterior chest Palpation: tenderness, that is mild, of the right lateral posterior chest, that totally reproduces the patient's complaints, Axilla: are normal, Lymph nodes: lymphadenopathy is not appreciated. 20:42 Musculoskeletal/extremity: Extremities: noted in the right lower leg: contusion, ROM: intact in all extremities, Circulation is intact in all extremities. Pulses: are normal with no appreciated deficits, Perfusion: the patient is normally perfused throughout, Perfusion: the extremity is normally perfused throughout, Calf tenderness, is absent, Sensation intact. Compartment Syndrome exam of affected extremity: is normal. no numbness, no tingling, no sensation deficit, no palor, no weak pulses, Joints: All joints appear normal with full range of motion. 20:42 Skin: injury, contusion(s), that are superficial, of the right lower leg. Vital Signs: 19:58 BP 179 / 102; Pulse 93; Resp 17; Temp 97.8; Pulse Ox 96% ; Weight 48.53 kg; Height 5 rr5 ft. 4 in. (162.56 cm); Pain 5/10; 21:00 BP 186 / 84; Pulse 95; Resp 17; Pulse Ox 98% ; rr5 22:00 BP 176 / 105; Pulse 93; Resp 17; Pulse Ox 98% ; rr5 23:00 BP 170 / 90; Pulse 85; Resp 16; Pulse Ox 99% ; rr5 02/07 00:10 BP 175 / 95; Pulse 90; Resp 16; Pulse Ox 98% ; rr5 02/06 19:58 Body Mass Index 18.37 (48.53 kg, 162.56 cm) rr5 Kyle Coma Score: 02/06 20:00 Eye Response: spontaneous(4). Verbal Response: oriented(5). Motor Response: obeys rr5 commands(6). Total: 15. 02/07 00:00 Eye Response: spontaneous(4). Verbal Response: oriented(5). Motor Response: obeys rr5 commands(6). Total: 15. Trauma Score (Adult): 02/06 20:00 Eye Response: spontaneous(1); Verbal Response: oriented(1); Motor Response: obeys rr5 commands(2); Systolic BP: > 89 mm Hg(4); Respiratory Rate: 10 to 29 per min(4); [place] Score: 15; Trauma Score: 12 02/07 00:00 Eye Response: spontaneous(1); Verbal Response: oriented(1); Motor Response: obeys rr5 commands(2); Systolic BP: > 89 mm Hg(4); Respiratory Rate: 10 to 29 per min(4); Kyle Score: 15; Trauma Score: 12 MDM: 00:17 Differential diagnosis: abrasion, closed head injury, contusion, fracture. Data [facility] reviewed: vital signs, nurses notes, EMS record, old medical records, lab test result(s), cardiac enzymes, CBC, electrolytes, urinalysis, EKG, radiologic studies, CT scan, plain films. Data interpreted: Pulse oximetry: on room air is 98 %. Interpretation: normal. Counseling: I had a detailed discussion with the patient and/or guardian regarding: the historical points, exam findings, and any diagnostic results supporting the discharge/admit diagnosis, the presence of at least one elevated blood pressure reading (>120/80) during this emergency department visit, lab results, radiology results, the need for outpatient follow up, to return to the emergency department if symptoms worsen or persist or if there are any questions or concerns that arise at home. Response to treatment: the patient's symptoms have resolved after treatment, the patient's blood pressure is in an acceptable range, mental status has returned to baseline, the patient no longer shows bradycardia, the patient is not short of breath, the patient is not tachycardic, the patient's pain is gone, the patient's temperature has normalized, the patient is now symptom free, patient is well hydrated. 00:19 Patient medically screened. [facility] 02/06 20:10 Order name: Basic Metabolic Panel [facility] 02/06 20:10 Order name: CBC with Diff [facility] 02/06 20:10 Order name: Type And Screen [facility] 02/06 20:10 Order name: Troponin (emerg Dept Use Only); Complete Time: 22:20 [facility] 02/06 20:10 Order name: PROBNP; Complete Time: 22:20 [facility] 02/06 20:10 Order name: Protime (+inr); Complete Time: 22:20 [facility] 02/06 20:10 Order name: Ptt, Activated; Complete Time: 22:20 [facility] 02/06 20:10 Order name: Basic Metabolic Panel; Complete Time: 22:20 [facility] 02/06 20:10 Order name: CBC with Automated Diff; Complete Time: 22:20 [facility] 02/06 20:58 Order name: LFT's; Complete Time: 22:20 [facility] 02/06 22:52 Order name: Urine Dipstick--Ancillary (enter results) 2 02/06 22:53 Order name: Urine Dipstick-Ancillary; Complete Time: 22:56 [facility] 02/06 23:04 Order name: Urine Microscopic Only 5 02/06 20:10 Order name: XRAY Pelvis; Complete Time: 22:20 [facility] 02/06 20:10 Order name: XRAY Chest (1 view); Complete Time: 22:20 [facility] 02/06 20:10 Order name: CT Head C Spine; Complete Time: 22:20 [facility] 02/06 20:10 Order name: Labs collected and sent; Complete Time: 20:18 [facility] 02/06 20:10 Order name: Tib Fib Right XRAY; Complete Time: 22:20 [facility] 02/06 20:10 Order name: Urine Dipstick-Ancillary (obtain specimen); Complete Time: 23:06 [facility] 02/06 20:10 Order name: EKG - Nurse/Tech; Complete Time: 20:17 7 Administered Medications: 02/06 21:18 Drug: Tylenol 1000 mg Route: PO; 22:00 Follow up: Response: No adverse reaction rr5 02/07 00:10 Drug: Rocephin (cefTRIAXone) 1 grams Route: IV; Rate: per protocol; Site: right forearm;rr5 00:30 Follow up: Response: No adverse reaction; IV Status: Completed infusion rr5 00:17 Drug: Potassium Effervescent Tablet 50 mEq Route: PO; rr5 00:30 Follow up: Response: No adverse reaction rr5 Disposition: 02/07/21 00:19 Discharged to Home. Impression: Fall-Mechanical, Head Contusion, Right Leg Contusion, UTI. - Condition is Stable. - Discharge Instructions: Urinary Tract Infection, Adult, Kwfn-sj-Hyer, Contusion, Ltpl-ng-Modc, Fall Prevention in the Home, Oohp-co-Feno, Facial or Scalp Contusion, Zfov-az-Tihy. - Prescriptions for Keflex 500 mg Oral Capsule - take 1 capsule by ORAL route every 12 hours for 7 days; 14 capsule. - Medication Reconciliation Form, Thank You Letter, Antibiotic Education, Prescription Opioid Use form. - Follow up: Private Physician; When: 1 - 2 days; Reason: Worsening of condition, Recheck today's complaints, Continuance of care, Re-evaluation by your physician. - Problem is new. - Symptoms have improved. Signatures: Dispatcher [employer] EDMS Mathew Watson RN RN Rohini uCrtis mw2 Sathish Sullivan RN RN rr5 Sherman Dennis MD MD mh7 Corrections: (The following items were deleted from the chart) 00:30 00:19 02/07/2021 00:19 Discharged to Home. Impression: Fall-Mechanical; Head Contusion; mw2 Right Leg Contusion; UTI. Condition is Stable. Forms are Medication Reconciliation Form, Thank You Letter, Antibiotic Education, Prescription Opioid Use. Follow up: Private Physician; When: 1 - 2 days; Reason: Worsening of condition, Recheck today's complaints, Continuance of care, Re-evaluation by your physician. Problem is new. Symptoms have improved. mh7
--- NOTE | 2021-02-07 00:20 | ER ---
Nurse's Notes [facility] Name: Lila Martin Age: 80 yrs Sex: Female : 1940 Arrival Date: 02/06/2021 Time: 19:58 Bed 2 Private MD: Diagnosis: Fall-Mechanical;Head Contusion;Right Leg Contusion;UTI Presentation: 02/06 19:58 Chief complaint: EMS states: fell down while taking shower hit her head complaining of rr5 head, neck pain and generalized weakness. not taking blood thinner, no LOC. ECG Afib. Coronavirus screen: Client denies travel out of the [place] in the last 14 days. At this time, the client does not indicate any symptoms associated with coronavirus-19. Ebola Screen: Patient negative for fever greater than or equal to 101.5 degrees Fahrenheit, and additional compatible Ebola Virus Disease symptoms Patient denies exposure to infectious person. Patient denies travel to an Ebola-affected area in the 21 days before illness onset. Initial Sepsis Screen: Does the patient meet any 2 criteria? No. Patient's initial sepsis screen is negative. Does the patient have a suspected source of infection? No. Patient's initial sepsis screen is negative. Risk Assessment: Do you want to hurt yourself or someone else? Patient reports no desire to harm self or others. Onset of symptoms was February 06, 2021 at 19:30. 19:58 Method Of Arrival: EMS: [facility] rr5 19:58 Acuity: BRIDGETT 2 rr5 19:58 Care prior to arrival: None. Mechanism of Injury: Fall from standing position. Trauma rr5 event details: Injury occurred in the [facility], Injury occurred: at home. Injury occurred: February 06, 2021. Trauma Activation: Not Applicable Physician: ED Physician; Name: ; Notified At: ; Arrived At: Physician: General Surgeon; Name: ; Notified At: ; Arrived At: Physician: Radiology; Name: ; Notified At: ; Arrived At: Physician: Respiratory; Name: ; Notified At: ; Arrived At: Physician: Lab; Name: ; Notified At: ; Arrived At: Historical: - Allergies: 20:05 Codeine; rr5 20:05 GUAIFENESIN; rr5 - Home Meds: 20:05 pravastatin oral oral [Active]; Omeprazole Oral [Active]; Meclizine Oral [Active]; rr5 - PMHx: 20:05 Anemia; COPD; Depression; GERD; GI Bleed; High Cholesterol; Hyperlipidemia; rr5 Hypertension; osteoarthritis; Sleep Apnea; hyperbulimia; - Immunization history:: Adult Immunizations up to date. - Social history:: Smoking status: Patient reports the use of cigarette tobacco products, smokes one pack cigarettes per day. - Immunization history: Last tetanus immunization: unknown. Screenin:00 Abuse screen: Denies threats or abuse. Denies injuries from another. Nutritional rr5 screening: No deficits noted. Tuberculosis screening: No symptoms or risk factors identified. Fall Risk Fall in past 12 months (25 points). IV access (20 points). Gait- Weak (10 pts.). Total Guzmán Fall Scale indicates High Risk Score (45 or more points). Fall prevention measures have been instituted. Side Rails Up X 2 Frequent Obs/Assessments Occuring As available patient and family educated on Fall Prevention Program and Strategies. Primary Survey: 20:00 NO uncontrolled hemorrhage observed. A: The patient is alert. Airway: patent. rr5 Breathing/Chest: Respiratory pattern: regular, Respiratory effort: spontaneous, unlabored. Circulation: Pulses: palpable right radial artery and left radial artery. Disability Alert. Exposure/Environment: There is no evidence of uncontrolled external bleeding. No obvious injuries are noted at this time. A warming method has been applied: A warm blanket has been provided to the patient. 21:00 Reassessment Airway Airway Patent Breathing/Chest Respiratory pattern Regular rr5 Respiratory effort Spontaneous Unlabored Breath sounds Clear Chest inspection Symmetrical Circulation Heart tones Present Disability Alert. Secondary Survey: 20:10 HEENT: Head No injury/deformity Face No injury/deformity Eyes: No injury or deformity rr5 noted. Ears: clear bilaterally. Nose: clear to bilateral nares. Throat: is clear with gag reflex present. Gastrointestinal: Abdomen is soft. : No signs and/or symptoms were reported regarding the genitourinary system. Musculoskeletal: Capillary refill < 3 seconds, Reports pain in head,right arm, left arm, left leg and neck. Assessment: 20:00 General: Appears in no apparent distress. comfortable, Behavior is calm, cooperative, rr5 appropriate for age. Pain: Complains of pain in head Pain currently is 5 out of 10 on a pain scale. Quality of pain is described as aching, Pain began suddenly, Is intermittent. Neuro: Level of Consciousness is awake, alert, obeys commands, Oriented to person, place, time. Cardiovascular: Capillary refill < 3 seconds Patient's skin is warm and dry. Respiratory: Airway is patent Respiratory effort is even, unlabored, Respiratory pattern is regular, symmetrical. GI: Abdomen is round. : No signs and/or symptoms were reported regarding the genitourinary system. EENT: No signs and/or symptoms were reported regarding the EENT system. Derm: Skin is fragile, is thin, Skin temperature is warm. Musculoskeletal: Capillary refill < 3 seconds, Reports pain in head,right arm, left arm, right leg, left leg and neck. 21:00 Reassessment: Patient appears in no apparent distress at this time. Patient and/or rr5 family updated on plan of care and expected duration. Pain level reassessed. Patient is alert, oriented x 3, equal unlabored respirations, skin warm/dry/pink. awaiting for results. 22:00 Reassessment: Patient appears in no apparent distress at this time. Patient is alert, rr5 oriented x 3, equal unlabored respirations, skin warm/dry/pink. additional warm blanket applied as requested. 23:00 Reassessment: Patient appears in no apparent distress at this time. No changes from rr5 previously documented assessment. 02/07 00:00 Reassessment: Patient appears in no apparent distress at this time. Patient is alert, rr5 oriented x 3, equal unlabored respirations, skin warm/dry/pink. able to walk around her room using a walker, no dizziness and no complaints made. 00:25 Reassessment: Patient appears in no apparent distress at this time. Patient is alert, rr5 oriented x 3, equal unlabored respirations, skin warm/dry/pink. discharge instruction given and explained without complaints made Patient states feeling better. Patient states symptoms have improved. Vital Signs: 02/06 19:58 BP 179 / 102; Pulse 93; Resp 17; Temp 97.8; Pulse Ox 96% ; Weight 48.53 kg; Height 5 rr5 ft. 4 in. (162.56 cm); Pain 5/10; 21:00 BP 186 / 84; Pulse 95; Resp 17; Pulse Ox 98% ; rr5 22:00 BP 176 / 105; Pulse 93; Resp 17; Pulse Ox 98% ; rr5 23:00 BP 170 / 90; Pulse 85; Resp 16; Pulse Ox 99% ; rr5 02/07 00:10 BP 175 / 95; Pulse 90; Resp 16; Pulse Ox 98% ; rr5 02/06 19:58 Body Mass Index 18.37 (48.53 kg, 162.56 cm) rr5 [place] Coma Score: 02/06 20:00 Eye Response: spontaneous(4). Verbal Response: oriented(5). Motor Response: obeys rr5 commands(6). Total: 15. 02/07 00:00 Eye Response: spontaneous(4). Verbal Response: oriented(5). Motor Response: obeys rr5 commands(6). Total: 15. Trauma Score (Adult): 02/06 20:00 Eye Response: spontaneous(1); Verbal Response: oriented(1); Motor Response: obeys rr5 commands(2); Systolic BP: > 89 mm Hg(4); Respiratory Rate: 10 to 29 per min(4); [place] Score: 15; Trauma Score: 12 02/07 00:00 Eye Response: spontaneous(1); Verbal Response: oriented(1); Motor Response: obeys rr5 commands(2); Systolic BP: > 89 mm Hg(4); Respiratory Rate: 10 to 29 per min(4); Kyle Score: 15; Trauma Score: 12 ED Course: 02/06 19:58 Patient arrived in ED. rr5 19:58 Sherman Dennis MD is Attending Physician. mh7 20:00 Patient maintains SpO2 saturation greater than 95% on room air. rr5 20:00 Thermoregulation: warm blanket given to patient. rr5 20:03 Triage completed. rr5 20:05 Arm band placed on left wrist. rr5 20:06 Patient has correct armband on for positive identification. Placed in gown. Bed in low rr5 position. Call light in reach. Side rails up X2. monitoring specialist on. Pulse ox on. NIBP on. 20:10 EKG done, by ED staff, reviewed by Sherman Dennis MD. Inserted saline lock: 20 gauge in rr5 right forearm, using aseptic technique. Blood collected. 20:22 No provider procedures requiring assistance completed. rr5 20:23 CT Head C Spine In Process Unspecified. EDMS 20:24 Sathish Sullivan, RN is Primary Nurse. rr5 20:39 XRAY Pelvis In Process Unspecified. EDMS 20:39 XRAY Chest (1 view) In Process Unspecified. EDMS 20:40 Tib Fib Right XRAY In Process Unspecified. EDMS 02/07 00:41 IV discontinued, intact, bleeding controlled, No redness/swelling at site. Pressure rr5 dressing applied. Administered Medications: 02/06 21:18 Drug: Tylenol 1000 mg Route: PO; wh 22:00 Follow up: Response: No adverse reaction rr5 02/07 00:10 Drug: Rocephin (cefTRIAXone) 1 grams Route: IV; Rate: per protocol; Site: right forearm;rr5 00:30 Follow up: Response: No adverse reaction; IV Status: Completed infusion rr5 00:17 Drug: Potassium Effervescent Tablet 50 mEq Route: PO; rr5 00:30 Follow up: Response: No adverse reaction rr5 Output: 02/06 22:30 Urine: 400ml (Voided); Total: 400ml. rr5 Outcome: 02/07 00:19 Discharge ordered by . mh7 00:20 resultsPatient's length of stay extended due to rr5 00:29 Discharged to home via wheelchair, with family. rr5 00:29 Condition: stable 00:29 Discharge instructions given to patient, family, Instructed on discharge instructions, follow up and referral plans. medication usage, Demonstrated understanding of instructions, follow-up care, medications, Prescriptions given X 1. 00:30 Patient left the ED. mw2 Signatures: Dispatcher [employer] Mathew Jeong RN RN Rohini Curtis mw2 Sathish Sullivan, RN RN rr5 Sherman Dennis MD MD 7
[2021-02-07] MEDS ORDERED: CEFTRIAXONE/SWI 1gm 1 GM/10 ML SYR ONE (00:29)
[2021-02-07] MEDS ORDERED: POTASSIUM 25 MEQ EFFERV TAB ONE (00:29)
[2021-02-07 00:51] VITALS: TEMP 97.8
[2021-02-07 00:56] VITALS: BP 175/95; O2SAT 98
== END 2021-02-07 00:30 | disposition home or self-care (01) ==
LOC: ER 19:52
DX: S00.83XA Contusion of other part of head, initial encounter (principal); S80.11XA Contusion of right lower leg, initial encounter; N39.0 Urinary tract infection, site not specified; W18.2XXA Fall in (into) shower or empty bathtub, initial encounter; Y93.E1 Activity, personal bathing and showering; Y92.9 Unspecified place or not applicable; Z88.5 Allergy status to narcotic agent; Z88.8 Allergy status to other drugs, medicaments and biological substances; I10 Essential (primary) hypertension; E78.5 Hyperlipidemia, unspecified; E78.00 Pure hypercholesterolemia, unspecified; F17.210 Nicotine dependence, cigarettes, uncomplicated
CPT/HCPCS: 96365; 85025; 80048; 36415; 86900; 86850; 85610; 86901; 80076; 85730; 81003; 84484; 83880; 70450; 72125; 71045; 72170; 73590; 99285; J0696; 93005

== ENCOUNTER 2021-12-17 13:56 | Inpatient (IN) | payer OTHER ==
--- OUTSIDE RECORDS SUMMARY | 2021-12-17 13:58 | XMS REPORT | Continuity of Care Document ---
:[address] [facility] t Address [address] [place] [address] Care Team Providers Name Role Phone ROGER LYNN Primary Care Physician Unavailable Javon Garcia MD Attending Clinician JAVON GARCIA Attending Clinician Unavailable Doctor Unassigned, Name Attending Clinician Unavailable Pob, Lab Main Attending Clinician Unavailable Javon Garcia MD Admitting Clinician JAVON GARCIA Admitting Clinician Unavailable Payers Payer Name Policy Type Policy Number Effective Date Expiration Date S kristen [employer] MED[employer]ARE [id number] 2018 2021 ADV 00:00:00 00:00:00 Problems This patient has no known problems. Allergies, Adverse Reactions, Alerts Allergy Allergy Status Severity Reaction(s) Onset Inactive Treating Comm ents Source Name Type Date Date Clinician CODEINE DRUG Active N/V [facility] 04-18 ity of 00:00: [address] Medications This patient has no known medications. Procedures This patient has no known procedures. Encounters Start End Encounter Admission Attending Care Care Encounter Source Date/Time Date/Time Type Type Clinicians Facility Department ID 2020-01-10 2020-01-10 [facility] [id number] 09:06:00 13:50:00 Encounter Trey Alejandro Carter [id number] [facility] [id number] [facility] [id number] Center 071 2020-01-10 2020-01-10 [id number] [facility] 09:06:00 13:50:00 TREY moraes of [facility] 2020-01-10 2020-01-10 Orders Doctor LETHA [id number] 00:00:00 00:00:00 Only Unassigned, TIGRE [id number] [place] [facility] [id number] 2020-01-09 2020-01-09 [employer] Sumeet Kumar [facility] [id number] 10:21:59 10:36:59 Visit Lab Main Carter [id number] Deb [id number] [place] [id number] [place] [address] Building Results This patient has no known results.
[2021-12-17] MEDS ORDERED: NA CHLORIDE 0.9% 1,000 ML ONE (15:08)
--- NOTE | 2021-12-17 15:18 | RAD REPORT ---
EXAM DESCRIPTION: CT - Head Brain Wo Cont - 12/17/2021 3:09 pm CLINICAL HISTORY: CONFUSED Headache, drowsiness, CVA symptomology COMPARISON: Head Brain Wo Cont dated 04/27/2020; Head C Spine Mpr Wo Con dated 02/06/2021 TECHNIQUE: All CT scans are performed using dose optimization technique as appropriate and may inclu de automated exposure control or mA/KV adjustment according to patient size. FINDINGS: No intracranial hemorrhage, hydrocephalus or extra-axial fluid collection.Mild generalized brain atrophy is present with mild periventricular and deep white matter chronic microvascular ische batsheva changes.10 mm area of diminished density is seen in the right basal ganglia. The paranasal sinuses and mastoids are clear. The calvarium is intact. IMPRESSION: 10 mm area diminished density in the right basal ganglia most likely represent subacute infarct. No evidence of acute intracranial hemorrhage or midline shift.
[2021-12-17 15:26] LABS: Absolute Lymphocytes (CBC) 1.4 K/uL (0.7-4.9); Hematocrit 43.5 % (36.0-45.0); Lymphocytes % 31.1 % (15.3-44.8); MPV 9.4 fL (7.6-11.3); RBC Red Blood Cell Count 4.47 M/uL (3.86-4.86)
[2021-12-17 15:33] LABS: Protime INR 0.97
--- NOTE | 2021-12-17 15:41 | RAD REPORT ---
EXAM DESCRIPTION: RAD - Chest Single View - 12/17/2021 3:32 pm CLINICAL HISTORY: CONGESTION Chest pain. COMPARISON: Chest Single View dated 02/06/2021; Chest Single View dated 05/14/2020; Chest Single View dated 04/28/2020; Chest Single View dated 04/27/2020 FINDINGS: Portable technique limits examination quality. Interstitial lung markings are present bilaterally, greater on the left, likely representing a viral infection. The heart is upper limit normal in size. Aortic atherosclerosis is seen.The bones are diff usely osteopenic.
[2021-12-17] MEDS ORDERED: ASPIRIN 81 MG CHEWABLE TABLET ONE (15:46)
[2021-12-17 15:56] LABS: Urine Blood 1+ (Negative); Urine Glucose Negative (Negative); Urine Protein Negative (Negative); Urine Specific Gravity 1.015 (1.005-1.030)
[2021-12-17 16:01] LABS: ALT/SGPT 18 U/L (12-78); AST/SGOT 11 U/L (15-37); Albumin 3.3 g/dL (3.4-5.0); Alkaline Phosphatase 80 U/L (45-117); Amylase 109 U/L (25-115); BUN Blood Urea Nitrogen 13 mg/dL (7-18); Bicarbonate 32 mmol/L (21-32); Bilirubin Direct 0.1 mg/dL (0-0.2); Bilirubin Total 0.5 mg/dL (0.2-1.0); CKMB Creatine Kinase MB 1.5 ng/mL (1.0-3.6); Creatine Phosphokinase 52 U/L (26-192); Glucose Level 101 mg/dL (74-106); Lipase 82 U/L (73-393); Potassium 3.7 mmol/L (3.5-5.1); Sodium Level 139 mmol/L (136-145)
[2021-12-17 16:21] LABS: Urine Bacteria <20 /HPF (<20); Urine RBC <5 /HPF (NONE SEEN)
--- NOTE | 2021-12-17 17:21 | EDPHYS ---
Physician Documentation [facility] Name: Lila Martin Age: 81 yrs Sex: Female : 1940 Arrival Date: 12/17/2021 Time: 13:59 Bed 7 Private MD: ED Physician Austin Laguna HPI: 12/17 15:21 This 81 yrs old Female presents to ER via EMS with complaints of General Weakness. ma2 15:21 81 years old female brought in by EMS for generalized weakness failure to thrive, ma2 increased confusion today, I talked to the who stated that she has dementia however she got worse over the last 2 weeks, and got more sleepy last 2 days.. Historical: - Allergies: 14:06 Codeine; jh5 14:06 GUAIFENESIN; jh5 - PMHx: 14:06 Anemia; COPD; Depression; Hypertension; Hyperlipidemia; hyperbulimia; High Cholesterol; jh5 GI Bleed; GERD; osteoarthritis; Sleep Apnea; - Immunization history:: Adult Immunizations up to date. - Social history:: Smoking status: Patient reports the use of cigarette tobacco products, smokes two packs cigarettes per day. - Family history:: not pertinent. ROS: 15:21 Constitutional: Negative for fever, chills, and weight loss. ma2 15:21 Unable to obtain ROS due to baseline dementia, comatose state. Exam: 15:22 Constitutional: This is a well developed, well nourished patient who is sleeping, ma2 arousable to verbal stimulus, however she does not answer questions does not communicate, does not seem in distress or ill Head/Face: Normocephalic, atraumatic. Eyes: Pupils equal round and reactive to light, extra-ocular motions intact. Lids and lashes normal. Conjunctiva and sclera are non-icteric and not injected. Cornea within normal limits. Periorbital areas with no swelling, redness, or edema. ENT: Nares patent. No nasal discharge, no septal abnormalities noted. Tympanic membranes are normal and external auditory canals are clear. Oropharynx with no redness, swelling, or masses, exudates, or evidence of obstruction, uvula midline. Mucous membranes moist. Neck: Trachea midline, no thyromegaly or masses palpated, and no cervical lymphadenopathy. Supple, full range of motion without nuchal rigidity, or vertebral point tenderness. No Meningismus. Chest/axilla: Normal chest wall appearance and motion. Nontender with no deformity. No lesions are appreciated. Cardiovascular: Regular rate and rhythm with a normal S1 and S2. No gallops, murmurs, or rubs. Normal PMI, no JVD. No pulse deficits. Respiratory: Lungs have equal breath sounds bilaterally, clear to auscultation and percussion. No rales, rhonchi or wheezes noted. No increased work of breathing, no retractions or nasal flaring. Abdomen/GI: Soft, non-tender, with normal bowel sounds. No distension or tympany. No guarding or rebound. No evidence of tenderness throughout. MS/ Extremity: Pulses equal, no cyanosis. Neurovascular intact. Full, normal range of motion. Neuro: Sleepy arousable to verbal stimulus, does not answer questions nonverbal, does not cooperate with neuro exam, moves all extremities. Vital Signs: 14:00 BP 188 / 92; Pulse 78; Resp 16; Temp 98.8; Pulse Ox 95% ; Weight 58.97 kg; Height 5 ft. [facility] 6 in. (167.64 cm); Pain 0/10; 16:53 BP 177 / 74; Pulse 59; Resp 16; Pulse Ox 97% on R/A; huggins 17:15 BP 161 / 94; Pulse 61; Resp 13; Pulse Ox 96% on R/A; ww 18:19 BP 140 / 82; Pulse 58; Resp 17; Pulse Ox 96% on R/A; ww 14:00 Body Mass Index 20.98 (58.97 kg, 167.64 cm) [facility] MDM: 14:[address] [facility] 15:29 Differential Diagnosis: Discussed with Dr. Fernández, patient has subacute stroke in ut2 basal ganglia.. 17:19 Data reviewed: vital signs, nurses notes, EMS record, halfway records. Counseling: ma2 I had a detailed discussion with the patient and/or guardian regarding: the historical points, exam findings, and any diagnostic results supporting the discharge/admit diagnosis, the presence of at least one elevated blood pressure reading (>120/80) during this emergency department visit, the need for outpatient follow up. Response to treatment: the patient's symptoms have markedly improved after treatment. 12/17 14:52 Order name: Amylase, Serum; Complete Time: 16:56 ut12/17 14:52 Order name: Basic Metabolic Panel; Complete Time: 16:56 ut12/17 14:52 Order name: Blood Culture Adult (2) ut12/17 14:52 Order name: CBC with Diff; Complete Time: 15:27 ut12/17 14:52 Order name: CPK; Complete Time: 16:56 ut12/17 14:52 Order name: Ckmb; Complete Time: 16:56 ut12/17 14:52 Order name: LFT's; Complete Time: 16:56 ut12/17 14:52 Order name: Lactate; Complete Time: 16:56 ut12/17 14:52 Order name: Lipase; Complete Time: 16:56 ut12/17 14:52 Order name: Procalcitonin ut12/17 14:52 Order name: Protime (+inr); Complete Time: 16:56 ut12/17 14:52 Order name: Ptt, Activated; Complete Time: 16:56 ut12/17 14:52 Order name: Troponin HS; Complete Time: 16:56 ut12/17 14:52 Order name: Urine Microscopic Only; Complete Time: 16:56 ut12/17 14:52 Order name: Chest Single View XRAY; Complete Time: 16:56 ut12/17 14:52 Order name: Accucheck; Complete Time: 16:39 ut12/17 14:52 Order name: Cardiac monitoring; Complete Time: 15:04 ut12/17 14:52 Order name: EKG - Nurse/Tech; Complete Time: 15:25 12/17 14:52 Order name: IV Saline Lock - Large Bore; Complete Time: 15:04 ut12/17 14:52 Order name: SARS-COV-2 RT PCR (Document "Date of Onset" if Symptomatic); Complete Time: 16:56 12/17 14:52 Order name: CT Head Brain wo Cont; Complete Time: 15:26 ut12/17 15:56 Order name: Urine Dipstick-Ancillary; Complete Time: 16:56 [facility] 12/17 18:26 Order name: Physical Therapy Consult [facility] 12/17 18:26 Order name: Social Service Consult [facility] 12/17 18:26 Order name: Echo with Doppler [facility] 12/17 18:26 Order name: EKG Electrocardiogram [facility] 12/17 18:27 Order name: Speech Therapy Consult [facility] 12/17 18:27 Order name: Chest Pa And Lat (2 Views) [facility] 12/17 14:52 Order name: Labs collected and sent; Complete Time: 15:04 [facility] 12/17 14:52 Order name: O2 Per Protocol; Complete Time: 15:05 [facility] 12/17 14:52 Order name: O2 Sat Monitoring; Complete Time: 15:05 [facility] 12/17 14:52 Order name: Urine Dipstick-Ancillary (obtain specimen); Complete Time: 16:39 ma2 Administered Medications: 15:20 Drug: NS 0.9% 1000 ml Route: IV; Rate: 1 bolus; Site: right forearm; huggins 15:50 Drug: Aspirin Chewable Tablet 324 mg Route: PO; Disposition Summary: 12/17/21 17:20 Hospitalization Ordered Hospitalization Status: Inpatient Admission ut2 Provider: Austin Finley ma2 Condition: Stable ma2 Problem: new ma2 Symptoms: are unchanged ma2 Bed/Room Type: Standard ut2 Location: Telemetry/MedSurg (Inpatient)(12/17/21 21:53) eb1 Room Assignment: [facility](12/17/21 21:53) [facility] Diagnosis - Cerebral infarction, unspecified ma2 Forms: - Medication Reconciliation Form ma2 - SBAR form ma2 Signatures: Dispatcher [employer] Austin Beach MD MD ut2 Ivanna Cornejo RN RN Marianne Gomez RN RN jh5 Wood, Whitney, RN RN ww Au-Stager, Heather, RN RN ha Corrections: (The following items were deleted from the chart) 19:34 17:20 Telemetry/MedSurg (Inpatient) ma2 eb1 19:34 17:20 ma2 eb1 21:53 19:34 [facility] ER HOLD eb1 eb1 :53 19:34 ERHOLD- eb1 eb1
--- NOTE | 2021-12-17 17:21 | ER ---
Nurse's Notes [facility] Name: Lila Martin Age: 81 yrs Sex: Female : 1940 Arrival Date: 12/17/2021 Time: 13:59 Bed 7 Private MD: Diagnosis: Cerebral infarction, unspecified Presentation: 12/17 14:00 Chief complaint: EMS states: Pt from home; general weakness/failure to thrive. Pt hx of [facility] dementia; family notes she is progressively declining at home. not eating as much, etc. Coronavirus screen: Vaccine status: Patient reports receiving the 2nd dose of the covid vaccine. Client denies travel out of the [place] in the last 14 days. At this time, the client does not indicate any symptoms associated with coronavirus-19. Ebola Screen: Patient negative for fever greater than or equal to 101.5 degrees Fahrenheit, and additional compatible Ebola Virus Disease symptoms Patient denies exposure to infectious person. Patient denies travel to an Ebola-affected area in the 21 days before illness onset. Initial Sepsis Screen: Does the patient meet any 2 criteria? No. Patient's initial sepsis screen is negative. Does the patient have a suspected source of infection? No. Patient's initial sepsis screen is negative. Risk Assessment: Do you want to hurt yourself or someone else? Patient reports no desire to harm self or others. Onset of symptoms was December 17, 2021. 14:00 Method Of Arrival: EMS: [place] [id number] 14:00 Acuity: BRIDGETT 3 5 Triage Assessment: 14:07 General: Appears in no apparent distress. comfortable, slender, well groomed, Behavior [facility] is calm, cooperative, flat. Pain: Denies pain. Historical: - Allergies: 14:06 Codeine; 5 14:06 GUAIFENESIN; [facility] - PMHx: 14:06 Anemia; COPD; Depression; Hypertension; Hyperlipidemia; hyperbulimia; High Cholesterol; 5 GI Bleed; GERD; osteoarthritis; Sleep Apnea; - Immunization history:: Adult Immunizations up to date. - Social history:: Smoking status: Patient reports the use of cigarette tobacco products, smokes two packs cigarettes per day. - Family history:: not pertinent. Screenin:07 Abuse screen: Denies threats or abuse. Denies injuries from another. Nutritional 5 screening: No deficits noted. Tuberculosis screening: No symptoms or risk factors identified. Fall Risk Secondary diagnosis (15 points) impaired mobility. Assessment: 14:13 Reassessment: see triage. [facility] 15:50 General: Appears comfortable, Behavior is calm, cooperative. Pain: Denies pain. Neuro: Level of Consciousness is awake, alert, obeys commands, Oriented to person, place, time, situation. Cardiovascular: Capillary refill < 3 seconds Patient's skin is warm and dry. Respiratory: Airway is patent Respiratory effort is even, unlabored, Respiratory pattern is regular, symmetrical. GI: No deficits noted. No signs and/or symptoms were reported involving the gastrointestinal system. : No deficits noted. No signs and/or symptoms were reported regarding the genitourinary system. EENT: No deficits noted. No signs and/or symptoms were reported regarding the EENT system. Derm: Skin is fragile, is thin. 16:30 Reassessment: Patient appears in no apparent distress at this time. No changes from previously documented assessment. Patient and/or family updated on plan of care and expected duration. Pain level reassessed. 17:24 Reassessment: Patient appears in no apparent distress at this time. No changes from previously documented assessment. Patient and/or family updated on plan of care and expected duration. Pain level reassessed. 18:14 Reassessment: Patient appears in no apparent distress at this time. No changes from previously documented assessment. Patient and/or family updated on plan of care and expected duration. Pain level reassessed. Neuro: Level of Consciousness is awake, alert, Oriented to person, place, time, situation, Gait is unsteady, bedside toilet with assist. Vital Signs: 14:00 BP 188 / 92; Pulse 78; Resp 16; Temp 98.8; Pulse Ox 95% ; Weight 58.97 kg; Height 5 ft. jh5 6 in. (167.64 cm); Pain 0/10; 16:53 BP 177 / 74; Pulse 59; Resp 16; Pulse Ox 97% on R/A; huggins 17:15 BP 161 / 94; Pulse 61; Resp 13; Pulse Ox 96% on R/A; ww 18:19 BP 140 / 82; Pulse 58; Resp 17; Pulse Ox 96% on R/A; ww 14:00 Body Mass Index 20.98 (58.97 kg, 167.64 cm) [facility] ED Course: 13:59 Patient arrived in ED. [facility] 14:06 Triage completed. [facility] 14:07 Arm band placed on right wrist. [facility] 14:08 Patient has correct armband on for positive identification. Bed in low position. Call [facility] light in reach. Side rails up X2. 14:10 Robert Hong PA is PHCP. cp 14:10 Austin Laguna MD is Attending Physician. cp 14:13 Marianne Feng, DANIKA is Primary Nurse. [facility] 14:47 Austin Laguna MD is Attending Physician. ia2 15:09 CT Head Brain wo Cont In Process Unspecified. EDMS 15:19 SARS-COV-2 RT PCR (Document "Date of Onset" if Symptomatic) Sent. huggins 15:19 Amylase, Serum Sent. huggins 15:19 Basic Metabolic Panel Sent. huggins 15:19 Blood Culture Adult (2) Sent. huggins 15:19 CBC with Diff Sent. huggins 15:19 CPK Sent. huggins 15:19 Ckmb Sent. huggins 15:19 LFT's Sent. huggins 15:19 Lactate Sent. huggins 15:19 Lipase Sent. huggins 15:20 Procalcitonin Sent. huggins 15:20 Protime (+inr) Sent. huggins 15:20 Ptt, Activated Sent. huggins 15:20 Troponin HS Sent. huggins 15:32 Chest Single View XRAY In Process Unspecified. EDMS 16:53 No provider procedures requiring assistance completed. Inserted saline lock: 20 gauge huggins in right forearm, using aseptic technique. 17:20 Austin Finley MD is Hospitalizing Provider. [facility] 23:07 Patient admitted, IV remains in place. [facility] Administered Medications: 15:20 Drug: NS 0.9% 1000 ml Route: IV; Rate: 1 bolus; Site: right forearm; huggins 15:50 Drug: Aspirin Chewable Tablet 324 mg Route: PO; ww Outcome: 17:20 Decision to Hospitalize by Provider. [facility] 23:07 Admitted to Med/surg accompanied by tech, via wheelchair, with chart. [facility] 23:07 Condition: stable 23:07 Instructed on the need for admit. 23:08 Patient left the ED. [facility] Signatures: Dispatcher [employer] EDGA Page, Robert, Austin Unger cp, MD MD ma2 Marianne Feng, RN RN jh5 Jayda Juarez, RN RN sm5 Jeri Browne, RN RN ww Lyric Thomas, RN RN huggins
[2021-12-17] MEDS ORDERED: ONDANSETRON 4 MG/2 ML VIAL IV PRN (18:22)
[2021-12-17] MEDS ORDERED: ACETAMINOPHEN 500 MG TAB PO PRN (18:22)
--- NOTE | 2021-12-17 18:58 | P.HP ---
Certification for Inpatient Patient admitted to: Inpatient With expected LOS: <2 Midnights Patient will require the following post-hospital care: None Practitioner: I am a practitioner with admitting privileges, knowledge of patient current condition, hospital course, and medical plan of care. Services: Services provided to patient in accordance with Admission requirements found in Title 42 Section 412.3 of the Code of Federal Regulations <Steven Harmon - Last Filed: 12/17/21 18:53> Patient History Date of Service: 12/17/21 Primary Care Provider: [place] Reason for admission: subacute stroke History of Present Illness: Mr. Martin is an 81 yo F with dementia, COPD, HTN, HLD who was brought in today by EMS for increased weakness and confusion. Per , these symptoms have been ongoing for the past 2 weeks but have been acutely worse over the past 2 days. He says that she has been getting up in the middle of the night, thinking that she has guests over, and beginning to cook for them. Today he was unable to get her out of bed so he activated EMS. At baseline, patient is ambulatory independently. She is AOx4 at bedside. She smokes [address] HEAD IMPRESSION: 10 mm area diminished density in the right basal ganglia most likely represent subacute infarct. No evidence of acute intracranial hemorrhage or midline shift. CXR FINDINGS: Portable technique limits examination quality. Interstitial lung markings are present bilaterally, greater on the left, likely representing a viral infection. The heart is upper limit normal in size. Aortic atherosclerosis is seen.The bones are diffusely osteopenic. - Past Medical/Surgical History Diabetic: No -: Hypertension -: COPD -: GERD -: Hyperlipidemia -: Scoliosis -: Depression -: Dementia -: Tobacco abuse -: Alcohol use -: Chronic anemia -: Hysterectomy -: Cholecystectomy -: Cataracts surgery -: -: Left open reduction internal fixation of the left femur Psychosocial/ Personal History: Patient lives at home. - Family History Father -: Hypertension, Lung disease, Cancer Notes: high cholesterol Mother -: Hypertension, Lung disease, Cancer, Other (see notes) Notes: stomach/lung cancer; high cholesterol - Social History Smoking Status: Current every day smoker Alcohol use: No CD- Drugs: No Caffeine use: Yes Place of Residence: Home <Steven Harmon - Last Filed: 12/17/21 18:53> Date of Service: 12/17/21 <MaliaGabcelina Rene - Last Filed: 12/22/21 03:21> Allergies codeine Allergy (Verified 04/14/19 02:56) Rash guaifenesin [From Robitussin] Allergy (Verified 04/14/19 02:56) Itching/Hives/Rash Cough Syrup Allergy (Uncoded 10/26/18 10:13) Unknown Home Medications: Montelukast [Singulair*] 1 tab PO DAILY 04/27/20 Pravastatin Sodium 1 tab PO BEDTIME 04/27/20 Docusate [Colace Cap*] 100 mg PO BID 30 Days #60 cap 05/02/20 Albuterol Inhaler [Ventolin Inhaler*] 2 puff IH BID 05/14/20 Aspirin [Aspirin EC 81 MG] 1 tab PO DAILY 05/14/20 Omeprazole 1 tab PO BEDTIME 05/14/20 Ferrous Sulfate 325 mg PO BID #60 tablet 05/15/20 Review of Systems 10-point ROS is otherwise unremarkable General: Weakness Eyes: Unremarkable ENT: Unremarkable Respiratory: Unremarkable Cardiovascular: Unremarkable Gastrointestinal: Unremarkable Genitourinary: Unremarkable Musculoskeletal: Unremarkable Integumentary: Unremarkable Neurological: Weakness, Confusion, As per HPI Lymphatics: Unremarkable <Steven Harmon - Last Filed: 12/17/21 18:53> Physical Examination - Physical Exam General: Alert, In no apparent distress, Oriented x3 HEENT: Atraumatic, PERRLA, Mucous membr. moist/pink, EOMI, Sclerae nonicteric Neck: Supple, 2+ carotid pulse no bruit, No LAD, Without JVD or thyroid abnormality Respiratory: Normal air movement Cardiovascular: No edema, Regular rate/rhythm, Normal S1 S2 Gastrointestinal: Normal bowel sounds, No tenderness Musculoskeletal: No tenderness Integumentary: No rashes Neurological: Normal speech, Normal strength at 5/5 x4 extr, Normal tone, Sensation intact, Cranial nerves 3-12 intact, Dementia Lymphatics: No axilla or inguinal lymphadenopathy - Studies Laboratory Data (last 24 hrs) 12/17/21 15:03: PT 11.2, INR 0.97, APTT 31.2 12/17/21 15:03: WBC 4.60, Hgb 14.7, Hct 43.5, Plt Count 212 12/17/21 15:03: Sodium 139, Potassium 3.7, BUN 13, Creatinine 0.63, Glucose 101, Total Bilirubin 0.5, AST 11 L, ALT 18, Alkaline Phosphatase 80, Amylase 109, Lipase 82 <Steven Harmon - Last Filed: 12/17/21 18:53> Assessment and Plan - Problems (Diagnosis) (1) Stroke Status: Acute Qualifiers: CVA mechanism: unspecified Qualified Code(s): I63.9 - Cerebral infarction, unspecified (2) Weakness generalized Onset Date: 10/02/15 Status: Acute (3) COPD (chronic obstructive pulmonary disease) Onset Date: 10/15/15 Status: Chronic Qualifiers: COPD type: chronic bronchitis Chronic bronchitis type: simple Qualified Code(s): J41.0 - Simple chronic bronchitis (4) GERD (gastroesophageal reflux disease) Onset Date: 09/29/16 Status: Chronic Qualifiers: Esophagitis presence: without esophagitis Qualified Code(s): K21.9 - Gastro-esophageal reflux disease without esophagitis (5) Hyperlipidemia Onset Date: 09/29/16 Status: Chronic Qualifiers: Hyperlipidemia type: mixed hyperlipidemia Qualified Code(s): E78.2 - Mixed hyperlipidemia (6) Hypertension Onset Date: 10/15/15 Status: Chronic Qualifiers: Hypertension type: essential hypertension Qualified Code(s): I10 - Essential (primary) hypertension (7) Tobacco abuse Status: Chronic - Plan neurology consulted neurochecks and NIH stroke scale q shift speech therapy consulted, social work consulted, physical therapy consulted bedside swallow pending, NPO if patient fails swallow study continue aspirin, plavix, statin lipid profile and coagulation studies pending reconcile and continue home medications permissive HTN, hydralazine PRN for blood pressure spikes DVT ppx Discharge Plan: Home Plan to discharge in: 24 Hours - Advance Directives Does patient have a Living Will: No Does patient have a Durable POA for Healthcare: No - Code Status/Comfort Care Code Status Assessed: Yes (full code ) Critical Care: No Time Spent Managing Pts Care (In Minutes): 70 <Steven Harmon - Last Filed: 12/17/21 18:53> Date of Service: 12/17/21 Subjective: Agree with the HPI as mentioned above Physical Examination: Vitals: Afebrile vital signs are stable Physical exam: Cardiovascular: Within normal limits. Lungs: Within normal limits Abdomen: Within normal limits Neuro: Awake, alert, oriented to person place and time Assessment: 1. Acute ischemic stroke Plan: 1. Continue with current plan of care <Austin Finley - Last Filed: 12/22/21 03:21>
[2021-12-17] MEDS ORDERED: ATORVASTATIN 80 MG TAB PO SCH (21:00)
[2021-12-18] MEDS: ENOXAPARIN 40 MG/0.4 ML SQ SCH ×2 (00:05→09:30)
[2021-12-18] MEDS: NA CHLORIDE 0.9% 1,000 ML IV SCH ×2 (00:06→09:32)
[2021-12-18 00:44] VITALS: BMI 15.5
[2021-12-18 04:34] LABS: Absolute Lymphocytes (CBC) 1.5 K/uL (0.7-4.9); Hematocrit 36.8 % (36.0-45.0); Lymphocytes % 30.8 % (15.3-44.8); MPV 8.7 fL (7.6-11.3); RBC Red Blood Cell Count 3.76 M/uL (3.86-4.86)
[2021-12-18 04:37] LABS: Protime INR 1.09
[2021-12-18 04:51] LABS: ALT/SGPT 14 U/L (12-78); AST/SGOT 10 U/L (15-37); Albumin 2.9 g/dL (3.4-5.0); Alkaline Phosphatase 68 U/L (45-117); BUN Blood Urea Nitrogen 10 mg/dL (7-18); Bicarbonate 29 mmol/L (21-32); Bilirubin Total 0.6 mg/dL (0.2-1.0); Glucose Level 95 mg/dL (74-106); HDL Cholesterol 50 mg/dL (40-60); LDL Cholesterol, Calculated 91 (<130); Magnesium 2.2 mg/dL (1.8-2.4); Potassium 3.3 mmol/L (3.5-5.1); Protein, Total 6.1 g/dL (6.4-8.2); Sodium Level 140 mmol/L (136-145)
[2021-12-18] MEDS ORDERED: INFLUENZA VACCINE (for 6+ mo) 0.5 ML DOSE IMVAC ONE (08:00)
[2021-12-18] MEDS ORDERED: ASPIRIN EC 81 MG TAB PO SCH (09:00)
[2021-12-18] MEDS ORDERED: CLOPIDOGREL 75 MG TABLET PO SCH (09:00)
[2021-12-18] MEDS ORDERED: POTASSIUM CL SA 10 MEQ TAB PO ONE (09:00)
--- NOTE | 2021-12-18 12:08 | RAD REPORT ---
EXAM DESCRIPTION: CT - Head Brain Wo Cont - 12/18/2021 11:57 am CLINICAL HISTORY: placement of intubation tube, recent CVA COMPARISON: Head Brain Wo Cont dated 12/17/2021 TECHNIQUE: Axial 5 mm thick images of the head were obtained without IV contrast. All CT scans are performed using dose optimization technique as appropriate and may include automated exposure control or mA/KV adjustment according to patient size. FINDINGS: Since the prior day study a large 5 centimeter diameter intraparenchymal hematoma has deve loped in the right basal ganglia and medial right temporal lobe. This extends into the posterior righ t frontal lobe as well. Hemorrhage extends into the ventricular system where there is a large amount of blood filling and dilating the right lateral ventricle. Blood extends into and enlarges the third and fourth ventricles. Ventricular obstruction is present. Approximately 13 mm of right to left midli ne shift is present. Mastoid air cells and visualized portions of the paranasal sinuses are clear. No acute bony findings. IMPRESSION: Large 5 centimeter intraparenchymal hematoma in the right basal ganglia right uatsdin lob e and extending into the posterior right frontal lobe. Extensive intraventricular hemorrhage dilating the lateral third and fourth ventricles. This is a hem orrhagic obstructive hydrocephalus. Approximately 13 mm of right to left midline shift.
[2021-12-18 12:34] VITALS: O2SAT 100
[2021-12-18] MEDS ORDERED: MIDAZOLAM HCL 2 MG/2 ML INJ IV PRN (13:08)
[2021-12-18] MEDS ORDERED: FENTANYL CITR 100 MCG/2 ML IV PRN (13:08)
[2021-12-18] MEDS ORDERED: LORazepam 2 MG/ML VIAL IV PRN (13:08)
[2021-12-18] MEDS ORDERED: HALOPERIDOL LACT 5 MG/ML INJ IV PRN (13:08)
[2021-12-18] MEDS ORDERED: RSI MEDICATION KIT IV ONE (13:12)
[2021-12-18] MEDS ORDERED: ROCURONIUM 50 MG/5 ML VIAL IV ONE (13:14)
[2021-12-18] MEDS ORDERED: ETOMIDATE 20 MG/10 ML VIAL IV ONE (13:14)
--- NOTE | 2021-12-18 14:13 | ECHO ---
HEIGHT: 5 ft 6 in WEIGHT: 96 lb 8 oz DATE OF STUDY: 12/18/[address]: Austin Finley MD 2-DIMENSIONAL: YES M.MODE: YES DOPPLER: YES COLOR FLOW: YES TDS: PORTABLE: DEFINITY: BUBBLE STUDY: DIAGNOSIS: STROKE CARDIAC HISTORY: CATHERIZATION: NO SURGERY: NO PROSTHETIC VALVE: NO PACEMAKER: NO MEASUREMENTS (cm) DIASTOLIC (NORMALS) SYSTOLIC (NORMALS) IVSd 1.1 (0.6-1.2) LA Diam 3.1 (1.9-4.0) LVEF 65% LVIDd 2.6 (3.5-5.7) LVIDs 1.7 (2.0-3.5) %FS 34% LVPWd 1.3 (0.6-1.2) Ao Diam 2.7 (2.0-3.7) 2 DIMENSIONAL ASSESSMENT: RIGHT ATRIUM: NORMAL LEFT ATRIUM: NORMAL RIGHT VENTRICLE: NORMAL LEFT VENTRICLE: NORMAL TRICUSPID VALVE: NORMAL MITRAL VALVE: NORMAL PULMONIC VALVE: NORMAL AORTIC VALVE: NORMAL PERICARDIAL EFFUSION: NONE AORTIC ROOT: NORMAL LEFT VENTRICULAR WALL MOTION: NORMAL DOPPLER/COLOR FLOW: SEE BELOW COMMENTS: NORMAL LEFT VENTRICULAR EJECTION FRACTION 60-65%. NORMAL WALL MOTION. MILD MITRAL REGURGITATION. MILD TRICUSPID REGURGITATION. TECHNOLOGIST: NISHANT OTERO
[2021-12-18] MEDS ORDERED: ATROPINE SULF 1 MG/10 ML SYR IV ONE (15:07)
[2021-12-18 15:44] VITALS: BP 54/42; TEMP 98.3
--- NOTE | 2021-12-22 03:14 | P.DS ---
Discharge Date: 12/18/21 Primary Care Provider: [place] Disposition: Reason for Admission: subacute stroke Brief History of Present Illness: Mr. Martin is an 81 yo F with dementia, COPD, HTN, HLD who was brought in today by EMS for increased weakness and confusion. Per , these symptoms have been ongoing for the past 2 weeks but have been acutely worse over the past 2 days. He says that she has been getting up in the middle of the night, thinking that she has guests over, and beginning to cook for them. Today he was unable to get her out of bed so he activated EMS. At baseline, patient is ambulatory independently. She is AOx4 at bedside. She smokes 2 packs per day. Hospital Course: Patient's ischemic infarct converted into a hemorrhagic infarct. Patient had to be resuscitated. Were able to get a blood pressure back but CT imaging revealed a large amount of hemorrhage. Family decided to withdraw care. Patient at 3:08 p.m. Laboratory Data at Discharge: WBC 4.90 K/uL (4.3-10.9) 12/18/21 04:15 Hgb 12.5 g/dL (12.0-15.0) 12/18/21 04:15 Hct 36.8 % (36.0-45.0) D 12/18/21 04:15 Plt Count 195 K/uL (152-406) 12/18/21 04:15 PT 12.6 SECONDS (9.5-12.5) H 12/18/21 04:15 INR 1.09 12/18/21 04:15 APTT 36.9 SECONDS (24.3-36.9) 12/18/21 04:15 Sodium 140 mmol/L (136-145) 12/18/21 04:15 Potassium 3.3 mmol/L (3.5-5.1) L 12/18/21 04:15 BUN 10 mg/dL (7-18) 12/18/21 04:15 Creatinine 0.46 mg/dL (0.55-1.3) L 12/18/21 04:15 Glucose 95 mg/dL (74-106) 12/18/21 04:15 Magnesium 2.2 mg/dL (1.8-2.4) 12/18/21 04:15 Total Bilirubin 0.6 mg/dL (0.2-1.0) 12/18/21 04:15 AST 10 U/L (15-37) L 12/18/21 04:15 ALT 14 U/L (12-78) 12/18/21 04:15 Alkaline Phosphatase 68 U/L (45-117) 12/18/21 04:15 Triglycerides 94 mg/dL (<150) 12/18/21 04:15 Cholesterol 160 mg/dL (<200) 12/18/21 04:15 HDL Cholesterol 50 mg/dL (40-60) 12/18/21 04:15 Cholesterol/HDL Ratio 3.20 12/18/21 04:15 Amylase 109 U/L (25-115) 12/17/21 15:03 Lipase 82 U/L (73-393) 12/17/21 15:03 Home Medications: Montelukast [Singulair*] 1 tab PO DAILY 04/27/20 Pravastatin Sodium 1 tab PO BEDTIME 04/27/20 Docusate [Colace Cap*] 100 mg PO BID 30 Days #60 cap 05/02/20 Albuterol Inhaler [Ventolin Inhaler*] 2 puff IH BID 05/14/20 Aspirin [Aspirin EC 81 MG] 1 tab PO DAILY 05/14/20 Omeprazole 1 tab PO BEDTIME 05/14/20 Ferrous Sulfate 325 mg PO BID #60 tablet 05/15/20 Physician Discharge Instructions: Patient . Body was released to home. Followup: NONE,NONE [Primary Care Provider] - Time spent managing pt's care (in minutes): 35
--- NOTE | 2021-12-22 03:16 | P.PN ---
Date of Service: 12/18/21 A rapid response was called to patient's room. Patient was unresponsive. We were not able to arouse patient's so decision was made to intubate the patient. We decided to protect the airway. Intubation without difficulty. Patient received atropine. Blood pressure remained stable. A margin CT scan performed which revealed hemorrhagic infarct. Patient was taken ICU.
== END 2021-12-18 15:08 | disposition expired | DRG 64 ==
LOC: ER 13:56 → ERHOLD 18:23 → 2ND 22:43 → 3RD-ICU 12-18 12:18
PROVIDERS: ADMIT Hospitalist; ATTEND Hospitalist
PROC: 0BH17EZ Insertion of Endotracheal Airway into Trachea, Via Natural or Artificial Opening (ICD-10-PCS; principal; 2021-12-18)
PROC: 5A1935Z Respiratory Ventilation, Less than 24 Consecutive Hours (ICD-10-PCS; 2021-12-18)
DX: I63.9 Cerebral infarction, unspecified (principal); I61.5 Nontraumatic intracerebral hemorrhage, intraventricular; I10 Essential (primary) hypertension; E78.5 Hyperlipidemia, unspecified; J44.9 Chronic obstructive pulmonary disease, unspecified; K21.9 Gastro-esophageal reflux disease without esophagitis; R53.1 Weakness; R29.702 NIHSS score 2; F03.90 Unspecified dementia, unspecified severity, without behavioral disturbance, psychotic disturbance, mood disturbance, and anxiety; F17.210 Nicotine dependence, cigarettes, uncomplicated; Z20.822 Contact with and (suspected) exposure to COVID-19
CPT/HCPCS: 36415; 70450; 71045; 80048; 80053; 80061; 80076; 81003; 81015; 82150; 82550; 82553; 83605; 83690; 83735; 84145; 84484; 85025; 85610; 85730; 87040; 92610; 93005; 93306; 94002; 94003; 99285; J1650; J7030; U0003